=== PATIENT | female | born 1945 | race Hispanic/Latino ===

== ENCOUNTER 2017-02-18 11:35 | Inpatient (IN) | payer BC, MEDICARE ==
[2017-02-18] MEDS ORDERED: Albuterol-Ipratrop 3 mg / 0.5 (3 ml) UD INH STA (11:55)
--- NOTE | 2017-02-18 12:11 | C.PDOC ---
History Of Present Illness 71 y/o female pmhx COPD presents to the ED with complains of cough and congestion worsening over the past 2 days. Pt brought in by EMS, given multiple nebulizers with solumedrol, symptoms mildly improving. Pt denies fever, chills, chest pain, SOB or any other complaints. Time Seen by Provider: 02/18/17 11:45 Chief Complaint (Nursing): Shortness Of Breath History Per: Patient History/Exam Limitations: no limitations Onset/Duration Of Symptoms: Days Current Symptoms Are (Timing): Worse Associated Symptoms: denies: Fever, Chest Pain Recent travel outside of the [place]: No Past Medical History Reviewed: Historical Data, Nursing Documentation, Vital Signs Vital Signs: Last Vital Signs Temp 97.7 F 02/23/17 04:00 Pulse 76 02/23/17 08:00 Resp 25 H 02/23/17 08:00 BP 182/90 H 02/23/17 08:00 Pulse Ox 95 02/23/17 08:00 - Medical History PMH: Asthma, Bronchitis, COPD, HTN - [facility] Procedures ASSISTANCE WITH RESPIRATORY VENTILATION, >96 HRS, CPAP (11/15/15) INFLUENZA VACCINATION (12/11/14) VACCINATION NEC (12/11/14) Family History: States: Unknown Family Hx - Social History Hx Tobacco Use: Yes Hx Alcohol Use: No Hx Substance Use: No - Immunization History Hx Tetanus Toxoid Vaccination: No Hx Influenza Vaccination: No Hx Pneumococcal Vaccination: No Review Of Systems Except As Marked, All Systems Reviewed And Found Negative. Constitutional: Negative for: Fever ENT: Positive for: Nose Congestion Cardiovascular: Negative for: Chest Pain Respiratory: Positive for: Cough. Negative for: Shortness of Breath Physical Exam - Physical Exam Appears: Non-toxic, No Acute Distress Skin: Warm, Dry, No Rash Head: Atraumatic, Normacephalic Throat: Normal, No Erythema Neck: Normal ROM, Supple Chest: Symmetrical Cardiovascular: Rhythm Regular, No Murmur Respiratory: Decreased Breath Sounds (diminished), No Rales, No Rhonchi, Wheezing (bilateral) Gastrointestinal/Abdominal: Soft Extremity: No Pedal Edema Extremity: Bilateral: Atraumatic Neurological/Psych: Oriented x3 ED Course And Treatment - Laboratory Results Result Diagrams: 02/22/17 06:18 02/22/17 06:18 ECG: Interpreted By Me, Viewed By Me Rate From EC (BPM) O2 Sat by Pulse Oximetry: 98 (on room air) Pulse Ox Interpretation: Normal Medical Decision Making Medical Decision Making: suspected copd exacerbation ,r/o pna- labs imaging pendning. pt spike fever on arrival, antibiotics ordered Plan: EKG, CXR, labs, UA, IV fluids ekg MAT 116 1250: pt with persistent symptoms, wheezing, noted bnp. lasix ordered. accepted by dr munoz Disposition - Disposition Disposition: HOSPITALIZED Disposition Time: 12:52 Condition: FAIR - Clinical Impression Clinical Impression: CHF (congestive heart failure) - Scribe Statement The provider has reviewed the documentation as recorded by the Natalie Booth Provider Attestation: All medical record entries made by the Natalie were at my direction and personally dictated by me. I have reviewed the chart and agree that the record accurately reflects my personal performance of the history, physical exam, medical decision making, and the department course for this patient. I have also personally directed, reviewed, and agree with the discharge instructions and disposition. Decision To Admit - Pt Status Changed To: Hospital Disposition Of: Inpatient - Admit Certification Admit to Inpatient:: After my assessment, the patient will require hospitalization for at least two midnights. This is because of the severity of symptoms shown, intensity of services needed, and/or the medical risk in this patient being treated as an outpatient. - InPatient: Physician Admission Certification: I certify that this patient requires 2 or more midnights of care for the following reason:: pt with copd, comorbitites, needs iv steriods - . Bed Request Type: Telemetry Admitting Physician: Rachell Munoz Patient Diagnosis: CHF (congestive heart failure)
[2017-02-18 12:21] LABS: BASO # 0.1 K/uL (0.0-0.2); BASO % 1.1 % (0.0-2.0); EOS % 0.6 % (0.0-4.0); HEMATOCRIT 41.8 % (34.0-47.0); LYMPH # 0.6 K/uL (1.0-4.3); LYMPH % 8.7 % (20.0-40.0); MEAN CELL VOLUME 82.2 fL (81.0-99.0); MEAN CORPUSCULAR HEMOGLOBIN 26.6 pg (27.0-31.0); MEAN CORPUSCULAR HGB CONC 32.4 g/dL (33.0-37.0); MEAN PLATELET VOLUME 8.5 fL (7.2-11.7); MONO # 0.6 K/uL (0.0-0.8); MONO % 7.8 % (0.0-10.0); PLATELET COUNT 259 K/uL (130-400); WHITE BLOOD COUNT 7.2 K/uL (4.8-10.8)
[2017-02-18] MEDS ORDERED: Piperacill/Tazo 3.375gm in Dex 50 ML IVPB STA (12:23)
[2017-02-18 12:24] LABS: CHLORIDE 93 mmol/L (98-107)
[2017-02-18 12:25] LABS: POTASSIUM 3.3 mmol/L (3.6-5.2); SODIUM 135 mmol/L (132-148)
[2017-02-18 12:28] LABS: ALB/GLOB RATIO 1.3 (1.0-2.1); ALKALINE PHOSPHATASE 70 U/L (38-126); ALT/SGPT 20 U/L (9-52); AST/SGOT 27 U/L (14-36); BILIRUBIN,TOTAL 0.5 mg/dL (0.2-1.3); BLOOD UREA NITROGEN 13 mg/dL (7-17); CALCIUM 9.5 mg/dl (8.6-10.4); CARBON DIOXIDE 28 mmol/L (22-30); GFR AFRICAN-AMERICAN > 60; GLUCOSE,RANDOM 136 mg/dL (65-105); TOTAL PROTEIN 7.5 g/dL (6.3-8.3)
[2017-02-18 12:29] LABS: VENOUS BLOOD GAS BASE EXCESS 4.9 mmol/L (0.0-2.0); VENOUS BLOOD GAS PCO2 36 mmHg (40-60)
[2017-02-18] MEDS ORDERED: Albuterol-Ipratrop 3 mg / 0.5 (3 ml) UD ONE ×2 (12:34→15:03)
[2017-02-18 12:45] LABS: BASOPHIL 1 % (0-2); EOSINOPHIL 1 % (0-4); NEUTROPHIL 83 % (50-75); TOTAL CELLS COUNTED 100
[2017-02-18] MEDS ORDERED: Potassium Chloride 20 mEq ER Tab PO STA ×2 (12:53→18:17)
[2017-02-18] MEDS ORDERED: Piperacillin/Tazobact 3.375 gm 100 ML IVPB ONE (13:07)
[2017-02-18] MEDS ORDERED: Potassium Chloride 20 mEq/15 ml LIQ UD ONE (13:07)
--- NOTE | 2017-02-18 13:55 | RAD ---
PROCEDURE: CHEST RADIOGRAPH, 1 VIEW Technique: Single view portable semi erect @ 12:10. HISTORY: chest pain COMPARISON: 11/06/2015. FINDINGS: LUNGS: Clear. PLEURA: No pneumothorax or pleural fluid seen. CARDIOVASCULAR: Alli for cardiac OSSEOUS STRUCTURES: No significant abnormalities. VISUALIZED UPPER ABDOMEN: Normal. OTHER FINDINGS: None. IMPRESSION: No active disease. No acute/significant interval changes.
[2017-02-18] MEDS: Albuterol-Ipratrop 3 mg / 0.5 (3 ml) UD INH SCH ×2 (15:02→22:00)
[2017-02-18 15:18] LABS: RBC URINE 3 /hpf (0-3); URINE BILIRUBIN NEGATIVE (NEGATIVE); URINE BLOOD 1+ (NEGATIVE); URINE COLOR Straw (YELLOW); URINE GLUCOSE (UA) NORMAL (Normal); URINE KETONE NEGATIVE (NEGATIVE); URINE LEUKOCYTE ESTERASE NEG Leu/uL (Negative); URINE PROTEIN NEGATIVE (NEGATIVE); URINE UROBILINOGEN NORMAL mg/dL (0.2-1.0); WBC URINE 3 /hpf (0-5)
--- NOTE | 2017-02-18 15:20 | CP.PCM.HP ---
History of Present Illness - History of Present Illness History of Present Illness: 71 years old female patient with past medical history of bronchitis COPD hypertension asthma now presented with complaint of nasal congestion and cough since last 2 days. Patient was brought to ED by EMS who treated the patient with nebulizers with Solu-Medrol. Symptoms improving. No fever, vomiting, dizziness, chest pain. Present on Admission - Present on Admission Any Indicators Present on Admission: No Past Patient History - Infectious Disease Hx of Infectious Diseases: None - Past Medical History & Family History Past Medical History?: Yes - Past Social History Smoking Status: Heavy Smoker > 10 Cigarettes Daily - CARDIAC Hx Hypertension: Yes - PULMONARY Hx Asthma: Yes Hx Bronchitis: Yes Hx Chronic Obstructive Pulmonary Disease (COPD): Yes - NEUROLOGICAL Hx Neurological Disorder: No - HEENT Hx HEENT Problems: No Other/Comment: uses bifocal eyeglasses - RENAL Hx Chronic Kidney Disease: No - ENDOCRINE/METABOLIC Hx Endocrine Disorders: No - HEMATOLOGICAL/ONCOLOGICAL Hx Blood Disorders: Yes - INTEGUMENTARY Hx Dermatological Problems: No - MUSCULOSKELETAL/RHEUMATOLOGICAL Hx Musculoskeletal Disorders: No Hx Falls: No - GASTROINTESTINAL Hx Gastrointestinal Disorders: No - GENITOURINARY/GYNECOLOGICAL Hx Genitourinary Disorders: No - PSYCHIATRIC Hx Substance Use: No - SURGICAL HISTORY Hx Surgeries: Yes Other/Comment: multiple removal of lymphoma-left groin(1989) - ANESTHESIA Hx Anesthesia: Yes Hx Anesthesia Reactions: No Hx Malignant Hyperthermia: No Meds Home Medications: Home Medication List Medication Instructions Recorded Confirmed Type Losartan [Cozaar] 100 mg PO DAILY #30 tab 02/26/17 Rx Methylprednisolone [Medrol Dose 4 mg PO DAILY #21 mg 02/26/17 Rx Pack (21 tabs)] Rivaroxaban [Xarelto] 20 mg PO DAILY #14 tab 02/26/17 Rx Verapamil HCl [Calan Sr] 240 mg PO DAILY #30 ter 02/26/17 Rx hydroCHLOROthiazide [Hydrodiuril] 25 mg PO DAILY #30 tab 02/26/17 Rx Allergies/Adverse Reactions: Allergies Allergy/AdvReac Type Severity Reaction Status Date / Time No Known Allergies Allergy Verified 02/18/17 11:43 Results - Vital Signs Recent Vital Signs: Last Vital Signs Temp 100.4 F H 02/18/17 11:35 Pulse 110 H 02/18/17 11:35 Resp 24 02/18/17 11:38 BP 138/75 02/18/17 11:35 Pulse Ox 98 02/18/17 12:54 - Labs Result Diagrams: 02/22/17 06:18 02/22/17 06:18 Labs: Laboratory Results - last 24 hr 02/18/17 12:54 Influenza Typ A,B (EIA) Pos for influenza b H Assessment & Plan (1) Atrial fibrillation with RVR Status: Acute (2) CHF (congestive heart failure) Status: Acute (3) HTN (hypertension) Status: Acute (4) Hyponatremia Status: Acute (5) Influenza B Status: Acute (6) Prophylactic measure Status: Acute (7) Respiratory failure Status: Acute (8) COPD (chronic obstructive pulmonary disease) Status: Chronic (9) Chronic sinusitis with recurrent bronchitis Status: Chronic Priority: High (10) Hx of lymphoma Status: Chronic (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
[2017-02-18] MEDS: Moxifloxacin IV 400mg/250ml NS 250 ML IVPB SCH (18:45)
[2017-02-18] MEDS ORDERED: Albuterol-Ipratrop 3 mg / 0.5 (3 ml) UD INH SCH (20:00)
[2017-02-18] MEDS: MethylPREDNISolone 40 mg Vial IVP SCH (21:52)
[2017-02-18] MEDS: Fluticasone-Salmeterol 250-50mcg Diskus INH SCH (22:00)
[2017-02-19] MEDS: Albuterol-Ipratrop 3 mg / 0.5 (3 ml) UD INH SCH ×4 (01:33→20:27)
[2017-02-19] MEDS: MethylPREDNISolone 40 mg Vial IVP SCH ×3 (05:38→21:25)
[2017-02-19] MEDS: Fluticasone-Salmeterol 250-50mcg Diskus INH SCH ×2 (09:29→20:27)
[2017-02-19] MEDS: Tiotropium 18 mcg Cap For Inhalation IH SCH (09:30)
[2017-02-19] MEDS: Pantoprazole 40 mg EC Tab PO SCH (10:29)
[2017-02-19] MEDS: Enoxaparin 40 mg Syringe SC SCH (10:29)
[2017-02-19] MEDS: Theophylline 200mg ER 24 hrs Cap PO SCH (10:29)
--- NOTE | 2017-02-19 10:33 | CP.PCM.PN ---
Subjective - Date & Time of Evaluation Date of Evaluation: 02/19/17 Time of Evaluation: 11:20 - Subjective Subjective: clinically same Objective - Vital Signs/Intake and Output Vital Signs (last 24 hours): Temp Pulse Resp BP Pulse Ox 98 F 87 20 120/70 93 L 02/19/17 07:00 02/19/17 07:00 02/19/17 07:00 02/19/17 10:29 02/19/17 07:00 Intake and Output: 02/19/17 02/19/17 06:59 18:59 Intake Total 100 Output Total 250 Balance -150 - Medications Medications: Current Medications Albuterol/Ipratropium (Duoneb 3 Mg/0.5 Mg (3 Ml) Ud) 3 ml INH RQ6 [facility] Last Admin: 02/19/17 07:27 Dose: 3 ml Enoxaparin Sodium (Lovenox) 40 mg SC DAILY [facility] Last Admin: 02/19/17 10:29 Dose: 40 mg Furosemide (Lasix) 40 mg IVP DAILY [facility] Last Admin: 02/19/17 10:29 Dose: 40 mg Moxifloxacin HCl (Avelox Iv 400mg/250ml Ns) 250 mls @ 167 mls/hr IVPB Q24H [facility] Last Admin: 02/18/17 18:45 Dose: 167 mls/hr Losartan Potassium (Cozaar) 50 mg PO DAILY [facility] Last Admin: 02/19/17 10:29 Dose: 50 mg Methylprednisolone (Solu-Medrol) 60 mg IVP Q8H [facility] Last Admin: 02/19/17 05:38 Dose: 60 mg Montelukast Sodium (Singulair) 10 mg PO HS [facility] Last Admin: 02/18/17 21:51 Dose: 10 mg Oseltamivir Phosphate (Tamiflu Cap) 75 mg PO BID [facility] Stop: 02/24/17 09:03 Last Admin: 02/19/17 10:29 Dose: 75 mg Pantoprazole Sodium (Protonix Ec Tab) 40 mg PO DAILY [facility] Last Admin: 02/19/17 10:29 Dose: 40 mg Fluticasone/Salmeterol (Advair Diskus 250/50) 1 puff INH RQ12 [facility] Last Admin: 02/19/17 09:29 Dose: 1 puff Theophylline (Ahsan-24) 200 mg PO DAILY [facility] Last Admin: 02/19/17 10:29 Dose: 200 mg Tiotropium [place] (Spiriva) 18 mcg IH RQD [facility] Last Admin: 02/19/17 09:30 Dose: 18 mcg - Labs Labs: PT 11.7 SECONDS (9.7-12.2) 02/18/17 12:13 INR 1.0 02/18/17 12:13 APTT 38 SECONDS (21-34) H 02/18/17 12:13 - Constitutional Appears: Well - Head Exam Head Exam: ATRAUMATIC, NORMAL INSPECTION, NORMOCEPHALIC - Eye Exam Eye Exam: EOMI, Normal appearance, PERRL Pupil Exam: NORMAL ACCOMODATION, PERRL - ENT Exam ENT Exam: Mucous Membranes Moist, Normal Exam - Neck Exam Neck Exam: Full ROM, Normal Inspection. absent: Lymphadenopathy - Respiratory Exam Respiratory Exam: Decreased Breath Sounds - Cardiovascular Exam Cardiovascular Exam: REGULAR RHYTHM, +S1, +S2 - GI/Abdominal Exam GI & Abdominal Exam: Soft, Diminished Bowel Sounds - Rectal Exam Rectal Exam: Deferred Assessment and Plan (1) Atrial fibrillation with RVR Status: Acute (2) CHF (congestive heart failure) Status: Acute (3) HTN (hypertension) Status: Acute (4) Hyponatremia Status: Acute (5) Influenza B Status: Acute (6) Prophylactic measure Status: Acute (7) Respiratory failure Status: Acute (8) COPD (chronic obstructive pulmonary disease) Status: Chronic (9) Chronic sinusitis with recurrent bronchitis Status: Chronic (10) Hx of lymphoma Status: Chronic (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
[2017-02-19 11:45] LABS: CHLORIDE 95 mmol/L (98-107)
[2017-02-19 11:46] LABS: POTASSIUM 3.6 mmol/L (3.6-5.2); SODIUM 139 mmol/L (132-148)
[2017-02-19 11:48] LABS: ALB/GLOB RATIO 1.2 (1.0-2.1); AST/SGOT 33 U/L (14-36); BILIRUBIN,TOTAL 0.3 mg/dL (0.2-1.3); BLOOD UREA NITROGEN 24 mg/dL (7-17); CARBON DIOXIDE 29 mmol/L (22-30); GFR AFRICAN-AMERICAN > 60; TOTAL PROTEIN 7.5 g/dL (6.3-8.3)
[2017-02-19 11:49] LABS: ALKALINE PHOSPHATASE 56 U/L (38-126); ALT/SGPT 22 U/L (9-52); CALCIUM 9.1 mg/dl (8.6-10.4); GLUCOSE,RANDOM 172 mg/dL (65-105)
[2017-02-19] MEDS: Moxifloxacin IV 400mg/250ml NS 250 ML IVPB SCH (13:46)
--- NOTE | 2017-02-19 18:46 | CP.PCM.CON ---
History of Present Illness - History of Present Illness History of Present Illness: flu illness with exacerbation of copd, currently feels much better, with resp. diff. Review of Systems - Review of Systems All systems: reviewed and no additional remarkable complaints except - Respiratory Respiratory: Cough Past Patient History - Infectious Disease Hx of Infectious Diseases: None - Past Medical History & Family History Past Medical History?: Yes - Past Social History Smoking Status: Former Smoker - CARDIAC Hx Hypertension: Yes - PULMONARY Hx Chronic Obstructive Pulmonary Disease (COPD): Yes - NEUROLOGICAL Hx Neurological Disorder: No - HEENT Hx HEENT Problems: No Other/Comment: uses bifocal eyeglasses - RENAL Hx Chronic Kidney Disease: No - ENDOCRINE/METABOLIC Hx Endocrine Disorders: No - HEMATOLOGICAL/ONCOLOGICAL Hx Blood Disorders: No - INTEGUMENTARY Hx Dermatological Problems: No - MUSCULOSKELETAL/RHEUMATOLOGICAL Hx Musculoskeletal Disorders: No Hx Falls: No - GASTROINTESTINAL Hx Gastrointestinal Disorders: No - GENITOURINARY/GYNECOLOGICAL Hx Genitourinary Disorders: No - PSYCHIATRIC Hx Substance Use: No - SURGICAL HISTORY Hx Surgeries: Yes Other/Comment: multiple removal of lymphoma-left groin(1989) - ANESTHESIA Hx Anesthesia: Yes Hx Anesthesia Reactions: No Hx Malignant Hyperthermia: No Meds Allergies/Adverse Reactions: Allergies Allergy/AdvReac Type Severity Reaction Status Date / Time No Known Allergies Allergy Verified 02/18/17 11:43 - Medications Medications: Current Medications Albuterol/Ipratropium (Duoneb 3 Mg/0.5 Mg (3 Ml) Ud) 3 ml INH RQ6 [facility] Last Admin: 02/19/17 13:59 Dose: 3 ml Enoxaparin Sodium (Lovenox) 40 mg SC DAILY [facility] Last Admin: 02/19/17 10:29 Dose: 40 mg Furosemide (Lasix) 40 mg IVP DAILY [facility] Last Admin: 02/19/17 10:29 Dose: 40 mg Moxifloxacin HCl (Avelox Iv 400mg/250ml Ns) 250 mls @ 167 mls/hr IVPB Q24H [facility] Last Admin: 02/19/17 13:46 Dose: 167 mls/hr Losartan Potassium (Cozaar) 50 mg PO DAILY [facility] Last Admin: 02/19/17 10:29 Dose: 50 mg Methylprednisolone (Solu-Medrol) 60 mg IVP Q8H [facility] Last Admin: 02/19/17 13:46 Dose: 60 mg Montelukast Sodium (Singulair) 10 mg PO HS [facility] Last Admin: 02/18/17 21:51 Dose: 10 mg Oseltamivir Phosphate (Tamiflu Cap) 75 mg PO BID [facility] Stop: 02/24/17 09:03 Last Admin: 02/19/17 17:33 Dose: 75 mg Pantoprazole Sodium (Protonix Ec Tab) 40 mg PO DAILY [facility] Last Admin: 02/19/17 10:29 Dose: 40 mg Fluticasone/Salmeterol (Advair Diskus 250/50) 1 puff INH RQ12 [facility] Last Admin: 02/19/17 09:29 Dose: 1 puff Theophylline (Ahsan-24) 200 mg PO DAILY [facility] Last Admin: 02/19/17 10:29 Dose: 200 mg Tiotropium [place] (Spiriva) 18 mcg IH RQD [facility] Last Admin: 02/19/17 09:30 Dose: 18 mcg Physical Exam - Constitutional Appears: No Acute Distress - Head Exam Head Exam: ATRAUMATIC, NORMOCEPHALIC - Eye Exam Eye Exam: Normal appearance - ENT Exam ENT Exam: Mucous Membranes Moist - Neck Exam Neck exam: Positive for: Normal Inspection - Respiratory Exam Respiratory Exam: Decreased Breath Sounds, Prolonged Expiratory Phase - Cardiovascular Exam Cardiovascular Exam: +S1, +S2 - GI/Abdominal Exam GI & Abdominal Exam: Normal Bowel Sounds - Rectal Exam Rectal Exam: Deferred - Back Exam Additional comments: kyphosis - Neurological Exam Neurological exam: Alert, Oriented x3 - Psychiatric Exam Psychiatric exam: Normal Affect, Normal Mood - Skin Skin Exam: Intact Results - Vital Signs Recent Vital Signs: Last Vital Signs Temp 97.9 F 02/19/17 16:00 Pulse 80 02/19/17 17:58 Resp 20 02/19/17 16:00 BP 137/74 02/19/17 16:00 Pulse Ox 97 02/19/17 16:00 - Labs Result Diagrams: 02/18/17 12:13 02/19/17 11:31 Labs: Laboratory Results - last 24 hr 02/19/17 11:31 Sodium 139 Potassium 3.6 Chloride 95 L Carbon Dioxide 29 Anion Gap 19 BUN 24 H Creatinine 1.0 Est GFR ( Amer) > 60 Est GFR (Non-Af Amer) 54 Random Glucose 172 H Calcium 9.1 Total Bilirubin 0.3 AST 33 ALT 22 Alkaline Phosphatase 56 Total Protein 7.5 Albumin 4.1 Globulin 3.4 Albumin/Globulin Ratio 1.2 Assessment & Plan (1) COPD (chronic obstructive pulmonary disease) Status: Chronic (2) COPD with exacerbation Status: Resolved (3) Influenza B Status: Acute
[2017-02-20] MEDS: Albuterol-Ipratrop 3 mg / 0.5 (3 ml) UD INH SCH ×4 (01:32→22:23)
[2017-02-20] MEDS: MethylPREDNISolone 40 mg Vial IVP SCH ×3 (05:17→22:30)
[2017-02-20] MEDS: Tiotropium 18 mcg Cap For Inhalation IH SCH (07:20)
[2017-02-20] MEDS: Fluticasone-Salmeterol 250-50mcg Diskus INH SCH (07:21)
[2017-02-20] MEDS: Pantoprazole 40 mg EC Tab PO SCH (11:03)
[2017-02-20] MEDS: Theophylline 200mg ER 24 hrs Cap PO SCH (11:03)
[2017-02-20] MEDS: Enoxaparin 40 mg Syringe SC SCH (11:04)
[2017-02-20] MEDS: Moxifloxacin IV 400mg/250ml NS 250 ML IVPB SCH (13:43)
[2017-02-20 16:19] LABS: BASO % 0.2 % (0.0-2.0); HEMATOCRIT 43.5 % (34.0-47.0); LYMPH # 0.8 K/uL (1.0-4.3); LYMPH % 4.7 % (20.0-40.0); MEAN CELL VOLUME 82.8 fL (81.0-99.0); MEAN CORPUSCULAR HEMOGLOBIN 26.6 pg (27.0-31.0); MEAN CORPUSCULAR HGB CONC 32.1 g/dL (33.0-37.0); MEAN PLATELET VOLUME 8.7 fL (7.2-11.7); MONO % 5.9 % (0.0-10.0); PLATELET COUNT 348 K/uL (130-400); WHITE BLOOD COUNT 17.8 K/uL (4.8-10.8)
--- NOTE | 2017-02-20 16:22 | CP.PCM.PN ---
<Gladys Toure - Last Filed: 02/20/17 16:24> Subjective - Date & Time of Evaluation Date of Evaluation: 02/20/17 Time of Evaluation: 16:00 - Subjective Subjective: Rapid Response Note Rapid response called at 15:59 for heart rate in 170s and 180s and chest pain. Patient reports chest tightness and pain for 30 minutes. Patient does not have any history of CAD or Atrial fibrillation documented. Patient denies CAD, a fib , thyroid disease history. Patient denies recent surgeries. Patient was moving around, "up and about" before hospital admission. Tachycardia on auscultation. Patient had Duoneb at 13:35. Lungs clear to auscultation. EKG, LACEY, d dimer, cbc, cmp, magnesium and theophylline level ordered stat. Theophylline and Avelox held. Patient given cardizem 20mg IVP with minimal response. Patient given cardizem 10mg IVP stat. HR went down to 120s-140s. Patient put on cardizem drip 10mg/hr. Monitoring BP throughout. After total of 30mg IVP BP was at 149/79. Patient put on nonrebreather. BP 129/79 after a few minutes on cardizem drip. HR still in 110s to 150s. Cardizem drip cut down to 8mg/hr due to decreasing BP. Demolition Specialist, Dr. Castro, consulted. Dr. Castro increased drip to 15mg/hr. Patient being transferred to ICU. Objective - Vital Signs/Intake and Output Vital Signs (last 24 hours): Temp Pulse Resp BP Pulse Ox 97.4 F L 88 20 124/67 96 02/20/17 07:00 02/20/17 07:00 02/20/17 07:00 02/20/17 11:04 02/20/17 07:00 Intake and Output: 02/20/17 02/20/17 06:59 18:59 Output Total 400 Balance -400 - Medications Medications: Current Medications Acetaminophen (Tylenol 325mg Tab) 650 mg PO Q6 PRN PRN Reason: Fever >100.4 F Last Admin: 02/20/17 12:18 Dose: 650 mg Albuterol/Ipratropium (Duoneb 3 Mg/0.5 Mg (3 Ml) Ud) 3 ml INH RQ6 [facility] Last Admin: 02/20/17 13:35 Dose: 3 ml Diltiazem HCl (Cardizem) 10 mg IVP STAT [facility] Stop: 02/20/17 16:13 Enoxaparin Sodium (Lovenox) 40 mg SC DAILY [facility] Last Admin: 02/20/17 11:04 Dose: 40 mg Furosemide (Lasix) 40 mg IVP DAILY [facility] Last Admin: 02/20/17 11:04 Dose: 40 mg Moxifloxacin HCl (Avelox Iv 400mg/250ml Ns) 250 mls @ 167 mls/hr IVPB Q24H [facility] Last Admin: 02/20/17 13:43 Dose: 167 mls/hr Losartan Potassium (Cozaar) 50 mg PO DAILY [facility] Last Admin: 02/20/17 11:03 Dose: 50 mg Methylprednisolone (Solu-Medrol) 40 mg IVP Q8 [facility] Last Admin: 02/20/17 13:46 Dose: 40 mg Montelukast Sodium (Singulair) 10 mg PO HS [facility] Last Admin: 02/19/17 21:25 Dose: 10 mg Oseltamivir Phosphate (Tamiflu Cap) 75 mg PO BID [facility] Stop: 02/24/17 09:03 Last Admin: 02/20/17 11:03 Dose: 75 mg Pantoprazole Sodium (Protonix Ec Tab) 40 mg PO DAILY [facility] Last Admin: 02/20/17 11:03 Dose: 40 mg Fluticasone/Salmeterol (Advair Diskus 250/50) 1 puff INH RQ12 [facility] Last Admin: 02/20/17 07:21 Dose: 1 puff Theophylline (Ahsan-24) 200 mg PO DAILY [facility] Last Admin: 02/20/17 11:03 Dose: 200 mg Tiotropium [place] (Spiriva) 18 mcg IH RQD [facility] Last Admin: 02/20/17 07:20 Dose: 18 mcg - Labs Labs: 02/19/17 11:31 PT 11.7 SECONDS (9.7-12.2) 02/18/17 12:13 INR 1.0 02/18/17 12:13 APTT 38 SECONDS (21-34) H 02/18/17 12:13 <Jamilah Luu V - Last Filed: 02/26/17 20:16> Objective - Vital Signs/Intake and Output Vital Signs (last 24 hours): Temp Pulse Resp BP Pulse Ox 98.2 F 77 20 134/85 97 02/26/17 15:00 02/26/17 15:00 02/26/17 15:00 02/26/17 15:00 02/26/17 15:00 - Labs Labs: 02/22/17 06:18 02/22/17 06:18 PT 11.7 SECONDS (9.7-12.2) 02/18/17 12:13 INR 1.0 02/18/17 12:13 APTT 38 SECONDS (21-34) H 02/18/17 12:13 Attending/Attestation - Attestation Notes (Text): Late computer entry: responded to rapid response for new onset atrial fibrillation. Patient denies prior heart problems. Patient given Cardizem IVP X1 but not rate controlled prompted Cardizem drip. ICU consulted given patient is cardizen drip and will need further monitoring to be titrated. PMD, Dr Caity Marrero notified and aware patient needs to be transferred to ICU for further monitoring.
[2017-02-20 16:29] LABS: POTASSIUM 3.9 mmol/L (3.6-5.2)
[2017-02-20 16:32] LABS: ALB/GLOB RATIO 1.3 (1.0-2.1); BILIRUBIN,TOTAL 0.3 mg/dL (0.2-1.3); CALCIUM 8.9 mg/dl (8.6-10.4); TOTAL PROTEIN 7.3 g/dL (6.3-8.3)
--- NOTE | 2017-02-20 16:51 | CP.PCM.CON ---
<Sarah Mccall - Last Filed: 02/20/17 17:43> History of Present Illness - History of Present Illness History of Present Illness: CRITICAL CARE CONSULT NOTE 71 year old female with PMHx significant for HTN, COPD and lymphoma s/p chemo presents for critical care monitoring following a STERILE PROCESS COORDINATOR for sudden new onset tachycardia (HR 140's-150s) on the medical floor at approximately 15:59pm. Patient states that she started experiencing a heart burn type-sensation around 15:30pm shortly after eating lunch. She thought it was just related to the meals but then the sensation changed to chest tightness which lasted for approximately half an hour. Patient states that she has never experienced this sensation before. She admits to initial dyspnea as well. She denies palpitations , nausea, vomiting, headaches, vision changes, paresthesias or subjective fevers or chills. Per the STERILE PROCESS COORDINATOR Note: Patient given cardizem 20mg IVP with minimal response. Patient then given cardizem 10mg IVP stat. HR went down to 120s-140s. Patient put on cardizem drip 10mg/hr. After total of 30mg IVP, BP was 149/79. Patient placed on nonrebreather. BP 129/79 after a few minutes on cardizem drip. HR still in 110s to 150s. Cardizem drip cut down to 8mg/hr due to decreasing BP. [employer], Dr. Castro, consulted. Dr. Castro increased drip to 15mg/hr. Patient later transferred for critical care monitoring. PMHx- as noted above PSHx- Excision of Lymphoma (groin many years ago ) Fam Hx- Two sisters of lung cancer. Other sister currently has lung cancer ; Mother lived to 90 years of age Social Hx- Smoked 1 ppd for 50+ years. Patient quit approx 2.5 years ago; Denies illicit drug use or alcohol use; She lives with daughter and grandson Allergies- Seasonal PMD: Dr. Francisco Review of Systems - Constitutional Constitutional: As Per HPI. absent: Fever, Frequent Falls, Headache - EENT Eyes: absent: Blind Spots, Blurred Vision, Change in Vision Ears: absent: Decreased Hearing Nose/Mouth/Throat: absent: Epistaxis, Dry Mouth - Cardiovascular Cardiovascular: As Per HPI, Chest Pain, Rapid Heart Rate - Respiratory Respiratory: Cough, Wheezing. absent: Stridor - Gastrointestinal Gastrointestinal: Heartburn. absent: Abdominal Pain, Belching - Musculoskeletal Musculoskeletal: As Per HPI - Integumentary Integumentary: As Per HPI, Dry Skin - Neurological Neurological: As Per HPI - Psychiatric Psychiatric: absent: Anxiety Past Patient History - Infectious Disease Hx of Infectious Diseases: None - Past Medical History & Family History Past Medical History?: Yes - Past Social History Smoking Status: Former Smoker Alcohol: None Drugs: Denies Home Situation {Lives}: With Family - CARDIAC Hx Hypertension: Yes - PULMONARY Hx Chronic Obstructive Pulmonary Disease (COPD): Yes - NEUROLOGICAL Hx Neurological Disorder: No - HEENT Hx HEENT Problems: No Other/Comment: uses bifocal eyeglasses - RENAL Hx Chronic Kidney Disease: No - ENDOCRINE/METABOLIC Hx Endocrine Disorders: No - HEMATOLOGICAL/ONCOLOGICAL Hx Blood Disorders: No - INTEGUMENTARY Hx Dermatological Problems: No - MUSCULOSKELETAL/RHEUMATOLOGICAL Hx Musculoskeletal Disorders: No Hx Falls: No - GASTROINTESTINAL Hx Gastrointestinal Disorders: No - GENITOURINARY/GYNECOLOGICAL Hx Genitourinary Disorders: No - PSYCHIATRIC Hx Substance Use: No - SURGICAL HISTORY Hx Surgeries: Yes Other/Comment: multiple removal of lymphoma-left groin(1989) - ANESTHESIA Hx Anesthesia: Yes Hx Anesthesia Reactions: No Hx Malignant Hyperthermia: No Meds Allergies/Adverse Reactions: Allergies Allergy/AdvReac Type Severity Reaction Status Date / Time No Known Allergies Allergy Verified 02/18/17 11:43 - Medications Medications: Current Medications Acetaminophen (Tylenol 325mg Tab) 650 mg PO Q6 PRN PRN Reason: Fever >100.4 F Last Admin: 02/20/17 12:18 Dose: 650 mg Albuterol/Ipratropium (Duoneb 3 Mg/0.5 Mg (3 Ml) Ud) 3 ml INH RQ6 [facility] Last Admin: 02/20/17 13:35 Dose: 3 ml Enoxaparin Sodium (Lovenox) 40 mg SC DAILY [facility] Last Admin: 02/20/17 11:04 Dose: 40 mg Furosemide (Lasix) 40 mg IVP DAILY [facility] Last Admin: 02/20/17 11:04 Dose: 40 mg Moxifloxacin HCl (Avelox Iv 400mg/250ml Ns) 250 mls @ 167 mls/hr IVPB Q24H [facility] Last Admin: 02/20/17 13:43 Dose: 167 mls/hr Diltiazem HCl 125 mg/ Dextrose 125 mls @ 10 mls/hr IV .[id number] KIM; 10 MG/HR PRN Reason: Protocol Losartan Potassium (Cozaar) 50 mg PO DAILY [facility] Last Admin: 02/20/17 11:03 Dose: 50 mg Methylprednisolone (Solu-Medrol) 40 mg IVP Q8 [facility] Last Admin: 02/20/17 13:46 Dose: 40 mg Montelukast Sodium (Singulair) 10 mg PO HS [facility] Last Admin: 02/19/17 21:25 Dose: 10 mg Oseltamivir Phosphate (Tamiflu Cap) 75 mg PO BID [facility] Stop: 02/24/17 09:03 Last Admin: 02/20/17 11:03 Dose: 75 mg Pantoprazole Sodium (Protonix Ec Tab) 40 mg PO DAILY [facility] Last Admin: 02/20/17 11:03 Dose: 40 mg Fluticasone/Salmeterol (Advair Diskus 250/50) 1 puff INH RQ12 [facility] Last Admin: 02/20/17 07:21 Dose: 1 puff Theophylline (Ahsan-24) 200 mg PO DAILY [facility] Last Admin: 02/20/17 11:03 Dose: 200 mg Tiotropium [place] (Spiriva) 18 mcg IH RQD [facility] Last Admin: 02/20/17 07:20 Dose: 18 mcg Physical Exam - Constitutional Appears: No Acute Distress - Head Exam Head Exam: ATRAUMATIC, NORMAL INSPECTION, NORMOCEPHALIC - Eye Exam Eye Exam: EOMI, Normal appearance, PERRL Pupil Exam: NORMAL ACCOMODATION, PERRL - ENT Exam ENT Exam: Mucous Membranes Moist - Neck Exam Neck exam: Positive for: Full Rom - Respiratory Exam Respiratory Exam: Wheezes, NORMAL BREATHING PATTERN. absent: Respiratory Distress, Stridor - Cardiovascular Exam Cardiovascular Exam: Tachycardia, +S1, +S2 - GI/Abdominal Exam GI & Abdominal Exam: Normal Bowel Sounds, Soft. absent: Tenderness - Extremities Exam Extremities exam: Positive for: full ROM, normal capillary refill, pedal pulses present - Back Exam Back exam: FULL ROM - Neurological Exam Neurological exam: Alert, CN II-XII Intact, Normal Gait, Oriented x3 - Psychiatric Exam Psychiatric exam: Normal Affect, Normal Mood - Skin Skin Exam: Dry, Normal Color, Warm Additional comments: decreased skin turgor Results - Vital Signs Recent Vital Signs: Last Vital Signs Temp 97.4 F L 02/20/17 07:00 Pulse 88 02/20/17 07:00 Resp 20 02/20/17 07:00 BP 124/67 02/20/17 11:04 Pulse Ox 96 02/20/17 07:00 - Labs Result Diagrams: 02/20/17 16:14 02/20/17 16:14 Labs: Laboratory Results - last 24 hr 02/20/17 02/20/17 16:02 16:14 WBC 17.8 H D RBC 5.26 H Hgb 14.0 Hct 43.5 MCV 82.8 MCH 26.6 L MCHC 32.1 L RDW 15.0 H Plt Count 348 MPV 8.7 Neut % (Auto) 89.2 H Lymph % (Auto) 4.7 L Howard % (Auto) 5.9 Eos % (Auto) 0.0 Baso % (Auto) 0.2 Neut # 15.8 H Lymph # 0.8 L Howard # 1.0 H Eos # 0.0 Baso # 0.0 Sodium 137 Potassium 3.9 Chloride 92 L Carbon Dioxide 29 Anion Gap 20 BUN 35 H Creatinine 1.1 Est GFR ( Amer) 59 Est GFR (Non-Af Amer) 49 POC Glucose (mg/dL) 134 H Random Glucose 137 H Calcium 8.9 Magnesium 2.0 Total Bilirubin 0.3 AST 37 H ALT 23 Alkaline Phosphatase 56 Total Creatine Kinase 237 H CK-MB (Mass) 8.60 H Troponin I, Quant 0.0800 Total Protein 7.3 Albumin 4.2 Globulin 3.2 Albumin/Globulin Ratio 1.3 Assessment & Plan - Assessment and Plan (Free Text) Assessment: 71 year old female with PMHx signficant for HTN, COPD and lymphoma s/p chemo presents for critical care monitoring following an STERILE PROCESS COORDINATOR on the floor for new onset tachycardia ( HR 140-150's) initially unresponsive to cardizem drip. Once transferred, patient responsive to IV labetalol. Will continue to monitor. Plan: Neuro: aaox3 in no acute distress Cardio: Hx of HTN Cardizem PO- not effective Cardizem drip- not effective Labetalol 20 mg IV given once- effective in bringing HR down Lopressor 5 mg IV Q6 F/U D-Dimer, Troponin III. (First two LACEY negative) Heart Healthy diet Pulm: On NRB- Saturation 100% Influenza Positive:Droplet, Contact precautions, Tamiflu PO BID (Started 02/19) Hx of COPD- Cont management per Pulm: Yohannes Cat Spiriva GI: Heart Healthy diet Endo: Check HgbA1c Maintain euglycemia Nephro: Continue to monitor BUN/Cr Monitor Ins and outs ID: Influenza positive- See aforementioned (under pulm) WBC - elevated Droplet, Contact precautions, Tamiflu PO BID (Started 02/19) MSK: PT/OT OOB to chair Prophylaxis: Lovenox 40 SC daily PPI 40mg PO daily <Karuna Falcon - Last Filed: 02/20/17 18:29> Meds - Medications Medications: Current Medications Acetaminophen (Tylenol 325mg Tab) 650 mg PO Q6 PRN PRN Reason: Fever >100.4 F Last Admin: 02/20/17 12:18 Dose: 650 mg Albuterol/Ipratropium (Duoneb 3 Mg/0.5 Mg (3 Ml) Ud) 3 ml INH RQ6 [facility] Last Admin: 02/20/17 13:35 Dose: 3 ml Enoxaparin Sodium (Lovenox) 40 mg SC DAILY [facility] Last Admin: 02/20/17 11:04 Dose: 40 mg Furosemide (Lasix) 40 mg IVP DAILY [facility] Last Admin: 02/20/17 11:04 Dose: 40 mg Moxifloxacin HCl (Avelox Iv 400mg/250ml Ns) 250 mls @ 167 mls/hr IVPB Q24H [facility] Last Admin: 02/20/17 13:43 Dose: 167 mls/hr Diltiazem HCl 125 mg/ Dextrose 125 mls @ 10 mls/hr IV .[id number] [facility]; 10 MG/HR PRN Reason: Protocol Last Titration: 02/20/17 17:15 Dose: 0 mg/hr Losartan Potassium (Cozaar) 50 mg PO DAILY [facility] Last Admin: 02/20/17 11:03 Dose: 50 mg Methylprednisolone (Solu-Medrol) 40 mg IVP Q8 [facility] Last Admin: 02/20/17 13:46 Dose: 40 mg Metoprolol Tartrate (Lopressor) 5 mg IVP Q6H [facility] Montelukast Sodium (Singulair) 10 mg PO HS [facility] Last Admin: 02/19/17 21:25 Dose: 10 mg Oseltamivir Phosphate (Tamiflu Cap) 75 mg PO BID [facility] Stop: 02/24/17 09:03 Last Admin: 02/20/17 17:56 Dose: 75 mg Pantoprazole Sodium (Protonix Ec Tab) 40 mg PO DAILY [facility] Last Admin: 02/20/17 11:03 Dose: 40 mg Fluticasone/Salmeterol (Advair Diskus 250/50) 1 puff INH RQ12 [facility] Last Admin: 02/20/17 07:21 Dose: 1 puff Theophylline (Ahsan-24) 200 mg PO DAILY [facility] Last Admin: 02/20/17 11:03 Dose: 200 mg Tiotropium [place] (Spiriva) 18 mcg IH RQD [facility] Last Admin: 02/20/17 07:20 Dose: 18 mcg Results - Vital Signs Recent Vital Signs: Last Vital Signs Temp 97.5 F L 02/20/17 17:00 Pulse 81 02/20/17 17:25 Resp 18 02/20/17 17:25 BP 81/51 L 02/20/17 17:25 Pulse Ox 98 02/20/17 17:25 - Labs Result Diagrams: 02/20/17 16:14 02/20/17 16:14 Labs: Laboratory Results - last 24 hr 02/20/17 02/20/17 02/20/17 16:02 16:14 18:01 WBC 17.8 H D RBC 5.26 H Hgb 14.0 Hct 43.5 MCV 82.8 MCH 26.6 L MCHC 32.1 L RDW 15.0 H Plt Count 348 MPV 8.7 Neut % (Auto) 89.2 H Lymph % (Auto) 4.7 L Howard % (Auto) 5.9 Eos % (Auto) 0.0 Baso % (Auto) 0.2 Neut # 15.8 H Lymph # 0.8 L Howard # 1.0 H Eos # 0.0 Baso # 0.0 Neutrophils % (Manual) 86 H Band Neutrophils % 2 Lymphocytes % (Manual) 5 L Monocytes % (Manual) 7 Platelet Estimate Normal D-Dimer, Quantitative < 200 Sodium 137 Potassium 3.9 Chloride 92 L Carbon Dioxide 29 Anion Gap 20 BUN 35 H Creatinine 1.1 Est GFR ( Amer) 59 Est GFR (Non-Af Amer) 49 POC Glucose (mg/dL) 134 H Random Glucose 137 H Calcium 8.9 Magnesium 2.0 Total Bilirubin 0.3 AST 37 H ALT 23 Alkaline Phosphatase 56 Total Creatine Kinase 237 H CK-MB (Mass) 8.60 H Troponin I, Quant 0.0800 Total Protein 7.3 Albumin 4.2 Globulin 3.2 Albumin/Globulin Ratio 1.3 Theophylline 11.9 Attending/Attestation - Attestation I have personally seen and examined this patient.: Yes I have fully participated in the care of the patient.: Yes I have reviewed all pertinent clinical information: Yes Notes (Text): 02/20/17 18:28 patient admitted with copd exacerbation a few days back. Today with cp and a. fib with rvr, no response to cardizem, responds well to labetalol. d/c lasix, bun/cr increasing. wbc count increased, but on steroids, moxifloxacin on hold, no fever, will follow wbc count in am.
[2017-02-20] MEDS ORDERED: Labetalol 25mg/5ml Syringe IVP STA (17:04)
[2017-02-20] MEDS ORDERED: Metoprolol Succinate 12.5 mg XL PO SCH (17:30)
[2017-02-20 18:14] LABS: NEUTROPHIL 86 % (50-75); TOTAL CELLS COUNTED 100
--- NOTE | 2017-02-20 18:39 | CP.PCM.PN ---
Subjective - Date & Time of Evaluation Date of Evaluation: 02/20/17 Time of Evaluation: 01:40 - Subjective Subjective: clinically same Objective - Vital Signs/Intake and Output Vital Signs (last 24 hours): Temp Pulse Resp BP Pulse Ox 97.5 F L 96 H 17 89/59 L 99 02/20/17 17:00 02/20/17 18:00 02/20/17 18:00 02/20/17 17:51 02/20/17 18:00 Intake and Output: 02/20/17 02/20/17 06:59 18:59 Intake Total 15 Output Total 400 0 Balance -400 15 - Medications Medications: Current Medications Acetaminophen (Tylenol 325mg Tab) 650 mg PO Q6 PRN PRN Reason: Fever >100.4 F Last Admin: 02/20/17 12:18 Dose: 650 mg Albuterol/Ipratropium (Duoneb 3 Mg/0.5 Mg (3 Ml) Ud) 3 ml INH RQ6 [facility] [place] Last Admin: 02/20/17 13:35 Dose: 3 ml Enoxaparin Sodium (Lovenox) 40 mg SC DAILY [facility] [place] Last Admin: 02/20/17 11:04 Dose: 40 mg Moxifloxacin HCl (Avelox Iv 400mg/250ml Ns) 250 mls @ 167 mls/hr IVPB Q24H [facility] [place] Last Admin: 02/20/17 13:43 Dose: 167 mls/hr Losartan Potassium (Cozaar) 50 mg PO DAILY [facility] [place] Last Admin: 02/20/17 11:03 Dose: 50 mg Methylprednisolone (Solu-Medrol) 40 mg IVP Q8 [facility] [place] Last Admin: 02/20/17 13:46 Dose: 40 mg Metoprolol Tartrate (Lopressor) 5 mg IVP Q6H [facility] [place] Montelukast Sodium (Singulair) 10 mg PO HS [facility] [place] Last Admin: 02/19/17 21:25 Dose: 10 mg Oseltamivir Phosphate (Tamiflu Cap) 75 mg PO BID [facility] [place] Stop: 02/24/17 09:03 Last Admin: 02/20/17 17:56 Dose: 75 mg Pantoprazole Sodium (Protonix Ec Tab) 40 mg PO DAILY [facility] [place] Last Admin: 02/20/17 11:03 Dose: 40 mg Fluticasone/Salmeterol (Advair Diskus 250/50) 1 puff INH RQ12 [facility] [place] Last Admin: 02/20/17 07:21 Dose: 1 puff Theophylline (Ahsan-24) 200 mg PO DAILY [facility] [place] Last Admin: 02/20/17 11:03 Dose: 200 mg Tiotropium [place] (Spiriva) 18 mcg IH RQD [facility] [place] Last Admin: 02/20/17 07:20 Dose: 18 mcg - Labs Labs: 02/20/17 16:14 02/20/17 16:14 PT 11.7 SECONDS (9.7-12.2) 02/18/17 12:13 INR 1.0 02/18/17 12:13 APTT 38 SECONDS (21-34) H 02/18/17 12:13 - Constitutional Appears: Well - Head Exam Head Exam: ATRAUMATIC, NORMAL INSPECTION, NORMOCEPHALIC - Eye Exam Eye Exam: EOMI, Normal appearance, PERRL Pupil Exam: NORMAL ACCOMODATION, PERRL - ENT Exam ENT Exam: Mucous Membranes Moist, Normal Exam - Neck Exam Neck Exam: Full ROM, Normal Inspection. absent: Lymphadenopathy - Respiratory Exam Respiratory Exam: Decreased Breath Sounds - Cardiovascular Exam Cardiovascular Exam: REGULAR RHYTHM, +S1, +S2 - GI/Abdominal Exam GI & Abdominal Exam: Soft, Diminished Bowel Sounds - Rectal Exam Rectal Exam: Deferred Assessment and Plan (1) Atrial fibrillation with RVR Status: Acute (2) CHF (congestive heart failure) Status: Acute (3) HTN (hypertension) Status: Acute (4) Hyponatremia Status: Acute (5) Influenza B Status: Acute (6) Prophylactic measure Status: Acute (7) Respiratory failure Status: Acute (8) COPD (chronic obstructive pulmonary disease) Status: Chronic (9) Chronic sinusitis with recurrent bronchitis Status: Chronic (10) Hx of lymphoma Status: Chronic (11) 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
[2017-02-20] MEDS: Metoprolol 1 mg/ml Inj IVP SCH (22:26)
[2017-02-21] MEDS: Albuterol-Ipratrop 3 mg / 0.5 (3 ml) UD INH SCH ×4 (01:06→19:33)
[2017-02-21] MEDS: MethylPREDNISolone 40 mg Vial IVP SCH ×3 (06:21→22:47)
--- NOTE | 2017-02-21 06:41 | CP.CCUPN ---
<CalCalebstephani - Last Filed: 02/21/17 13:58> CCU Subjective - Physician Review Subjective (Free Text): 02/21/17 07:11 Pt seen and examined in no acute distress. Patient states that she experienced some neck discomfort overnight associated with ROM which may be attributed to sleep positioning. Pt also complains of a cough with little production of sputum. Otherwise, patient states that her flu associated symptoms have improved. She denies chest pain, palpitations, headaches, visual changes, dyspnea, paresthesias, nausea, vomiting, or diarrhea. CCU Objective - Vital Signs / Intake & Output Intake and Output (Last 8hrs): Intake & Output 02/20/17 02/20/17 02/21/17 14:59 22:59 06:59 Intake Total 165 0 Output Total 450 Balance -285 0 Weight 143 lb Intake: Intake, IV Amount 15 0 Left Hand 15 0 Left Antecubital 0 0 Oral 150 Output: Urine 450 Urine, Voided 450 Other: # Bowel Movements 0 - Physical Exam Head: Positive for: Atraumatic, Normocephalic Pupils: Positive for: PERRL Extroacular Muscles: Positive for: EOMI Conjunctiva: Positive for: Normal Mouth: Positive for: Moist Mucous Membranes Respiratory/Chest: Positive for: Wheezes Cardiovascular: Positive for: Normal S1, S2 Abdomen: Positive for: Normal Bowel Sounds. Negative for: Tenderness, Peritoneal Signs Upper Extremity: Positive for: Normal ROM Lower Extremity: Positive for: Normal ROM Neurological: Positive for: CN II-XII Intact, Speech Normal Skin: Positive for: Warm, Dry Psychiatric: Positive for: Alert, Oriented x 3, Normal Insight, Normal Concentration - Medications Active Medications: Active Medications Generic Name Dose Route Start Last Admin Trade Name Freq PRN Reason Stop Dose Admin Acetaminophen 650 mg 02/20/17 11:18 02/21/17 00:34 Tylenol 325mg Tab PO 650 mg Q6 PRN Administration Fever >100.4 F Albuterol/Ipratropium 3 ml 02/18/17 14:56 02/21/17 01:06 Duoneb 3 Mg/0.5 Mg (3 Ml) Ud INH 3 ml RQ6 KIM Administration Enoxaparin Sodium 40 mg 02/19/17 10:00 02/20/17 11:04 Lovenox SC 40 mg DAILY KIM Administration Moxifloxacin HCl 250 mls @ 167 mls/hr 02/18/17 14:30 02/20/17 13:43 Avelox Iv 400mg/250ml Ns IVPB 167 mls/hr Q24H KIM Administration Losartan Potassium 50 mg 02/19/17 10:00 02/20/17 11:03 Cozaar PO 50 mg DAILY KIM Administration Methylprednisolone 40 mg 02/19/17 22:00 02/21/17 06:21 Solu-Medrol IVP 40 mg Q8 KIM Administration Metoprolol Tartrate 5 mg 02/20/17 23:00 02/20/17 22:26 Lopressor IVP Not Given Q6H KIM Montelukast Sodium 10 mg 02/18/17 22:00 02/20/17 22:29 Singulair PO 10 mg HS KIM Administration Oseltamivir Phosphate 75 mg 02/19/17 10:00 02/20/17 17:56 Tamiflu Cap PO 02/24/17 09:03 75 mg BID KIM Administration Pantoprazole Sodium 40 mg 02/19/17 10:00 02/20/17 11:03 Protonix Ec Tab PO 40 mg DAILY KIM Administration Fluticasone/Salmeterol 1 puff 02/18/17 20:00 02/20/17 07:21 Advair Diskus 250/50 INH 1 puff RQ12 KIM Administration Theophylline 200 mg 02/19/17 10:00 02/20/17 11:03 Ahsan-24 PO 200 mg DAILY KIM Administration Tiotropium [place] 18 mcg 02/19/17 08:15 02/20/17 07:20 Spiriva IH 18 mcg RQD KIM Administration - Patient Studies Lab Studies: Lab Studies 02/20/17 02/20/17 02/20/17 Range/Units 18:01 16:14 16:02 WBC 17.8 H D (4.8-10.8) K/uL RBC 5.26 H (3.80-5.20) Mil/uL Hgb 14.0 (11.0-16.0) g/dL Hct 43.5 (34.0-47.0) % MCV 82.8 (81.0-99.0) fL MCH 26.6 L (27.0-31.0) pg MCHC 32.1 L (33.0-37.0) g/dL RDW 15.0 H (11.5-14.5) % Plt Count 348 (130-400) K/uL MPV 8.7 (7.2-11.7) fL Neut % (Auto) 89.2 H (50.0-75.0) % Lymph % (Auto) 4.7 L (20.0-40.0) % [place] % (Auto) 5.9 (0.0-10.0) % Eos % (Auto) 0.0 (0.0-4.0) % Baso % (Auto) 0.2 (0.0-2.0) % Neut # 15.8 H (1.8-7.0) K/uL Lymph # 0.8 L (1.0-4.3) K/uL [place] # 1.0 H (0.0-0.8) K/uL Eos # 0.0 (0.0-0.7) K/uL Baso # 0.0 (0.0-0.2) K/uL Neutrophils % (Manual) 86 H (50-75) % Band Neutrophils % 2 (0-2) % Lymphocytes % (Manual) 5 L (20-40) % Monocytes % (Manual) 7 (0-10) % Platelet Estimate Normal (NORMAL) D-Dimer, Quantitative < 200 (0-243) ng/mlDDU Sodium 137 (132-148) mmol/L Potassium 3.9 (3.6-5.2) mmol/L Chloride 92 L (98-107) mmol/L Carbon Dioxide 29 (22-30) mmol/L Anion Gap 20 (10-20) BUN 35 H (7-17) mg/dL Creatinine 1.1 (0.7-1.2) MG/DL Est GFR ( Amer) 59 Est GFR (Non-Af Amer) 49 POC Glucose (mg/dL) 134 H (65-110) mg/dL Random Glucose 137 H (65-105) mg/dL Calcium 8.9 (8.6-10.4) mg/dl Magnesium 2.0 (1.6-2.3) mg/dL Total Bilirubin 0.3 (0.2-1.3) mg/dL AST 37 H (14-36) U/L ALT 23 (9-52) U/L Alkaline Phosphatase 56 (38-126) U/L Total Creatine Kinase 237 H (30-135) U/L CK-MB (Mass) 8.60 H (0.0-3.38) ng/mL Troponin I, Quant 0.0800 (0.00-0.120) ng/mL Total Protein 7.3 (6.3-8.3) g/dL Albumin 4.2 (3.5-5.0) g/dL Globulin 3.2 (2.2-3.9) gm/dL Albumin/Globulin Ratio 1.3 (1.0-2.1) Theophylline 11.9 (10-20) ug/ml Laboratory Results - last 24 hr 02/20/17 02/20/17 02/20/17 16:02 16:14 18:01 WBC 17.8 H D RBC 5.26 H Hgb 14.0 Hct 43.5 MCV 82.8 MCH 26.6 L MCHC 32.1 L RDW 15.0 H Plt Count 348 MPV 8.7 Neut % (Auto) 89.2 H Lymph % (Auto) 4.7 L [place] % (Auto) 5.9 Eos % (Auto) 0.0 Baso % (Auto) 0.2 Neut # 15.8 H Lymph # 0.8 L [place] # 1.0 H Eos # 0.0 Baso # 0.0 Neutrophils % (Manual) 86 H Band Neutrophils % 2 Lymphocytes % (Manual) 5 L Monocytes % (Manual) 7 Platelet Estimate Normal D-Dimer, Quantitative < 200 Sodium 137 Potassium 3.9 Chloride 92 L Carbon Dioxide 29 Anion Gap 20 BUN 35 H Creatinine 1.1 Est GFR ( Amer) 59 Est GFR (Non-Af Amer) 49 POC Glucose (mg/dL) 134 H Random Glucose 137 H Calcium 8.9 Magnesium 2.0 Total Bilirubin 0.3 AST 37 H ALT 23 Alkaline Phosphatase 56 Total Creatine Kinase 237 H CK-MB (Mass) 8.60 H Troponin I, Quant 0.0800 Total Protein 7.3 Albumin 4.2 Globulin 3.2 Albumin/Globulin Ratio 1.3 Theophylline 11.9 EKG/Cardiology Studies: Cardiology / EKG Studies 02/20/17 16:04 ELECTROCARDIOGRAM Stat Comment: Mode Of Transportation: Reason For Exam: chest pain and rapid heart rate Isolation: Droplet Review of Systems - Review of Systems Review of Systems: see subjective Critical Care Progress Note - Nutrition Nutrition: Nutrition Category Date Time Status Heart Healthy Diet [DIET] Diets 02/20/17 Dinner Active Assessment/Plan - Assessment and Plan (Free Text) Assessment: 71 year old female with PMHx signficant for HTN, COPD and lymphoma s/p chemo presents for critical care monitoring following an [employer] on the floor for new onset tachycardia (HR 140-150's) initially unresponsive to cardizem drip. Once transferred, patient responsive to IV labetalol. Will continue to monitor. Plan: Neuro: aaox3 in no acute distress Cardio: Hx of HTN Cozaar 50 mg PO daily, Lopressor 25 mg PO Q12 ASA D-Dimer negative, Troponin III elevated. Follow up 12:30pm repeat to trend. CK not correlating with increase Heart Healthy diet Cont to monitor EKG 02/18: Sinus tach with premature supraventricular complexes; ST-T wave abnormalities with considerations for inferolateral ischemia EKG 02/20: Atrial fibrillation w/ RVR ; ST and T wave abnormalities with considerations for inferolateral ischemia LACEY 1-2 (negative but higher end range of normal) -Elevated troponin III ( 0.1210) - ordered EKG.- sinus rhythm with some PACs noted Pulm: On NRB- Saturation 100% Influenza Positive:Droplet, Contact precautions, Tamiflu PO BID (Started 02/19) Hx of COPD- Cont management per Pulm: Billie Sheffield Singulair GI: Heart Healthy diet Endo: HgbA1c 6.1 Maintain euglycemia Nephro: Continue to monitor BUN/Cr Monitor Ins and outs ID: Influenza positive- See aforementioned (under pulm) WBC - elevated Droplet, Contact precautions, Tamiflu PO BID (Started 02/19) MSK: PT/OT OOB to chair Prophylaxis: Lovenox 40 SC daily PPI 40mg PO daily Pending labs and continued hemodynamic stability- Patient may be transferred to a telemetry unit <Karuna Falcon - Last Filed: 02/21/17 19:57> CCU Objective - Vital Signs / Intake & Output Vital Signs (Last 4 hours): Vital Signs Temp Pulse Resp BP Pulse Ox 02/21/17 19:11 72 20 164/73 H 98 02/21/17 19:00 75 17 100 02/21/17 18:12 75 20 127/111 H 96 02/21/17 18:01 73 20 97 02/21/17 17:11 72 12 178/84 H 98 02/21/17 17:00 74 19 100 02/21/17 16:11 70 19 154/61 H 100 02/21/17 16:00 98.1 F 69 21 100 Intake and Output (Last 8hrs): Intake & Output 02/21/17 02/21/17 02/21/17 06:59 14:59 22:59 Intake Total 0 440 300 Output Total 600 400 550 Balance -600 40 -250 Intake: Intake, IV Amount 0 0 0 Left Hand 0 0 Left Antecubital 0 0 0 Oral 440 300 Output: Urine 600 400 550 Urine, Voided 600 400 550 Emesis 0 Other: # Voids Urine, Voided 2 - Medications Active Medications: Active Medications Generic Name Dose Route Start Last Admin Trade Name Freq PRN Reason Stop Dose Admin Acetaminophen 650 mg 02/20/17 11:18 02/21/17 00:34 Tylenol 325mg Tab PO 650 mg Q6 PRN Administration Fever >100.4 F Albuterol/Ipratropium 3 ml 02/18/17 14:56 02/21/17 19:33 Duoneb 3 Mg/0.5 Mg (3 Ml) Ud INH 3 ml RQ6 KIM Administration Aspirin 81 mg 02/21/17 12:00 02/21/17 12:10 Ecotrin PO 81 mg DAILY KIM Administration Enoxaparin Sodium 40 mg 02/19/17 10:00 02/21/17 09:54 Lovenox SC 40 mg DAILY KIM Administration Moxifloxacin HCl 250 mls @ 167 mls/hr 02/18/17 14:30 02/20/17 13:43 Avelox Iv 400mg/250ml Ns IVPB 167 mls/hr Q24H KIM Administration Losartan Potassium 50 mg 02/21/17 11:45 02/21/17 12:41 Cozaar PO 50 mg DAILY KIM Administration Methylprednisolone 40 mg 02/19/17 22:00 02/21/17 15:00 Solu-Medrol IVP 40 mg Q8 KIM Administration Metoprolol Tartrate 25 mg 02/21/17 11:45 02/21/17 15:00 Lopressor PO 25 mg Q12H KIM Administration Montelukast Sodium 10 mg 02/18/17 22:00 02/20/17 22:29 Singulair PO 10 mg HS KIM Administration Oseltamivir Phosphate 75 mg 02/19/17 10:00 02/21/17 18:11 Tamiflu Cap PO 02/24/17 09:03 75 mg BID KIM Administration Pantoprazole Sodium 40 mg 02/19/17 10:00 02/21/17 09:54 Protonix Ec Tab PO 40 mg DAILY KIM Administration Fluticasone/Salmeterol 1 puff 02/18/17 20:00 02/21/17 19:36 Advair Diskus 250/50 INH 1 puff RQ12 KIM Administration Theophylline 200 mg 02/19/17 10:00 02/20/17 11:03 Ahsan-24 PO 200 mg DAILY KIM Administration Tiotropium [place] 18 mcg 02/19/17 08:15 02/21/17 07:59 Spiriva IH 18 mcg RQD KIM Administration - Patient Studies Lab Studies: Microbiology Studies 02/20/17 17:06 MRSA Culture (Admit) - Final Naris MRSA NOT DETECTED Lab Studies 02/21/17 02/21/17 02/21/17 Range/Units 14:15 06:37 06:29 WBC 13.6 H (4.8-10.8) K/uL RBC 5.35 H (3.80-5.20) Mil/uL Hgb 14.2 (11.0-16.0) g/dL Hct 44.5 (34.0-47.0) % MCV 83.1 (81.0-99.0) fL MCH 26.6 L (27.0-31.0) pg MCHC 32.0 L (33.0-37.0) g/dL RDW 14.8 H (11.5-14.5) % Plt Count 284 (130-400) K/uL MPV 8.8 (7.2-11.7) fL Neut % (Auto) 88.7 H (50.0-75.0) % Lymph % (Auto) 6.5 L (20.0-40.0) % [place] % (Auto) 4.6 (0.0-10.0) % Eos % (Auto) 0.0 (0.0-4.0) % Baso % (Auto) 0.2 (0.0-2.0) % Neut # 12.1 H (1.8-7.0) K/uL Lymph # 0.9 L (1.0-4.3) K/uL [place] # 0.6 (0.0-0.8) K/uL Eos # 0.0 (0.0-0.7) K/uL Baso # 0.0 (0.0-0.2) K/uL Neutrophils % (Manual) 94 H (50-75) % Band Neutrophils % 1 (0-2) % Lymphocytes % (Manual) 3 L (20-40) % Monocytes % (Manual) 2 (0-10) % Platelet Estimate Normal (NORMAL) RBC Morphology Normal Sodium 140 (132-148) mmol/L Potassium 4.2 (3.6-5.2) mmol/L Chloride 93 L (98-107) mmol/L Carbon Dioxide 31 H (22-30) mmol/L Anion Gap 20 (10-20) BUN 37 H (7-17) mg/dL Creatinine 1.0 (0.7-1.2) MG/DL Est GFR ( Amer) > 60 Est GFR (Non-Af Amer) 54 Random Glucose 136 H (65-105) mg/dL Hemoglobin A1c 6.1 (4.2-6.5) % Calcium 8.9 (8.6-10.4) mg/dl Phosphorus 4.4 (2.5-4.5) mg/dL Magnesium 2.3 (1.6-2.3) mg/dL Total Bilirubin 0.4 (0.2-1.3) mg/dL AST 38 H (14-36) U/L ALT 27 (9-52) U/L Alkaline Phosphatase 48 (38-126) U/L Total Creatine Kinase 120 147 H (30-135) U/L CK-MB (Mass) 7.34 H 8.66 H (0.0-3.38) ng/mL Troponin I, Quant 0.0950 0.1210 H* (0.00-0.120) ng/mL Total Protein 7.0 (6.3-8.3) g/dL Albumin 3.9 (3.5-5.0) g/dL Globulin 3.0 (2.2-3.9) gm/dL Albumin/Globulin Ratio 1.3 (1.0-2.1) Laboratory Results - last 24 hr 02/21/17 02/21/1702/21/17 06:29 06:37 14:15 WBC 13.6 H RBC 5.35 H Hgb 14.2 Hct 44.5 MCV 83.1 MCH 26.6 L MCHC 32.0 L RDW 14.8 H Plt Count 284 MPV 8.8 Neut % (Auto) 88.7 H Lymph % (Auto) 6.5 L [place] % (Auto) 4.6 Eos % (Auto) 0.0 Baso % (Auto) 0.2 Neut # 12.1 H Lymph # 0.9 L [place] # 0.6 Eos # 0.0 Baso # 0.0 Neutrophils % (Manual) 94 H Band Neutrophils % 1 Lymphocytes % (Manual) 3 L Monocytes % (Manual) 2 Platelet Estimate Normal RBC Morphology Normal Sodium 140 Potassium 4.2 Chloride 93 L Carbon Dioxide 31 H Anion Gap 20 BUN 37 H Creatinine 1.0 Est GFR ( Amer) > 60 Est GFR (Non-Af Amer) 54 Random Glucose 136 H Hemoglobin A1c 6.1 Calcium 8.9 Phosphorus 4.4 Magnesium 2.3 Total Bilirubin 0.4 AST 38 H ALT 27 Alkaline Phosphatase 48 Total Creatine Kinase 147 H 120 CK-MB (Mass) 8.66 H 7.34 H Troponin I, Quant 0.1210 H* 0.0950 Total Protein 7.0 Albumin 3.9 Globulin 3.0 Albumin/Globulin Ratio 1.3 EKG/Cardiology Studies: Cardiology / EKG Studies 02/21/17 08:10 EKG [ELECTROCARDIOGRAM] Stat Comment: Mode Of Transportation: Reason For Exam: rule out MO Isolation: Droplet 02/21/17 12:30 EKG [ELECTROCARDIOGRAM] Routine Comment: Mode Of Transportation: Reason For Exam: rule out MO Isolation: Droplet Critical Care Progress Note - Nutrition Nutrition: Nutrition Category Date Time Status Heart Healthy Diet [DIET] Diets 02/20/17 Dinner Active Attending/Attestation - Attestation I have personally seen and examined this patient.: Yes I have fully participated in the care of the patient.: Yes I have reviewed all pertinent clinical information: Yes Notes (Text): 02/21/17 19:54 Patient converted back to sinus rhythm at midnight, bp now elevated. Start metroprolol po. troponins elevated, 3rd set wnl, ekg no st-t wave changes. troponins most likely positive to positive enzymes.
[2017-02-21 06:43] LABS: BASO % 0.2 % (0.0-2.0); HEMATOCRIT 44.5 % (34.0-47.0); LYMPH # 0.9 K/uL (1.0-4.3); LYMPH % 6.5 % (20.0-40.0); MEAN CELL VOLUME 83.1 fL (81.0-99.0); MEAN CORPUSCULAR HEMOGLOBIN 26.6 pg (27.0-31.0); MEAN PLATELET VOLUME 8.8 fL (7.2-11.7); MONO # 0.6 K/uL (0.0-0.8); MONO % 4.6 % (0.0-10.0); PLATELET COUNT 284 K/uL (130-400); RED CELL DISTRIBUTION WIDTH 14.8 % (11.5-14.5); WHITE BLOOD COUNT 13.6 K/uL (4.8-10.8)
[2017-02-21 06:50] LABS: CHLORIDE 93 mmol/L (98-107)
[2017-02-21 06:51] LABS: POTASSIUM 4.2 mmol/L (3.6-5.2); SODIUM 140 mmol/L (132-148)
[2017-02-21 06:53] LABS: ALB/GLOB RATIO 1.3 (1.0-2.1); ALKALINE PHOSPHATASE 48 U/L (38-126); AST/SGOT 38 U/L (14-36); BILIRUBIN,TOTAL 0.4 mg/dL (0.2-1.3); BLOOD UREA NITROGEN 37 mg/dL (7-17); CARBON DIOXIDE 31 mmol/L (22-30); GFR AFRICAN-AMERICAN > 60
[2017-02-21 06:54] LABS: ALT/SGPT 27 U/L (9-52); CALCIUM 8.9 mg/dl (8.6-10.4); GLUCOSE,RANDOM 136 mg/dL (65-105); MAGNESIUM 2.3 mg/dL (1.6-2.3); PHOSPHOROUS 4.4 mg/dL (2.5-4.5)
[2017-02-21] MEDS: Metoprolol 1 mg/ml Inj IVP SCH (07:03)
[2017-02-21] MEDS: Tiotropium 18 mcg Cap For Inhalation IH SCH (07:59)
[2017-02-21] MEDS: Fluticasone-Salmeterol 250-50mcg Diskus INH SCH ×2 (07:59→19:36)
[2017-02-21 08:25] LABS: NEUTROPHIL 94 % (50-75); TOTAL CELLS COUNTED 100
[2017-02-21] MEDS: Pantoprazole 40 mg EC Tab PO SCH (09:54)
[2017-02-21] MEDS: Enoxaparin 40 mg Syringe SC SCH (09:54)
--- NOTE | 2017-02-21 12:32 | CP.PCM.PN ---
Subjective - Date & Time of Evaluation Date of Evaluation: 02/21/17 Time of Evaluation: 02:40 - Subjective Subjective: clinically same Objective - Vital Signs/Intake and Output Vital Signs (last 24 hours): Temp Pulse Resp BP Pulse Ox 98 F 66 18 183/90 H 100 02/21/17 12:00 02/21/17 12:11 02/21/17 12:11 02/21/17 12:11 02/21/17 12:11 Intake and Output: 02/21/17 02/21/17 06:59 18:59 Intake Total 150 280 Output Total 1050 400 Balance -900 -120 - Medications Medications: Current Medications Acetaminophen (Tylenol 325mg Tab) 650 mg PO Q6 PRN PRN Reason: Fever >100.4 F Last Admin: 02/21/17 00:34 Dose: 650 mg Albuterol/Ipratropium (Duoneb 3 Mg/0.5 Mg (3 Ml) Ud) 3 ml INH RQ6 [facility] Last Admin: 02/21/17 07:56 Dose: 3 ml Aspirin (Ecotrin) 81 mg PO DAILY [facility] Last Admin: 02/21/17 12:10 Dose: 81 mg Enoxaparin Sodium (Lovenox) 40 mg SC DAILY [facility] Last Admin: 02/21/17 09:54 Dose: 40 mg Moxifloxacin HCl (Avelox Iv 400mg/250ml Ns) 250 mls @ 167 mls/hr IVPB Q24H [facility] Last Admin: 02/20/17 13:43 Dose: 167 mls/hr Losartan Potassium (Cozaar) 50 mg PO DAILY [facility] Methylprednisolone (Solu-Medrol) 40 mg IVP Q8 [facility] Last Admin: 02/21/17 06:21 Dose: 40 mg Metoprolol Tartrate (Lopressor) 25 mg PO Q12H [facility] Montelukast Sodium (Singulair) 10 mg PO HS [facility] Last Admin: 02/20/17 22:29 Dose: 10 mg Oseltamivir Phosphate (Tamiflu Cap) 75 mg PO BID [facility] Stop: 02/24/17 09:03 Last Admin: 02/21/17 09:54 Dose: 75 mg Pantoprazole Sodium (Protonix Ec Tab) 40 mg PO DAILY [facility] Last Admin: 02/21/17 09:54 Dose: 40 mg Fluticasone/Salmeterol (Advair Diskus 250/50) 1 puff INH RQ12 [facility] Last Admin: 02/21/17 07:59 Dose: 1 puff Theophylline (Ahsan-24) 200 mg PO DAILY [facility] Last Admin: 02/20/17 11:03 Dose: 200 mg Tiotropium [place] (Spiriva) 18 mcg IH RQD [facility] Last Admin: 02/21/17 07:59 Dose: 18 mcg - Labs Labs: 02/21/17 06:37 02/21/17 06:29 PT 11.7 SECONDS (9.7-12.2) 02/18/17 12:13 INR 1.0 02/18/17 12:13 APTT 38 SECONDS (21-34) H 02/18/17 12:13 - Constitutional Appears: Well - Head Exam Head Exam: ATRAUMATIC, NORMAL INSPECTION, NORMOCEPHALIC - Eye Exam Eye Exam: EOMI, Normal appearance, PERRL Pupil Exam: NORMAL ACCOMODATION, PERRL - ENT Exam ENT Exam: Mucous Membranes Moist, Normal Exam - Neck Exam Neck Exam: Full ROM, Normal Inspection. absent: Lymphadenopathy - Respiratory Exam Respiratory Exam: Decreased Breath Sounds - Cardiovascular Exam Cardiovascular Exam: REGULAR RHYTHM, +S1, +S2 - GI/Abdominal Exam GI & Abdominal Exam: Soft, Diminished Bowel Sounds - Rectal Exam Rectal Exam: Deferred Assessment and Plan (1) Atrial fibrillation with RVR Status: Acute (2) CHF (congestive heart failure) Status: Acute (3) HTN (hypertension) Status: Acute (4) Hyponatremia Status: Acute (5) Influenza B Status: Acute (6) Prophylactic measure Status: Acute (7) Respiratory failure Status: Acute (8) COPD (chronic obstructive pulmonary disease) Status: Chronic (9) Chronic sinusitis with recurrent bronchitis Status: Chronic (10) Hx of lymphoma Status: Chronic (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
--- NOTE | 2017-02-21 18:04 | CP.PCM.PN ---
Subjective - Date & Time of Evaluation Date of Evaluation: 02/21/17 Time of Evaluation: 18:02 - Subjective Subjective: s/p transfer to icu for AF with RVR no chest pain mild troponin elevation check echo cardio consult Objective - Vital Signs/Intake and Output Vital Signs (last 24 hours): Temp Pulse Resp BP Pulse Ox 98 F 66 18 149/63 100 02/21/17 12:00 02/21/17 12:11 02/21/17 12:11 02/21/17 15:00 02/21/17 12:11 Intake and Output: 02/21/17 02/21/17 06:59 18:59 Intake Total 150 440 Output Total 1050 400 Balance -900 40 - Medications Medications: Current Medications Acetaminophen (Tylenol 325mg Tab) 650 mg PO Q6 PRN PRN Reason: Fever >100.4 F Last Admin: 02/21/17 00:34 Dose: 650 mg Albuterol/Ipratropium (Duoneb 3 Mg/0.5 Mg (3 Ml) Ud) 3 ml INH RQ6 [facility] Last Admin: 02/21/17 13:34 Dose: 3 ml Aspirin (Ecotrin) 81 mg PO DAILY [facility] Last Admin: 02/21/17 12:10 Dose: 81 mg Enoxaparin Sodium (Lovenox) 40 mg SC DAILY [facility] Last Admin: 02/21/17 09:54 Dose: 40 mg Moxifloxacin HCl (Avelox Iv 400mg/250ml Ns) 250 mls @ 167 mls/hr IVPB Q24H [facility] Last Admin: 02/20/17 13:43 Dose: 167 mls/hr Losartan Potassium (Cozaar) 50 mg PO DAILY [facility] Last Admin: 02/21/17 12:41 Dose: 50 mg Methylprednisolone (Solu-Medrol) 40 mg IVP Q8 [facility] Last Admin: 02/21/17 15:00 Dose: 40 mg Metoprolol Tartrate (Lopressor) 25 mg PO Q12H [facility] Last Admin: 02/21/17 15:00 Dose: 25 mg Montelukast Sodium (Singulair) 10 mg PO HS [facility] Last Admin: 02/20/17 22:29 Dose: 10 mg Oseltamivir Phosphate (Tamiflu Cap) 75 mg PO BID [facility] Stop: 02/24/17 09:03 Last Admin: 02/21/17 09:54 Dose: 75 mg Pantoprazole Sodium (Protonix Ec Tab) 40 mg PO DAILY [facility] Last Admin: 02/21/17 09:54 Dose: 40 mg Fluticasone/Salmeterol (Advair Diskus 250/50) 1 puff INH RQ12 [facility] Last Admin: 02/21/17 07:59 Dose: 1 puff Theophylline (Ahsan-24) 200 mg PO DAILY [facility] Last Admin: 02/20/17 11:03 Dose: 200 mg Tiotropium [place] (Spiriva) 18 mcg IH RQD [facility] Last Admin: 02/21/17 07:59 Dose: 18 mcg - Labs Labs: 02/21/17 06:37 02/21/17 06:29 PT 11.7 SECONDS (9.7-12.2) 02/18/17 12:13 INR 1.0 02/18/17 12:13 APTT 38 SECONDS (21-34) H 02/18/17 12:13 - Constitutional Appears: No Acute Distress, Chronically Ill - Head Exam Head Exam: ATRAUMATIC, NORMOCEPHALIC - Eye Exam Eye Exam: Normal appearance - ENT Exam ENT Exam: Mucous Membranes Moist - Respiratory Exam Respiratory Exam: Decreased Breath Sounds - Cardiovascular Exam Cardiovascular Exam: Irregular Rhythm - GI/Abdominal Exam GI & Abdominal Exam: Normal Bowel Sounds - Rectal Exam Rectal Exam: Deferred - Neurological Exam Neurological Exam: Alert, Awake, Oriented x3 - Psychiatric Exam Psychiatric exam: Normal Affect, Normal Mood - Skin Skin Exam: Intact Assessment and Plan (1) COPD (chronic obstructive pulmonary disease) Status: Chronic (2) COPD with exacerbation Status: Resolved (3) Influenza B Status: Acute (4) Atrial fibrillation with RVR Status: Acute
--- NOTE | 2017-02-21 19:56 | CARD ---
APPROVED REPORT EKG Measurement Heart [id number] MD [id number] <Conclusion> Sinus tachycardia with premature supraventricular complexes ST & T wave abnormality, consider inferolateral ischemia Abnormal ECG
[2017-02-22] MEDS: Albuterol-Ipratrop 3 mg / 0.5 (3 ml) UD INH SCH ×4 (01:02→19:59)
[2017-02-22 06:30] LABS: BASO % 0.1 % (0.0-2.0); HEMATOCRIT 46.5 % (34.0-47.0); LYMPH # 0.7 K/uL (1.0-4.3); LYMPH % 7.3 % (20.0-40.0); MEAN CORPUSCULAR HEMOGLOBIN 26.9 pg (27.0-31.0); MEAN CORPUSCULAR HGB CONC 32.4 g/dL (33.0-37.0); MEAN PLATELET VOLUME 8.4 fL (7.2-11.7); MONO # 0.5 K/uL (0.0-0.8); MONO % 5.3 % (0.0-10.0); PLATELET COUNT 301 K/uL (130-400); RED CELL DISTRIBUTION WIDTH 14.7 % (11.5-14.5); WHITE BLOOD COUNT 9.8 K/uL (4.8-10.8)
[2017-02-22] MEDS: MethylPREDNISolone 40 mg Vial IVP SCH ×3 (06:30→21:37)
[2017-02-22 06:47] LABS: CHLORIDE 96 mmol/L (98-107); SODIUM 138 mmol/L (132-148)
[2017-02-22 06:48] LABS: POTASSIUM 4.6 mmol/L (3.6-5.2)
[2017-02-22 06:49] LABS: GFR AFRICAN-AMERICAN > 60
[2017-02-22 06:50] LABS: ALB/GLOB RATIO 1.1 (1.0-2.1); ALKALINE PHOSPHATASE 49 U/L (38-126); AST/SGOT 56 U/L (14-36); BILIRUBIN,TOTAL 0.5 mg/dL (0.2-1.3); BLOOD UREA NITROGEN 34 mg/dL (7-17); CARBON DIOXIDE 31 mmol/L (22-30); GLUCOSE,RANDOM 134 mg/dL (65-105); PHOSPHOROUS 4.2 mg/dL (2.5-4.5); TOTAL PROTEIN 6.9 g/dL (6.3-8.3)
[2017-02-22 06:51] LABS: ALT/SGPT 72 U/L (9-52); CALCIUM 8.8 mg/dl (8.6-10.4); MAGNESIUM 2.6 mg/dL (1.6-2.3)
[2017-02-22] MEDS: Tiotropium 18 mcg Cap For Inhalation IH SCH (07:43)
[2017-02-22] MEDS: Fluticasone-Salmeterol 250-50mcg Diskus INH SCH ×2 (07:44→20:02)
[2017-02-22 08:25] LABS: NEUTROPHIL 88 % (50-75); REACTIVE LYMPHOCYTES 1 % (0-0); TOTAL CELLS COUNTED 100
[2017-02-22 08:27] LABS: LARGE PLATELETS PRESENT
[2017-02-22] MEDS: Enoxaparin 40 mg Syringe SC SCH (09:37)
[2017-02-22] MEDS: Potassium Chloride 10 mEq ER Tab PO SCH (09:37)
[2017-02-22] MEDS: Pantoprazole 40 mg EC Tab PO SCH (09:38)
--- NOTE | 2017-02-22 10:16 | CP.PCM.PN ---
Subjective - Date & Time of Evaluation Date of Evaluation: 02/22/17 Time of Evaluation: 02:40 - Subjective Subjective: clinically same Objective - Vital Signs/Intake and Output Vital Signs (last 24 hours): Temp Pulse Resp BP Pulse Ox 97.5 F L 71 19 166/70 H 98 02/22/17 04:00 02/22/17 04:00 02/22/17 04:00 02/22/17 04:00 02/22/17 09:32 Intake and Output: 02/22/17 02/22/17 06:59 18:59 Intake Total 240 0 Output Total 550 Balance -310 0 - Medications Medications: Current Medications Acetaminophen (Tylenol 325mg Tab) 650 mg PO Q6 PRN PRN Reason: Fever >100.4 F Last Admin: 02/21/17 00:34 Dose: 650 mg Albuterol/Ipratropium (Duoneb 3 Mg/0.5 Mg (3 Ml) Ud) 3 ml INH RQ6 [facility] Last Admin: 02/22/17 07:44 Dose: 3 ml Aspirin (Ecotrin) 81 mg PO DAILY [facility] Last Admin: 02/22/17 09:38 Dose: 81 mg Enoxaparin Sodium (Lovenox) 40 mg SC DAILY [facility] Last Admin: 02/22/17 09:37 Dose: 40 mg Hydrochlorothiazide (Hydrodiuril) 25 mg PO DAILY [facility] Last Admin: 02/22/17 09:38 Dose: 25 mg Moxifloxacin HCl (Avelox Iv 400mg/250ml Ns) 250 mls @ 167 mls/hr IVPB Q24H [facility] Last Admin: 02/20/17 13:43 Dose: 167 mls/hr Losartan Potassium (Cozaar) 50 mg PO DAILY [facility] Last Admin: 02/22/17 07:16 Dose: 50 mg Methylprednisolone (Solu-Medrol) 40 mg IVP Q8 [facility] Last Admin: 02/22/17 06:30 Dose: 40 mg Metoprolol Tartrate (Lopressor) 25 mg PO Q12H [facility] Last Admin: 02/21/17 22:47 Dose: 25 mg Montelukast Sodium (Singulair) 10 mg PO HS [facility] Last Admin: 02/21/17 22:46 Dose: 10 mg Oseltamivir Phosphate (Tamiflu Cap) 75 mg PO BID [facility] Stop: 02/24/17 09:03 Last Admin: 02/22/17 09:38 Dose: 75 mg Pantoprazole Sodium (Protonix Ec Tab) 40 mg PO DAILY [facility] Last Admin: 02/22/17 09:38 Dose: 40 mg Potassium Chloride (Klor-Con 10) 10 meq PO BRK [facility] Last Admin: 02/22/17 09:37 Dose: 10 meq Fluticasone/Salmeterol (Advair Diskus 250/50) 1 puff INH RQ12 [facility] Last Admin: 02/22/17 07:44 Dose: 1 puff Theophylline (Ahsan-24) 200 mg PO DAILY [facility] Last Admin: 02/20/17 11:03 Dose: 200 mg Tiotropium [place] (Spiriva) 18 mcg IH RQD [facility] Last Admin: 02/22/17 07:43 Dose: 18 mcg - Labs Labs: 02/22/17 06:18 02/22/17 06:18 PT 11.7 SECONDS (9.7-12.2) 02/18/17 12:13 INR 1.0 02/18/17 12:13 APTT 38 SECONDS (21-34) H 02/18/17 12:13 - Constitutional Appears: Well - Head Exam Head Exam: ATRAUMATIC, NORMAL INSPECTION, NORMOCEPHALIC - Eye Exam Eye Exam: EOMI, Normal appearance, PERRL Pupil Exam: NORMAL ACCOMODATION, PERRL - ENT Exam ENT Exam: Mucous Membranes Moist, Normal Exam - Neck Exam Neck Exam: Full ROM, Normal Inspection. absent: Lymphadenopathy - Respiratory Exam Respiratory Exam: Decreased Breath Sounds - Cardiovascular Exam Cardiovascular Exam: REGULAR RHYTHM, +S1, +S2 - GI/Abdominal Exam GI & Abdominal Exam: Soft, Diminished Bowel Sounds - Rectal Exam Rectal Exam: Deferred Assessment and Plan (1) Atrial fibrillation with RVR Status: Acute (2) CHF (congestive heart failure) Status: Acute (3) HTN (hypertension) Status: Acute (4) Hyponatremia Status: Acute (5) Influenza B Status: Acute (6) Prophylactic measure Status: Acute (7) Respiratory failure Status: Acute (8) COPD (chronic obstructive pulmonary disease) Status: Chronic (9) Chronic sinusitis with recurrent bronchitis Status: Chronic (10) Hx of lymphoma Status: Chronic (11) 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
[2017-02-23] MEDS: Albuterol-Ipratrop 3 mg / 0.5 (3 ml) UD INH SCH ×4 (01:15→20:06)
[2017-02-23] MEDS: MethylPREDNISolone 40 mg Vial IVP SCH ×3 (05:59→21:27)
--- NOTE | 2017-02-23 06:27 | CARD ---
APPROVED REPORT EKG Measurement Heart [id number] <Conclusion> Sinus rhythm with premature supraventricular complexes Nonspecific ST and T wave abnormality Abnormal ECG
[2017-02-23] MEDS: Tiotropium 18 mcg Cap For Inhalation IH SCH (09:10)
[2017-02-23] MEDS: Fluticasone-Salmeterol 250-50mcg Diskus INH SCH ×3 (09:12→19:13)
[2017-02-23] MEDS: Pantoprazole 40 mg EC Tab PO SCH (09:28)
[2017-02-23] MEDS: Potassium Chloride 10 mEq ER Tab PO SCH (09:28)
[2017-02-23] MEDS: Enoxaparin 40 mg Syringe SC SCH (09:28)
--- NOTE | 2017-02-23 14:52 | CP.PCM.PN ---
Subjective - Date & Time of Evaluation Date of Evaluation: 02/23/17 Time of Evaluation: 01:20 - Subjective Subjective: clinically same Objective - Vital Signs/Intake and Output Vital Signs (last 24 hours): Temp Pulse Resp BP Pulse Ox 98.9 F 90 15 142/55 L 97 02/23/17 12:00 02/23/17 12:00 02/23/17 12:00 02/23/17 12:00 02/23/17 12:00 Intake and Output: 02/23/17 02/23/17 06:59 18:59 Intake Total 100 Balance 100 - Medications Medications: Current Medications Acetaminophen (Tylenol 325mg Tab) 650 mg PO Q6 PRN PRN Reason: Fever >100.4 F Last Admin: 02/21/17 00:34 Dose: 650 mg Albuterol/Ipratropium (Duoneb 3 Mg/0.5 Mg (3 Ml) Ud) 3 ml INH RQ6 [facility] Last Admin: 02/23/17 13:29 Dose: 3 ml Aspirin (Ecotrin) 81 mg PO DAILY [facility] Last Admin: 02/23/17 09:28 Dose: 81 mg Enoxaparin Sodium (Lovenox) 40 mg SC DAILY [facility] Last Admin: 02/23/17 09:28 Dose: 40 mg Hydrochlorothiazide (Hydrodiuril) 25 mg PO DAILY [facility] Last Admin: 02/23/17 09:28 Dose: 25 mg Moxifloxacin HCl (Avelox Iv 400mg/250ml Ns) 250 mls @ 167 mls/hr IVPB Q24H [facility] Last Admin: 02/20/17 13:43 Dose: 167 mls/hr Losartan Potassium (Cozaar) 50 mg PO DAILY [facility] Last Admin: 02/23/17 09:28 Dose: 50 mg Methylprednisolone (Solu-Medrol) 40 mg IVP Q8 [facility] Last Admin: 02/23/17 14:22 Dose: 40 mg Metoprolol Tartrate (Lopressor) 25 mg PO Q12H [facility] Last Admin: 02/23/17 11:42 Dose: 25 mg Montelukast Sodium (Singulair) 10 mg PO HS [facility] Last Admin: 02/22/17 21:37 Dose: 10 mg Oseltamivir Phosphate (Tamiflu Cap) 75 mg PO BID [facility] Stop: 02/24/17 09:03 Last Admin: 02/23/17 09:28 Dose: 75 mg Pantoprazole Sodium (Protonix Ec Tab) 40 mg PO DAILY [facility] Last Admin: 02/23/17 09:28 Dose: 40 mg Potassium Chloride (Klor-Con 10) 10 meq PO BRK [facility] Last Admin: 02/23/17 09:28 Dose: 10 meq Fluticasone/Salmeterol (Advair Diskus 250/50) 1 puff INH RQ12 [facility] Last Admin: 02/23/17 09:28 Dose: 1 puff Theophylline (Ahsan-24) 200 mg PO DAILY [facility] Last Admin: 02/20/17 11:03 Dose: 200 mg Tiotropium [place] (Spiriva) 18 mcg IH RQD [facility] Last Admin: 02/23/17 09:10 Dose: 18 mcg - Labs Labs: 02/22/17 06:18 02/22/17 06:18 PT 11.7 SECONDS (9.7-12.2) 02/18/17 12:13 INR 1.0 02/18/17 12:13 APTT 38 SECONDS (21-34) H 02/18/17 12:13 Assessment and Plan (1) Atrial fibrillation with RVR Status: Acute (2) CHF (congestive heart failure) Status: Acute (3) HTN (hypertension) Status: Acute (4) Hyponatremia Status: Acute (5) Influenza B Status: Acute (6) Prophylactic measure Status: Acute (7) Respiratory failure Status: Acute (8) COPD (chronic obstructive pulmonary disease) Status: Chronic (9) Chronic sinusitis with recurrent bronchitis Status: Chronic (10) Hx of lymphoma Status: Chronic (11) 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 diet
--- NOTE | 2017-02-23 18:55 | CARD ---
APPROVED REPORT EXAM: Two-dimensional and M-mode echocardiogram with Doppler and color Doppler. Other Information Quality : GoodRhythm : INDICATION Abnormal EKG/Arrhythmia Atrial Fibrillation Congestive Heart Failure COPD RISK FACTORS Hypertension Hyperlipidemia M-Mode DIMENSIONS RVDd0.62 (2.1-3.2cm)Left Atrium (MM)2.95 (2.5-4.0cm) IVSd1.18 (0.7-1.1cm)Aortic Root2.67 (2.2-3.7cm) LVDd4.82 (4.0-5.6cm)Aortic Cusp Exc.1.46 (1.5-2.0cm) PWd1.21 (0.7-1.1cm)FS (%) 33 % LVDs3.23 (2.0-3.8cm)LVEF (%)62 (>50%) Aortic Valve AoV Peak Fkrrrwog912.9cm/Yaima Peak GR.4mmHg Mitral Valve MV E Kmyljfis78.2cm/sMV A Nzkadber85.3cm/sE/A ratio1.1 TDI E/Lateral E'0.0E/Medial E'0.0 Tricuspid Valve TR Peak Prmlmwiw172ha/sTR Peak Gr.89jvXhPOLP25tdBg LEFT VENTRICLE The left ventricle is normal size. There is mild concentric left ventricular hypertrophy. Left ventricle systolic function is normal. The Ejection Fraction is 60-65%. There is normal LV segmental wall motion. The left ventricular diastolic function is normal. RIGHT VENTRICLE The right ventricle is normal size. There is normal right ventricular wall thickness. The right ventricular systolic function is normal. ATRIA The left atrium size is normal. The right atrium size is normal. The interatrial septum is intact with no evidence for an atrial septal defect. AORTIC VALVE The aortic valve is normal in structure. No aortic regurgitation is present. There is no aortic valvular stenosis. There is no aortic valvular vegetation. MITRAL VALVE The mitral valve is normal in structure. There is no evidence of mitral valve prolapse. There is no mitral valve stenosis. Mitral regurgitation is mild. TRICUSPID VALVE The tricuspid valve is normal in structure. There is mild tricuspid regurgitation. Right ventricular systolic pressure is estimated at less than 30 mmHg. There is no pulmonary hypertension. PULMONIC VALVE The pulmonic valve is not well visualized. There is mild pulmonic valvular regurgitation. GREAT VESSELS The aortic root is normal in size. PERICARDIAL EFFUSION There is no significant pericardial effusion. <Conclusion> Left ventricle systolic function is normal. The Ejection Fraction is 60-65%. Hypertensive heart disease. No aortic regurgitation is present. Mitral regurgitation is mild. There is mild tricuspid regurgitation. There is no pulmonary hypertension. There is mild pulmonic valvular regurgitation.
[2017-02-23] MEDS ORDERED: Albuterol-Ipratrop 3 mg / 0.5 (3 ml) UD INH ONE (22:02)
[2017-02-24] MEDS: Albuterol-Ipratrop 3 mg / 0.5 (3 ml) UD INH SCH ×4 (02:00→19:52)
[2017-02-24] MEDS: MethylPREDNISolone 40 mg Vial IVP SCH ×3 (06:18→21:00)
[2017-02-24] MEDS: Fluticasone-Salmeterol 250-50mcg Diskus INH SCH ×2 (08:08→19:51)
[2017-02-24] MEDS: Tiotropium 18 mcg Cap For Inhalation IH SCH (08:08)
[2017-02-24] MEDS: Potassium Chloride 10 mEq ER Tab PO SCH (08:32)
[2017-02-24] MEDS: Pantoprazole 40 mg EC Tab PO SCH (09:38)
[2017-02-24] MEDS: Enoxaparin 40 mg Syringe SC SCH (09:39)
--- NOTE | 2017-02-24 16:14 | CP.PCM.PN ---
Subjective - Date & Time of Evaluation Date of Evaluation: 02/24/17 Time of Evaluation: 11:00 - Subjective Subjective: Clinically same Objective - Vital Signs/Intake and Output Vital Signs (last 24 hours): Temp Pulse Resp BP Pulse Ox 97.4 F L 76 20 122/66 96 02/24/17 15:58 02/24/17 15:58 02/24/17 15:58 02/24/17 15:58 02/24/17 15:58 Intake and Output: 02/24/17 02/24/17 06:59 18:59 Output Total 250 Balance -250 - Medications Medications: Current Medications Acetaminophen (Tylenol 325mg Tab) 650 mg PO Q6 PRN PRN Reason: Fever >100.4 F Last Admin: 02/21/17 00:34 Dose: 650 mg Albuterol/Ipratropium (Duoneb 3 Mg/0.5 Mg (3 Ml) Ud) 3 ml INH RQ6 [facility] Last Admin: 02/24/17 13:19 Dose: 3 ml Aspirin (Ecotrin) 81 mg PO DAILY [facility] Last Admin: 02/24/17 09:38 Dose: 81 mg Enoxaparin Sodium (Lovenox) 40 mg SC DAILY [facility] Last Admin: 02/24/17 09:39 Dose: 40 mg Hydrochlorothiazide (Hydrodiuril) 25 mg PO DAILY [facility] Last Admin: 02/24/17 09:40 Dose: 25 mg Moxifloxacin HCl (Avelox Iv 400mg/250ml Ns) 250 mls @ 167 mls/hr IVPB Q24H [facility] Last Admin: 02/20/17 13:43 Dose: 167 mls/hr Losartan Potassium (Cozaar) 50 mg PO DAILY [facility] Last Admin: 02/24/17 09:39 Dose: 50 mg Methylprednisolone (Solu-Medrol) 40 mg IVP Q8 [facility] Last Admin: 02/24/17 14:23 Dose: 40 mg Metoprolol Tartrate (Lopressor) 25 mg PO Q12H [facility] Last Admin: 02/24/17 10:50 Dose: 25 mg Montelukast Sodium (Singulair) 10 mg PO HS [facility] Last Admin: 02/23/17 21:28 Dose: 10 mg Pantoprazole Sodium (Protonix Ec Tab) 40 mg PO DAILY [facility] Last Admin: 02/24/17 09:38 Dose: 40 mg Potassium Chloride (Klor-Con 10) 10 meq PO BRK [facility] Last Admin: 02/24/17 08:32 Dose: 10 meq Fluticasone/Salmeterol (Advair Diskus 250/50) 1 puff INH RQ12 [facility] Last Admin: 02/24/17 08:08 Dose: 1 puff Theophylline (Ahsan-24) 200 mg PO DAILY [facility] Last Admin: 02/20/17 11:03 Dose: 200 mg Tiotropium [place] (Spiriva) 18 mcg IH RQD [facility] Last Admin: 02/24/17 08:08 Dose: 18 mcg - Labs Labs: 02/22/17 06:18 02/22/17 06:18 PT 11.7 SECONDS (9.7-12.2) 02/18/17 12:13 INR 1.0 02/18/17 12:13 APTT 38 SECONDS (21-34) H 02/18/17 12:13 - Constitutional Appears: Well - Head Exam Head Exam: ATRAUMATIC, NORMAL INSPECTION, NORMOCEPHALIC - Eye Exam Eye Exam: EOMI, Normal appearance, PERRL Pupil Exam: NORMAL ACCOMODATION, PERRL - ENT Exam ENT Exam: Mucous Membranes Moist, Normal Exam - Neck Exam Neck Exam: Full ROM, Normal Inspection. absent: Lymphadenopathy - Respiratory Exam Respiratory Exam: Clear to Ausculation Bilateral, NORMAL BREATHING PATTERN - Cardiovascular Exam Cardiovascular Exam: REGULAR RHYTHM, +S1, +S2. absent: Murmur - GI/Abdominal Exam GI & Abdominal Exam: Soft, Normal Bowel Sounds. 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
--- NOTE | 2017-02-24 17:41 | VASCLAB ---
PROCEDURE: Ultrasonography renal arterial evaluation HISTORY: Renal artery stenosis COMPARISON: None available. TECHNIQUE: Real-time ultrasonography evaluation of the renal arteries were performed. Comparison is made to the aorta. Report prepared by LOPEZ Clark FINDINGS: AORTA: Patent. Peak systolic velocity 81 centimeters/second RIGHT RENAL ARTERY: Renal artery to aorta ratio: n/a * Proximal segment: Not imaged * Mid segment: Not imaged * Distal segment: Not imaged Other findings: Right Kidney measures approximately 10.11 centimeters. LEFT RENAL ARTERY: Renal artery to aorta ratio: 1.0 * Proximal segment: Not imaged * Mid segment: Not imaged * Distal segment: Partially image with peak systolic velocity 80.4 cm/sec Other findings: Left Kidney measures approximately 10.45 centimeters. IMPRESSION: 1. Limited evaluation. 2. Unable to visualize the right renal artery. 3. Limited view of the left renal artery. Normal velocity at the left distal renal artery. 4. If clinically indicated, CTA or MRA of the renal arteries may be considered.
[2017-02-25] MEDS: Albuterol-Ipratrop 3 mg / 0.5 (3 ml) UD INH SCH ×4 (01:53→19:06)
[2017-02-25] MEDS: MethylPREDNISolone 40 mg Vial IVP SCH ×3 (06:04→22:01)
[2017-02-25] MEDS: Tiotropium 18 mcg Cap For Inhalation IH SCH (07:50)
[2017-02-25] MEDS: Fluticasone-Salmeterol 250-50mcg Diskus INH SCH ×2 (07:51→19:06)
[2017-02-25] MEDS: Potassium Chloride 10 mEq ER Tab PO SCH (09:30)
[2017-02-25] MEDS: Pantoprazole 40 mg EC Tab PO SCH (10:09)
[2017-02-25] MEDS: Enoxaparin 40 mg Syringe SC SCH (10:12)
--- NOTE | 2017-02-25 18:17 | CP.PCM.PN ---
Subjective - Date & Time of Evaluation Date of Evaluation: 02/25/17 Time of Evaluation: 10:40 - Subjective Subjective: clinically same Objective - Vital Signs/Intake and Output Vital Signs (last 24 hours): Temp Pulse Resp BP Pulse Ox 98 F 74 20 155/90 H 96 02/25/17 15:00 02/25/17 16:00 02/25/17 15:00 02/25/17 15:00 02/25/17 15:00 Intake and Output: 02/25/17 02/25/17 06:59 18:59 Intake Total 680 Balance 680 - Medications Medications: Current Medications Acetaminophen (Tylenol 325mg Tab) 650 mg PO Q6 PRN PRN Reason: Fever >100.4 F Last Admin: 02/21/17 00:34 Dose: 650 mg Albuterol/Ipratropium (Duoneb 3 Mg/0.5 Mg (3 Ml) Ud) 3 ml INH RQ6 [facility] Last Admin: 02/25/17 14:27 Dose: Not Given Aspirin (Ecotrin) 81 mg PO DAILY [facility] Last Admin: 02/25/17 10:10 Dose: 81 mg Enoxaparin Sodium (Lovenox) 40 mg SC DAILY [facility] Last Admin: 02/25/17 10:12 Dose: 40 mg Hydrochlorothiazide (Hydrodiuril) 25 mg PO DAILY [facility] Last Admin: 02/25/17 10:10 Dose: 25 mg Moxifloxacin HCl (Avelox Iv 400mg/250ml Ns) 250 mls @ 167 mls/hr IVPB Q24H [facility] Last Admin: 02/20/17 13:43 Dose: 167 mls/hr Losartan Potassium (Cozaar) 50 mg PO DAILY [facility] Last Admin: 02/25/17 10:09 Dose: 50 mg Methylprednisolone (Solu-Medrol) 40 mg IVP Q8 [facility] Last Admin: 02/25/17 13:10 Dose: 40 mg Metoprolol Tartrate (Lopressor) 25 mg PO Q12H [facility] Last Admin: 02/25/17 11:37 Dose: 25 mg Montelukast Sodium (Singulair) 10 mg PO HS [facility] Last Admin: 02/24/17 21:00 Dose: 10 mg Pantoprazole Sodium (Protonix Ec Tab) 40 mg PO DAILY [facility] Last Admin: 02/25/17 10:09 Dose: 40 mg Potassium Chloride (Klor-Con 10) 10 meq PO BRK [facility] Last Admin: 02/25/17 09:30 Dose: 10 meq Fluticasone/Salmeterol (Advair Diskus 250/50) 1 puff INH RQ12 [facility] Last Admin: 02/25/17 07:51 Dose: 1 puff Theophylline (Ahsan-24) 200 mg PO DAILY [facility] Last Admin: 02/20/17 11:03 Dose: 200 mg Tiotropium [place] (Spiriva) 18 mcg IH RQD [facility] Last Admin: 02/25/17 07:50 Dose: 18 mcg - Labs Labs: 02/22/17 06:18 02/22/17 06:18 PT 11.7 SECONDS (9.7-12.2) 02/18/17 12:13 INR 1.0 02/18/17 12:13 APTT 38 SECONDS (21-34) H 02/18/17 12:13 Assessment and Plan (1) Atrial fibrillation with RVR Status: Acute (2) CHF (congestive heart failure) Status: Acute (3) HTN (hypertension) Status: Acute (4) Hyponatremia Status: Acute (5) Influenza B Status: Acute (6) Prophylactic measure Status: Acute (7) Respiratory failure Status: Acute (8) COPD (chronic obstructive pulmonary disease) Status: Chronic (9) Chronic sinusitis with recurrent bronchitis Status: Chronic (10) Hx of lymphoma Status: Chronic (11) 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
[2017-02-26] MEDS: Albuterol-Ipratrop 3 mg / 0.5 (3 ml) UD INH SCH ×3 (01:17→13:17)
[2017-02-26] MEDS: MethylPREDNISolone 40 mg Vial IVP SCH (05:41)
[2017-02-26] MEDS: Potassium Chloride 10 mEq ER Tab PO SCH (08:00)
[2017-02-26] MEDS: Tiotropium 18 mcg Cap For Inhalation IH SCH (08:06)
[2017-02-26] MEDS: Fluticasone-Salmeterol 250-50mcg Diskus INH SCH (08:06)
--- NOTE | 2017-02-26 09:07 | CP.PCM.CON ---
History of Present Illness - History of Present Illness History of Present Illness: The pt is a 71 year old woman with copd, ex smoker for two years admitted with respiration infection. p has no known CAD, normal echo. pt had a brief period of atrial fibrillation. Now back in nsr. No chest pain, Pt was unaware of palpitations during atrial fib. TNI during event was slightly high, .1. Review of Systems - Review of Systems All systems: reviewed and no additional remarkable complaints except (as above.) Past Patient History - Infectious Disease Hx of Infectious Diseases: None - Past Medical History & Family History Past Medical History?: Yes - Past Social History Smoking Status: Former Smoker Alcohol: None Drugs: Denies Home Situation {Lives}: With Family - CARDIAC Hx Hypertension: Yes - PULMONARY Hx Asthma: Yes Hx Bronchitis: Yes Hx Chronic Obstructive Pulmonary Disease (COPD): Yes - NEUROLOGICAL Hx Neurological Disorder: No - HEENT Hx HEENT Problems: No Other/Comment: uses bifocal eyeglasses - RENAL Hx Chronic Kidney Disease: No - ENDOCRINE/METABOLIC Hx Endocrine Disorders: No - HEMATOLOGICAL/ONCOLOGICAL Hx Blood Disorders: No - INTEGUMENTARY Hx Dermatological Problems: No - MUSCULOSKELETAL/RHEUMATOLOGICAL Hx Musculoskeletal Disorders: No Hx Falls: No - GASTROINTESTINAL Hx Gastrointestinal Disorders: No - GENITOURINARY/GYNECOLOGICAL Hx Genitourinary Disorders: No - PSYCHIATRIC Hx Substance Use: No - SURGICAL HISTORY Hx Surgeries: Yes Other/Comment: multiple removal of lymphoma-left groin(1989) - ANESTHESIA Hx Anesthesia: Yes Hx Anesthesia Reactions: No Hx Malignant Hyperthermia: No Meds Allergies/Adverse Reactions: Allergies Allergy/AdvReac Type Severity Reaction Status Date / Time No Known Allergies Allergy Verified 02/18/17 11:43 - Medications Medications: Current Medications Acetaminophen (Tylenol 325mg Tab) 650 mg PO Q6 PRN PRN Reason: Fever >100.4 F Last Admin: 02/21/17 00:34 Dose: 650 mg Albuterol/Ipratropium (Duoneb 3 Mg/0.5 Mg (3 Ml) Ud) 3 ml INH RQ6 [facility] Last Admin: 02/26/17 08:05 Dose: 3 ml Aspirin (Ecotrin) 81 mg PO DAILY [facility] Last Admin: 02/25/17 10:10 Dose: 81 mg Enoxaparin Sodium (Lovenox) 40 mg SC DAILY [facility] Last Admin: 02/25/17 10:12 Dose: 40 mg Hydrochlorothiazide (Hydrodiuril) 25 mg PO DAILY [facility] Last Admin: 02/25/17 10:10 Dose: 25 mg Moxifloxacin HCl (Avelox Iv 400mg/250ml Ns) 250 mls @ 167 mls/hr IVPB Q24H [facility] Last Admin: 02/20/17 13:43 Dose: 167 mls/hr Losartan Potassium (Cozaar) 50 mg PO DAILY [facility] Last Admin: 02/25/17 10:09 Dose: 50 mg Methylprednisolone (Solu-Medrol) 40 mg IVP Q8 [facility] Last Admin: 02/26/17 05:41 Dose: 40 mg Metoprolol Tartrate (Lopressor) 25 mg PO Q12H [facility] Last Admin: 02/26/17 00:19 Dose: 25 mg Montelukast Sodium (Singulair) 10 mg PO HS [facility] Last Admin: 02/25/17 22:02 Dose: 10 mg Pantoprazole Sodium (Protonix Ec Tab) 40 mg PO DAILY [facility] Last Admin: 02/25/17 10:09 Dose: 40 mg Potassium Chloride (Klor-Con 10) 10 meq PO BRK [facility] Last Admin: 02/25/17 09:30 Dose: 10 meq Fluticasone/Salmeterol (Advair Diskus 250/50) 1 puff INH RQ12 [facility] Last Admin: 02/26/17 08:06 Dose: 1 puff Theophylline (Ahsan-24) 200 mg PO DAILY [facility] Last Admin: 02/20/17 11:03 Dose: 200 mg Tiotropium [place] (Spiriva) 18 mcg IH RQD [facility] Last Admin: 02/26/17 08:06 Dose: 18 mcg Physical Exam - Constitutional Appears: Older Than Stated Age - Eye Exam Eye Exam: EOMI - ENT Exam ENT Exam: Mucous Membranes Dry - Respiratory Exam Respiratory Exam: Rhonchi, Wheezes - Cardiovascular Exam Cardiovascular Exam: REGULAR RHYTHM - GI/Abdominal Exam GI & Abdominal Exam: Normal Bowel Sounds - Exam External exam: NORMAL EXTERNAL EXAM - Extremities Exam Extremities exam: Positive for: normal inspection - Back Exam Back exam: NORMAL INSPECTION - Neurological Exam Neurological exam: Alert, Oriented x3, Reflexes Normal - Psychiatric Exam Psychiatric exam: Normal Affect - Skin Skin Exam: Normal Color Results - Vital Signs Recent Vital Signs: Last Vital Signs Temp 97.3 F L 02/26/17 07:17 Pulse 66 02/26/17 07:17 Resp 18 02/26/17 07:17 BP 152/96 H 02/26/17 07:17 Pulse Ox 98 02/26/17 07:17 - Labs Result Diagrams: 02/22/17 06:18 02/22/17 06:18 - EKG Data EKG Interpreted by: Myself EKG shows normal: Sinus rhythm Assessment & Plan - Assessment and Plan (Free Text) Assessment: 1. Episodic atrial fib: normal LV EF, now back in nsr. Begin xarelto 30 mg a day. Pt understand reason for medication. 2. HTNl stop beta alayna (wheezing) begin verapamil. Increased losartan. 3. TNi trivial elevation in this setting is not diagnostic of [place]. When pt is feeling better, as an outpatient, a stress test is advised.
[2017-02-26] MEDS: Pantoprazole 40 mg EC Tab PO SCH (09:45)
--- NOTE | 2017-02-26 11:18 | CP.PCM.PN ---
Subjective - Date & Time of Evaluation Date of Evaluation: 02/26/17 Time of Evaluation: 10:00 - Subjective Subjective: Medicine progress Note- Dr Caity Marrero's service Patient seen and examined. Patient sitting in chair at bedside with family member present. She states that she feels very well today and has no acute complaints. Patient says that her breathing has improved. She was seen by chute boss this morning and had her medications adjusted for better blood pressure control. She is also being started on a blood thinner which she understands the risks and benefits of. 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 The patient uses home O2 NC at 3L and is breathing comfortably on it at this time. She states that she has a non-productive cough but that it is chronic from her COPD. Patient denies chest pain, palpitations, dizziness, headache, weakness, and abdominal pain. Objective - Vital Signs/Intake and Output Vital Signs (last 24 hours): Temp Pulse Resp BP Pulse Ox 97.3 F L 66 18 152/96 H 98 02/26/17 07:17 02/26/17 07:17 02/26/17 07:17 02/26/17 07:17 02/26/17 07:17 - Medications Medications: Current Medications Acetaminophen (Tylenol 325mg Tab) 650 mg PO Q6 PRN PRN Reason: Fever >100.4 F Last Admin: 02/21/17 00:34 Dose: 650 mg Albuterol/Ipratropium (Duoneb 3 Mg/0.5 Mg (3 Ml) Ud) 3 ml INH RQ6 KIM Last Admin: 02/26/17 08:05 Dose: 3 ml Hydrochlorothiazide (Hydrodiuril) 25 mg PO DAILY KIM Last Admin: 02/26/17 09:46 Dose: 25 mg Moxifloxacin HCl (Avelox Iv 400mg/250ml Ns) 250 mls @ 167 mls/hr IVPB Q24H KIM Last Admin: 02/20/17 13:43 Dose: 167 mls/hr Losartan Potassium (Cozaar) 100 mg PO DAILY KIM Last Admin: 02/26/17 10:52 Dose: 100 mg Methylprednisolone (Solu-Medrol) 40 mg IVP Q8 KIM Last Admin: 02/26/17 05:41 Dose: 40 mg Montelukast Sodium (Singulair) 10 mg PO HS [facility] Last Admin: 02/25/17 22:02 Dose: 10 mg Pantoprazole Sodium (Protonix Ec Tab) 40 mg PO DAILY [facility] Last Admin: 02/26/17 09:45 Dose: 40 mg Potassium Chloride (Klor-Con 10) 10 meq PO BRK [facility] Last Admin: 02/26/17 08:00 Dose: 10 meq Rivaroxaban (Xarelto) 20 mg PO DAILY [facility] Fluticasone/Salmeterol (Advair Diskus 250/50) 1 puff INH RQ12 [facility] Last Admin: 02/26/17 08:06 Dose: 1 puff Theophylline (Ahsan-24) 200 mg PO DAILY [facility] Last Admin: 02/20/17 11:03 Dose: 200 mg Tiotropium [place] (Spiriva) 18 mcg IH RQD [facility] Last Admin: 02/26/17 08:06 Dose: 18 mcg Verapamil HCl (Calan Sr Tab) 240 mg PO DAILY [facility] - Labs Labs: 02/22/17 06:18 02/22/17 06:18 PT 11.7 SECONDS (9.7-12.2) 02/18/17 12:13 INR 1.0 02/18/17 12:13 APTT 38 SECONDS (21-34) H 02/18/17 12:13 - Constitutional Appears: Non-toxic, No Acute Distress - Head Exam Head Exam: ATRAUMATIC, NORMOCEPHALIC - Eye Exam Eye Exam: EOMI, Normal appearance - ENT Exam ENT Exam: Mucous Membranes Moist - Respiratory Exam Respiratory Exam: Wheezes (mild expiratory wheezes in bilateral lung bases), NORMAL BREATHING PATTERN. absent: Accessory Muscle Use, Rhonchi, Respiratory Distress, Stridor - Cardiovascular Exam Cardiovascular Exam: REGULAR RHYTHM, +S1, +S2. absent: Bradycardia, Tachycardia , Irregular Rhythm - GI/Abdominal Exam GI & Abdominal Exam: Soft, Normal Bowel Sounds. 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 Start Xarelto 20mg PO daily x 21 days, then Xarelto 15mg PO BID. ECHO- LV EF nml Patient should schedule outpatient stress test (3) HTN Stopped Beta-alayna due to COPD Increase Cozaar 100mg PO daily Start Verapamil 240mg PO daily HCTZ 25mg PO daily (4) Prophylactic measures Protonix 40mg daily Xarelto SCDs
[2017-02-26] MEDS ORDERED: diltiaZEM 240 mg/24 Hours CD Cap PO SCH (13:15)
[2017-02-26 15:58] VITALS: BP 134/85; PULSE 77; RESP 20; TEMP 98.2; O2SAT 97
--- NOTE | 2017-02-26 16:19 | PCM.HF ---
Heart Failure Core Measure - Heart Failure Ejection Fraction: 40 % or Greater (LVEF 62%) DONN Inhibitor Prescribed: No Contraindication/Reason for not providing: ON ARB Beta-Andre Prescribed: None Contraindication/Reason for not providing: COPD Angiotensin II Receptor Andre Prescribed: Yes AnticoagulationTherapy for Atrial Fibrillation/Atrialflutter: Yes Aldosterone Antagonist Prescribed: No Contraindication/Reason for not providing: RENAL DYSFUNCTION Hydralazine Nitrate Prescribed: No Contraindication/Reason for not providing: CA CHANNEL ANDRE Implantable Cardioverter Defibrillator Therapy: No Contraindication/Reason for not providing: LVEF >40% Cardiac Resynchronization Therapy Prescribed: No Contraindication/Reason for not providing: LVEF >40% - Follow up Will be discharged to: Home Follow Up Date (must be within 7 days from discharge): 03/01/17 Follow Up Time: 09:00
--- NOTE | 2017-02-26 18:58 | CARD ---
APPROVED REPORT EKG Measurement Heart [id number] <Conclusion> Atrial fibrillation with rapid ventricular response ST & T wave abnormality, consider inferolateral ischemia or digitalis effect Abnormal ECG
== END 2017-02-26 17:27 | disposition home or self-care (01) | DRG 194 ==
LOC: C.ER 11:35 → C.9E 12:53 → C.5T 14:13 → C.9I 02-20 17:00 → C.6T 02-23 21:51
PROVIDERS: ADMIT Internal Medicine Nephrology; ATTEND Internal Medicine Nephrology
DX: J10.1 Influenza due to other identified influenza virus with other respiratory manifestations (principal); J44.1 Chronic obstructive pulmonary disease with (acute) exacerbation; I48.91 Unspecified atrial fibrillation; R00.0 Tachycardia, unspecified; I10 Essential (primary) hypertension; J45.909 Unspecified asthma, uncomplicated; M40.209 Unspecified kyphosis, site unspecified; Z85.72 Personal history of non-Hodgkin lymphomas; Z92.21 Personal history of antineoplastic chemotherapy; Z87.891 Personal history of nicotine dependence; Z80.1 Family history of malignant neoplasm of trachea, bronchus and lung

== ENCOUNTER 2018-03-01 13:39 | Inpatient (IN) | payer MEDICARE ==
[2018-03-01] MEDS ORDERED: Albuterol-Ipratrop 3 mg / 0.5 (3 ml) UD ONE (14:38)
[2018-03-01 14:39] LABS: BASO # 0.1 K/uL (0.0-0.2); BASO % 1.2 % (0.0-2.0); EOS # 0.3 K/uL (0.0-0.7); EOS % 3.1 % (0.0-4.0); HEMOGLOBIN 12.6 g/dL (11.0-16.0); LYMPH # 2.2 K/uL (1.0-4.3); MEAN CELL VOLUME 83.7 fL (81.0-99.0); MEAN CORPUSCULAR HEMOGLOBIN 28.1 pg (27.0-31.0); MEAN CORPUSCULAR HGB CONC 33.6 g/dL (33.0-37.0); MONO % 11.2 % (0.0-10.0); NEUT # 5.3 K/uL (1.8-7.0); NEUT % 59.5 % (50.0-75.0); NRBC % 0.1 % (0.0-2.0); RBC 4.49 Mil/uL (3.80-5.20); RED CELL DISTRIBUTION WIDTH 13.9 % (11.5-14.5); WHITE BLOOD COUNT 8.9 K/uL (4.8-10.8)
[2018-03-01] MEDS: Albuterol-Ipratrop 3 mg / 0.5 (3 ml) UD IH SCH ×3 (14:40→15:04)
[2018-03-01 14:52] LABS: ALB/GLOB RATIO 1.2 (1.0-2.1); ALBUMIN 4.1 g/dL (3.5-5.0); ALT/SGPT 42 U/L (9-52); AST/SGOT 34 U/L (14-36); BLOOD UREA NITROGEN 23 mg/dL (7-17); CALCIUM 9.6 mg/dl (8.6-10.4); GFR AFRICAN-AMERICAN > 60; GFR NON-AFRICAN AMERICAN 54
[2018-03-01 15:03] LABS: B-TYPE NATRIURETIC PEPTIDE 1530 pg/mL (0-900)
--- NOTE | 2018-03-01 15:37 | RAD ---
Chest x-ray single frontal view History: Shortness of breath. Comparison: 02/18/2017 Findings: Biapical pleural thickening with upper lobe granulomatous changes. Mild venous congestion. Patchy bibasilar airspace opacities. Right hilar prominence. Calcification at the aortic knob. Heart size within normal limits. Degenerative changes in the spine and shoulders. Impression: Biapical pleural thickening with upper lobe granulomatous changes. Mild venous congestion. Patchy bibasilar airspace opacities. Right hilar prominence. Calcification at the aortic knob. Heart size within normal limits.
--- NOTE | 2018-03-01 15:57 | C.PDOC ---
History Of Present Illness Pt has severe COPD (on home O2). She started feeling SOB 4 days ago and was started on Singulair and Prednisone by PMD without improvement. Time Seen by Provider: 03/01/18 14:01 Chief Complaint (Nursing): Shortness Of Breath History Per: Patient, Family Onset/Duration Of Symptoms: Days (4) Current Symptoms Are (Timing): Worse Initiating Event: Upper Respiratory Illness (vs. allergies) Current Respiratory Medications: See Home Med List, Prednisone Severity: Moderate Associated Symptoms: Productive Cough Reports Recently: Treated By A Physician Additional History Per: Prior Records Past Medical History Reviewed: Historical Data, Nursing Documentation, Vital Signs Vital Signs: Last Vital Signs Temp 97.8 F 03/01/18 13:46 Pulse 68 03/01/18 15:52 Resp 16 03/01/18 15:52 BP 143/78 03/01/18 15:52 Pulse Ox 97 03/01/18 15:52 - Medical History PMH: Asthma, Atrial Fibrillation, Bronchitis, COPD (on home O2), HTN - [facility] Procedures ASSISTANCE WITH RESPIRATORY VENTILATION, >96 HRS, CPAP (11/15/15) INFLUENZA VACCINATION (12/11/14) VACCINATION NEC (12/11/14) Family History: States: Unknown Family Hx - Social History Hx Tobacco Use: No (Quit) Hx Alcohol Use: No Hx Substance Use: No - Immunization History Hx Tetanus Toxoid Vaccination: No Hx Influenza Vaccination: Yes Hx Pneumococcal Vaccination: Yes (2014) Review Of Systems Except As Marked, All Systems Reviewed And Found Negative. Constitutional: Negative for: Fever ENT: Positive for: Nose Congestion. Negative for: Throat Pain Cardiovascular: Negative for: Chest Pain Respiratory: Positive for: Cough, Shortness of Breath, Sputum. Negative for: Hemoptysis Gastrointestinal: Negative for: Vomiting, Abdominal Pain Musculoskeletal: Negative for: Neck Pain, Back Pain, Leg Pain Skin: Negative for: Rash Neurological: Negative for: Weakness, Numbness Physical Exam - Physical Exam Appears: In Acute Distress (mild), Chronically Ill Skin: Normal Color, Warm, Dry, No Rash Head: Atraumatic, Normacephalic Eye(s): bilateral: PERRL, EOMI Neck: Normal ROM, Supple Cardiovascular: Rhythm Regular Respiratory: Wheezing Gastrointestinal/Abdominal: Soft, No Tenderness Back: No CVA Tenderness Extremity: Normal ROM, No Pedal Edema, No Calf Tenderness Neurological/Psych: Oriented x3, Normal Motor, Normal Sensation ED Course And Treatment - Laboratory Results Result Diagrams: 03/01/18 14:35 03/01/18 14:35 ECG: Interpreted By Me, Viewed By Me ECG Rhythm: Sinus Rhythm, Nonspecific Changes Rate From EC O2 Sat by Pulse Oximetry: 95 (On O2 NC) Pulse Ox Interpretation: Other Interpretation Of Abnormal: Borderline - Radiology CXR: Viewed By Me, Read By Radiologist CXR Interpretation: Yes: Heart Size (wnl), Other (Biapical pleural thickening with upper lobe granulomatous changes. ) - Physician Consult Information Physician Contacted: Basil Sahu Outcome Of Conversation: Unable to reach after multiple attempts. Progress - Interventions Interventions:: Observation, Oxygen - Medications Administered Inhaled nebulized: Anticholinergic, Beta-2 agonist Intravenous: Corticosteroid - Data Reviewed Data Reviewed: Lab, Diagnostic imaging, EKG, Old records - Patient Status Patient status: Partially improved - Critical Care Citical Care: Excluding Proc Time Critical Care Time: 45 minutes - Continuity of Care Discussed patient case with:: Patient, Family-HIPPA compliant, ED Nurse, Covering for PMD - Patient Plan Patient Plan: Admission Disposition Discussed With DrKt: Ronn Marrero Comment: He accepted pt on hospitalist service. Doctor Will See Patient In The: Hospital Counseled Patient/Family Regarding: Studies Performed, Diagnosis - Disposition Disposition: HOSPITALIZED Disposition Time: 16:02 Condition: FAIR - Clinical Impression Clinical Impression: COPD exacerbation
[2018-03-01] MEDS ORDERED: cefTRIAXone IV 1 gm in Dextros 50 ML IVPB ONE (16:08)
[2018-03-01] MEDS ORDERED: Ipratropium 0.02% Inhal Soln (0.5 mg/2.5 ml) UD IH PRN (16:20)
[2018-03-01] MEDS: Pantoprazole 40 mg EC Tab PO SCH (17:00)
--- NOTE | 2018-03-01 17:00 | CP.PCM.HP ---
History of Present Illness - History of Present Illness History of Present Illness: CC: "I had trouble breathing" Patient is a 72 year old female with PMHx significant for COPD who presents to the ED with complaint of difficulty breathing since Saturday. Patient states that on Saturday she had some nasal congestion but denied cough, fever, or chills. Patient states she normally has a home visiting nurse visit her every two months and her normal visit day was also this past Saturday. Home nurse prescribed patient Prednisone 20mg and Augmentin and told patient to go to the ER if there was no improvement in symptoms by Saturday02/28/18. Patient states she normally uses nebulizer treatments four times a day and that his past and Saturday she used five treatments per day. Patient states that she was having difficulty speaking in full sentences. She reports sleeping on two pillows at night and sleeps sitting up. She reports anxiety with laying flat. Patient denies chest pain, cough, palpitations, lightheadedness or dizziness, nausea, vomiting, diarrhea or constipation, leg swelling. She denies recent travel or sick contacts. PMD: Dr. Francisco Meds: prednisone 20mg and augmentin started 02/25/18; advair 250/50, albuterol neb 4x daily, singulair 10mg HS, cozaar 100mg daily, HCTZ 25mg daily, verapamil 240mg, spiriva 18mcg, xarelto 20mg PMHx: COPD on 3L O2 continuously for past 2 years, HTN, lymphoma s/p chemo and surgical resection 1989, atrial fibrillation, seasonal/ environmental allergies PSHx: lymphoma left groin, lipoma removal from scalp, breast cyst FamHx: two sisters from lung cancer, one sister alive with lung cancer , father age 57- had HTN and stroke, mother had diabetes SocialHx: former 1ppd smoker for 50 years, quit 3 years ago/ denies alcohol and drugs, lives with daughter, ambulates at home without assistive devices Allergies: seasonal code status: patient states she does not want to be intubated, patient unsure about chest compressions Present on Admission - Present on Admission Any Indicators Present on Admission: No Review of Systems - Constitutional Constitutional: absent: Chills, Fever, Headache - EENT Eyes: absent: Blurred Vision, Change in Vision Ears: absent: Dizziness Nose/Mouth/Throat: Nasal Congestion. absent: Nasal Discharge, Post Nasal Drip - Cardiovascular Cardiovascular: Dyspnea. absent: Chest Pain, Chest Pain at Rest, Diaphoresis, Leg Edema, Palpitations - Respiratory Respiratory: Chest Congestion. absent: Cough, Excessive Mucous Production - Gastrointestinal Gastrointestinal: absent: Constipation, Diarrhea, Nausea, Vomiting - Genitourinary Genitourinary: absent: Difficulty Urinating, Dysuria - Musculoskeletal Musculoskeletal: absent: Back Pain, Muscle Weakness - Integumentary Integumentary: absent: Dry Skin, Rash - Neurological Neurological: absent: Focal Weakness, Vertigo, Weakness - Endocrine Endocrine: absent: Fatigue, Palpitations Past Patient History - Infectious Disease Hx of Infectious Diseases: None - Past Medical History & Family History Past Medical History?: Yes - Past Social History Smoking Status: Former Smoker - CARDIAC Hx Atrial Fibrillation: Yes Hx Hypertension: Yes - PULMONARY Hx Asthma: Yes Hx Bronchitis: Yes Hx Chronic Obstructive Pulmonary Disease (COPD): Yes (on home O2) - NEUROLOGICAL Hx Neurological Disorder: No - HEENT Hx HEENT Problems: Yes Hx Cataracts: Yes - RENAL Hx Chronic Kidney Disease: No - ENDOCRINE/METABOLIC Hx Endocrine Disorders: No - HEMATOLOGICAL/ONCOLOGICAL Hx Blood Disorders: Yes - INTEGUMENTARY Hx Dermatological Problems: No - MUSCULOSKELETAL/RHEUMATOLOGICAL Hx Musculoskeletal Disorders: No Hx Falls: No - GASTROINTESTINAL Hx Gastrointestinal Disorders: No - GENITOURINARY/GYNECOLOGICAL Hx Genitourinary Disorders: No - PSYCHIATRIC Hx Substance Use: No - SURGICAL HISTORY Hx Surgeries: Yes Other/Comment: multiple removal of lymphoma-left groin(1989) - ANESTHESIA Hx Anesthesia: Yes Hx Anesthesia Reactions: No Hx Malignant Hyperthermia: No Meds Allergies/Adverse Reactions: Allergies Allergy/AdvReac Type Severity Reaction Status Date / Time No Known Allergies Allergy Verified 03/01/18 13:46 Physical Exam - Constitutional Appears: Non-toxic, No Acute Distress - Head Exam Head Exam: ATRAUMATIC, NORMOCEPHALIC - Eye Exam Eye Exam: EOMI - ENT Exam ENT Exam: Mucous Membranes Moist - Respiratory Exam Respiratory Exam: Wheezes (trace bibasilar). absent: Respiratory Distress Additional comments: speaking in full sentences - Cardiovascular Exam Cardiovascular Exam: +S1, +S2. absent: Tachycardia, Irregular Rhythm - GI/Abdominal Exam GI & Abdominal Exam: Normal Bowel Sounds, Soft. absent: Tenderness - Extremities Exam Extremities exam: Positive for: normal inspection. Negative for: calf tenderness, pedal edema - Neurological Exam Neurological exam: Alert, Oriented x3 - Psychiatric Exam Psychiatric exam: Normal Affect, Normal Mood - Skin Skin Exam: Dry, Warm Results - Vital Signs Recent Vital Signs: Last Vital Signs Temp 97.8 F 03/01/18 13:46 Pulse 68 03/01/18 15:52 Resp 16 03/01/18 15:52 BP 143/78 03/01/18 15:52 Pulse Ox 95 03/01/18 16:03 - Labs Result Diagrams: 03/01/18 14:35 03/01/18 14:35 Labs: Laboratory Results - last 24 hr 03/01/18 03/01/18 03/01/18 14:35 14:35 14:35 WBC 8.9 RBC 4.49 Hgb 12.6 D Hct 37.6 MCV 83.7 MCH 28.1 MCHC 33.6 RDW 13.9 Plt Count 291 MPV 8.0 Neut % (Auto) 59.5 Lymph % (Auto) 25.0 [place] % (Auto) 11.2 H Eos % (Auto) 3.1 Baso % (Auto) 1.2 Neut # (Auto) 5.3 Lymph # (Auto) 2.2 [place] # (Auto) 1.0 H Eos # (Auto) 0.3 Baso # (Auto) 0.1 Sodium 140 Potassium 3.6 Chloride 91 L Carbon Dioxide 37 H Anion Gap 16 BUN 23 H Creatinine 1.0 Est GFR ( Amer) > 60 Est GFR (Non-Af Amer) 54 Random Glucose 87 Calcium 9.6 Magnesium 1.8 Total Bilirubin 0.7 AST 34 ALT 42 Alkaline Phosphatase 56 Troponin I 0.0270 NT-Pro-B Natriuret Pep 1530 H Total Protein 7.4 Albumin 4.1 Globulin 3.4 Albumin/Globulin Ratio 1.2 Influenza Typ A,B (EIA) Negative for flu a/b Assessment & Plan - Assessment and Plan (Free Text) Assessment: 1. COPD Exacerbation with Questionable bilateral basilar pneumonia patient received solumedrol 125 in the ER, will continue 60mg IV q8h continue home medication advair 250/50 q12h continue home medication spiriva 18mcg inhaled daily continue home medication singulair 10mg PO HS start ipratropium inhaled q6h scheduled for 24 hours, then q6prn after 03/01/18 chest xray: biapical pleural thickening with upper lobe granulomatous changes, mild venous congestion, patchy bibasilar airspace opacities, right hilar prominence. calcification at the aortic knob (see full report) 03/01/18: start azithromycin 500mg IV q24h and rocephin 1g IV daily for empiric pneumonia coverage will check urine legionella, urine strep pneumoniae, mycoplasma Dr. Neves, pulmonology consulted- help appreciated 2. HTN continue home medication cozaar 100mg PO daily continue home medication HCTZ 25mg PO daily continue home medication verapamil 240mg PO HS heart healthy 2g sodium diet continue to monitor 3. Hx of Atrial Fibrillation Patient follows as outpatient with Dr. Kowalski, next appointment scheduled 03/17 continue home medication Xarelto 20mg PO HS 4. Elevated ProBNP possibly secondary to COPD exacerbation will check repeat echo last echo 01/2017: LVEF normal, EF 60-65%, hypertensive heart disease, no aortic regurgitation, mild mitral regurgitation, mild tricuspid regurgitation, no pulmonary HTN, mild pulm. valve regurgitation (see full report) 5. Prophylactic measure patient on Xarelto protonix 40mg PO daily
[2018-03-01 17:49] VITALS: RESP 20
[2018-03-01] MEDS: Azithromycin 500mg/250ML NS 500 MG/250 ML BAG IVPB SCH (18:15)
[2018-03-01] MEDS: Saccharomyces Boulardi 250 mg Cap PO SCH (19:30)
[2018-03-01] MEDS: cefTRIAXone IV 1 gm in Dextros 50 ML IVPB SCH (20:32)
[2018-03-01] MEDS: Ipratropium 0.02% Inhal Soln (0.5 mg/2.5 ml) UD IH SCH (20:52)
[2018-03-01] MEDS: Fluticasone-Salmeterol 250-50mcg Diskus INH SCH (20:52)
[2018-03-01] MEDS: Verapamil 240 mg ER Tab PO SCH (22:14)
[2018-03-02] MEDS: Ipratropium 0.02% Inhal Soln (0.5 mg/2.5 ml) UD IH SCH ×4 (01:18→19:26)
[2018-03-02] MEDS: Fluticasone-Salmeterol 250-50mcg Diskus INH SCH ×2 (07:20→19:58)
[2018-03-02 09:00] LABS: BASO % 0.1 % (0.0-2.0); HEMOGLOBIN 12.1 g/dL (11.0-16.0); MEAN CELL VOLUME 83.6 fL (81.0-99.0); MEAN CORPUSCULAR HEMOGLOBIN 28.1 pg (27.0-31.0); MEAN CORPUSCULAR HGB CONC 33.6 g/dL (33.0-37.0); MEAN PLATELET VOLUME 8.5 fL (7.2-11.7); MONO # 0.1 K/uL (0.0-0.8); NEUT # 8.9 K/uL (1.8-7.0); NEUT % 88.9 % (50.0-75.0); RBC 4.31 Mil/uL (3.80-5.20); RED CELL DISTRIBUTION WIDTH 13.9 % (11.5-14.5); WHITE BLOOD COUNT 10.1 K/uL (4.8-10.8)
[2018-03-02 09:22] LABS: CALCIUM 9.5 mg/dl (8.6-10.4)
--- NOTE | 2018-03-02 09:40 | CP.PCM.CON ---
Past Patient History - Infectious Disease Hx of Infectious Diseases: None - Past Medical History & Family History Past Medical History?: Yes - Past Social History Smoking Status: Former Smoker - CARDIAC Hx Atrial Fibrillation: Yes Hx Hypertension: Yes - PULMONARY Hx Asthma: Yes Hx Bronchitis: Yes Hx Chronic Obstructive Pulmonary Disease (COPD): Yes (on home O2) - NEUROLOGICAL Hx Neurological Disorder: No - HEENT Hx HEENT Problems: Yes Hx Cataracts: Yes - RENAL Hx Chronic Kidney Disease: No - ENDOCRINE/METABOLIC Hx Endocrine Disorders: No - HEMATOLOGICAL/ONCOLOGICAL Hx Blood Disorders: Yes - INTEGUMENTARY Hx Dermatological Problems: No - MUSCULOSKELETAL/RHEUMATOLOGICAL Hx Musculoskeletal Disorders: No Hx Falls: No - GASTROINTESTINAL Hx Gastrointestinal Disorders: No - GENITOURINARY/GYNECOLOGICAL Hx Genitourinary Disorders: No - PSYCHIATRIC Hx Substance Use: No - SURGICAL HISTORY Hx Surgeries: Yes Other/Comment: multiple removal of lymphoma-left groin(1989) - ANESTHESIA Hx Anesthesia: Yes Hx Anesthesia Reactions: No Hx Malignant Hyperthermia: No Meds Allergies/Adverse Reactions: Allergies Allergy/AdvReac Type Severity Reaction Status Date / Time No Known Allergies Allergy Verified 03/01/18 13:46 - Medications Medications: Current Medications Hydrochlorothiazide (Hydrodiuril) 25 mg PO Q24H KIM Azithromycin (Zithromax 500mg In Ns Addvantage) 500 mg in 250 mls @ 167 mls/hr IVPB Q24H KIM PRN Reason: Protocol Last Admin: 03/01/18 18:15 Dose: 167 mls/hr Ceftriaxone Sodium (Rocephin Iv 1 Gm Duplex) 50 mls @ 100 mls/hr IVPB Q24H KIM PRN Reason: Protocol Last Admin: 03/01/18 20:32 Dose: 100 mls/hr Ipratropium [place] (Atrovent) 0.5 mg IH RQ6 PRN PRN Reason: Shortness of Breath Ipratropium [place] (Atrovent) 0.5 mg IH RQ6 KIM Stop: 03/02/18 20:01 Last Admin: 03/02/18 07:20 Dose: 0.5 mg Losartan Potassium (Cozaar) 100 mg PO DAILY KIM Methylprednisolone (Solu-Medrol) 60 mg IVP Q8H [facility] Last Admin: 03/02/18 01:03 Dose: 60 mg Montelukast Sodium (Singulair) 10 mg PO HS KIM Last Admin: 03/01/18 21:47 Dose: 10 mg Pantoprazole Sodium (Protonix Ec Tab) 40 mg PO DAILY [facility] Last Admin: 03/01/18 17:00 Dose: 40 mg Rivaroxaban (Xarelto) 20 mg PO HS [facility] Last Admin: 03/01/18 21:47 Dose: 20 mg Saccharomyces Boulardii (Florastor) 250 mg PO BID [facility] Last Admin: 03/01/18 19:30 Dose: 250 mg Fluticasone/Salmeterol (Advair Diskus 250/50) 1 puff INH RQ12 [facility] Last Admin: 03/02/18 07:20 Dose: Not Given Tiotropium [place] (Spiriva) 18 mcg INH RQ24 [facility] Verapamil HCl (Calan Sr Tab) 240 mg PO HS [facility] Last Admin: 03/01/18 22:14 Dose: 240 mg Results - Vital Signs Recent Vital Signs: Last Vital Signs Temp 98.1 F 03/02/18 08:00 Pulse 68 03/02/18 08:00 Resp 20 03/02/18 08:00 BP 132/65 03/02/18 08:00 Pulse Ox 96 03/02/18 08:00 - Labs Result Diagrams: 03/02/18 08:48 03/02/18 08:48 Labs: Laboratory Results - last 24 hr 03/01/18 03/01/18 03/01/18 14:35 14:35 14:35 WBC 8.9 RBC 4.49 Hgb 12.6 D Hct 37.6 MCV 83.7 MCH 28.1 MCHC 33.6 RDW 13.9 Plt Count 291 MPV 8.0 Neut % (Auto) 59.5 Lymph % (Auto) 25.0 [place] % (Auto) 11.2 H Eos % (Auto) 3.1 Baso % (Auto) 1.2 Neut # (Auto) 5.3 Lymph # (Auto) 2.2 [place] # (Auto) 1.0 H Eos # (Auto) 0.3 Baso # (Auto) 0.1 Sodium 140 Potassium 3.6 Chloride 91 L Carbon Dioxide 37 H Anion Gap 16 BUN 23 H Creatinine 1.0 Est GFR ( Amer) > 60 Est GFR (Non-Af Amer) 54 Random Glucose 87 Calcium 9.6 Magnesium 1.8 Total Bilirubin 0.7 AST 34 ALT 42 Alkaline Phosphatase 56 Troponin I 0.0270 NT-Pro-B Natriuret Pep 1530 H Total Protein 7.4 Albumin 4.1 Globulin 3.4 Albumin/Globulin Ratio 1.2 Influenza Typ A,B (EIA) Negative for flu a/b Ur L.pneumophila Ag 03/01/18 03/02/18 03/02/18 18:00 08:48 08:48 WBC 10.1 RBC 4.31 Hgb 12.1 Hct 36.1 MCV 83.6 MCH 28.1 MCHC 33.6 RDW 13.9 Plt Count 301 MPV 8.5 Neut % (Auto) 88.9 H Lymph % (Auto) 10.0 L [place] % (Auto) 1.0 Eos % (Auto) 0.0 Baso % (Auto) 0.1 Neut # (Auto) 8.9 H Lymph # (Auto) 1.0 [place] # (Auto) 0.1 Eos # (Auto) 0.0 Baso # (Auto) 0.0 Sodium 139 Potassium 4.5 Chloride 92 L Carbon Dioxide 34 H Anion Gap 18 BUN 29 H Creatinine 1.1 Est GFR ( Amer) 59 Est GFR (Non-Af Amer) 49 Random Glucose 214 H Calcium 9.5 Magnesium Total Bilirubin AST ALT Alkaline Phosphatase Troponin I NT-Pro-B Natriuret Pep Total Protein Albumin Globulin Albumin/Globulin Ratio Influenza Typ A,B (EIA) Ur L.pneumophila Ag Negative
--- NOTE | 2018-03-02 09:55 | CP.PCM.PN ---
<Gladys Francis DO - Last Filed: 03/02/18 14:08> Subjective - Date & Time of Evaluation Date of Evaluation: 03/02/18 Time of Evaluation: 09:55 - Subjective Subjective: Medicine progress note for Dr. Ronn Marrero's service Patient seen and examined. Patient states her breathing is improved and feels better. Patient reports good appetite and denies cough, chest pain, nausea, vomiting, fevers, chills. Patient's daughter at bedside and states her mother sounds better and less breathless when speaking. Objective - Vital Signs/Intake and Output Vital Signs (last 24 hours): Temp Pulse Resp BP Pulse Ox 98.1 F 68 20 132/65 96 03/02/18 08:00 03/02/18 08:00 03/02/18 08:00 03/02/18 08:00 03/02/18 08:00 Intake and Output: 03/02/18 03/02/18 06:59 18:59 Intake Total 240 Balance 240 - Medications Medications: Current Medications Hydrochlorothiazide (Hydrodiuril) 25 mg PO Q24H [facility] Azithromycin (Zithromax 500mg In Ns Addvantage) 500 mg in 250 mls @ 167 mls/hr IVPB Q24H KIM PRN Reason: Protocol Last Admin: 03/01/18 18:15 Dose: 167 mls/hr Ceftriaxone Sodium (Rocephin Iv 1 Gm Duplex) 50 mls @ 100 mls/hr IVPB Q24H KIM PRN Reason: Protocol Last Admin: 03/01/18 20:32 Dose: 100 mls/hr Ipratropium [place] (Atrovent) 0.5 mg IH RQ6 PRN PRN Reason: Shortness of Breath Ipratropium [place] (Atrovent) 0.5 mg IH RQ6 KIM Stop: 03/02/18 20:01 Last Admin: 03/02/18 07:20 Dose: 0.5 mg Losartan Potassium (Cozaar) 100 mg PO DAILY [facility] Methylprednisolone (Solu-Medrol) 60 mg IVP Q8H [facility] Last Admin: 03/02/18 01:03 Dose: 60 mg Montelukast Sodium (Singulair) 10 mg PO HS [facility] Last Admin: 03/01/18 21:47 Dose: 10 mg Pantoprazole Sodium (Protonix Ec Tab) 40 mg PO DAILY [facility] Last Admin: 03/01/18 17:00 Dose: 40 mg Rivaroxaban (Xarelto) 20 mg PO HS [facility] Last Admin: 03/01/18 21:47 Dose: 20 mg Saccharomyces Boulardii (Florastor) 250 mg PO BID [facility] Last Admin: 03/01/18 19:30 Dose: 250 mg Fluticasone/Salmeterol (Advair Diskus 250/50) 1 puff INH RQ12 [facility] Last Admin: 03/02/18 07:20 Dose: Not Given Tiotropium [place] (Spiriva) 18 mcg INH RQ24 [facility] Verapamil HCl (Calan Sr Tab) 240 mg PO HS [facility] Last Admin: 03/01/18 22:14 Dose: 240 mg - Labs Labs: 03/02/18 08:48 03/02/18 08:48 - Constitutional Appears: No Acute Distress - Head Exam Head Exam: ATRAUMATIC, NORMOCEPHALIC - Eye Exam Eye Exam: EOMI - ENT Exam ENT Exam: Mucous Membranes Moist - Respiratory Exam Respiratory Exam: Wheezes (diffuse b/l end expiratory). absent: Chest Wall Tenderness, Respiratory Distress - Cardiovascular Exam Cardiovascular Exam: +S1, +S2 - GI/Abdominal Exam GI & Abdominal Exam: Soft, Normal Bowel Sounds. absent: Tenderness - Extremities Exam Extremities Exam: Normal Inspection. absent: Pedal Edema - Neurological Exam Neurological Exam: Alert, Awake - Psychiatric Exam Psychiatric exam: Normal Affect - Skin Skin Exam: Warm Assessment and Plan - Assessment and Plan (Free Text) Plan: 1. COPD Exacerbation with Questionable bilateral basilar pneumonia patient received solumedrol 125 in the ER, will continue 60mg IV q8h for today steroids to be tapered on 03/03 continue home medication advair 250/50 q12h continue home medication spiriva 18mcg inhaled daily continue home medication singulair 10mg PO HS start ipratropium inhaled q6h scheduled for 24 hours, then q6prn after 03/01/18 chest xray: biapical pleural thickening with upper lobe granulomatous changes, mild venous congestion, patchy bibasilar airspace opacities, right hilar prominence. calcification at the aortic knob (see full report) 03/01/18: start azithromycin 500mg IV q24h and rocephin 1g IV daily for empiric pneumonia coverage urine legionella negative urine strep pneumoniae, mycoplasma pending will check procalcitonin Dr. Neves, pulmonology consulted- help appreciated 2. HTN continue home medication cozaar 100mg PO daily continue home medication HCTZ 25mg PO daily continue home medication verapamil 240mg PO HS heart healthy 2g sodium diet continue to monitor 3. Hx of Atrial Fibrillation Patient follows as outpatient with Dr. Kowalski, next appointment scheduled 03/17 continue home medication Xarelto 20mg PO HS 4. Elevated ProBNP possibly secondary to COPD exacerbation will check repeat echo last echo 01/2017: LVEF normal, EF 60-65%, hypertensive heart disease, no aortic regurgitation, mild mitral regurgitation, mild tricuspid regurgitation, no pulmonary HTN, mild pulm. valve regurgitation (see full report) 5. Prophylactic measure patient on Xarelto protonix 40mg PO daily Case discussed with Dr. Shawna Marrero <Ronn Marrero - Last Filed: 03/02/18 21:01> Objective - Vital Signs/Intake and Output Vital Signs (last 24 hours): Temp Pulse Resp BP Pulse Ox 98.2 F 67 20 156/88 H 94 L 03/02/18 16:00 03/02/18 16:00 03/02/18 16:00 03/02/18 16:00 03/02/18 16:00 Intake and Output: 03/02/18 03/03/18 18:59 06:59 Intake Total 240 Balance 240 - Medications Medications: Current Medications Hydrochlorothiazide (Hydrodiuril) 25 mg PO Q24H [facility] Last Admin: 03/02/18 12:00 Dose: 25 mg Azithromycin (Zithromax 500mg In Ns Addvantage) 500 mg in 250 mls @ 167 mls/hr IVPB Q24H [facility]IM PRN Reason: Protocol Last Admin: 03/02/18 18:27 Dose: 167 mls/hr Ceftriaxone Sodium (Rocephin Iv 1 Gm Duplex) 50 mls @ 100 mls/hr IVPB Q24H [facility]IM PRN Reason: Protocol Last Admin: 03/02/18 20:20 Dose: 100 mls/hr Ipratropium [place] (Atrovent) 0.5 mg IH RQ6 [facility] Last Admin: 03/02/18 19:26 Dose: 0.5 mg Losartan Potassium (Cozaar) 100 mg PO DAILY [facility] Last Admin: 03/02/18 11:09 Dose: 100 mg Methylprednisolone (Solu-Medrol) 60 mg IVP Q8H [facility] Last Admin: 03/02/18 18:00 Dose: 60 mg Montelukast Sodium (Singulair) [address] [facility] Last Admin: 03/01/18 21:47 Dose: 10 mg Pantoprazole Sodium (Protonix Ec Tab) 40 mg PO DAILY [facility] Last Admin: 03/02/18 11:09 Dose: 40 mg Rivaroxaban (Xarelto) [address] [facility] Last Admin: 03/01/18 21:47 Dose: 20 mg Saccharomyces Boulardii (Florastor) 250 mg PO BID [facility] Last Admin: 03/02/18 18:27 Dose: 250 mg Fluticasone/Salmeterol (Advair Diskus 250/50) 1 puff INH RQ12 [facility] Last Admin: 03/02/18 19:58 Dose: 1 puff Tiotropium [place] (Spiriva) 18 mcg INH RQ24 [facility] Last Admin: 03/02/18 13:52 Dose: Not Given Verapamil HCl (Calan Sr Tab) [address] [facility] Last Admin: 03/01/18 22:14 Dose: 240 mg - Labs Labs: 03/02/18 08:48 03/02/18 08:48 Attending/Attestation - Attestation I have personally seen and examined this patient.: Yes I have fully participated in the care of the patient.: Yes I have reviewed all pertinent clinical information, including history, physical exam and plan: Yes Notes (Text): 03/02/18 20:55 Patient was seen and examined at 3 PM Exam, assessment and plan were gone over with the patient Also ROS: Breathing is much better Cough is still present with occasional white sputum production Also on Exam: Respiratory: Diffuse scattered end expiratory wheezing Continue the Ipratropium Nebulizer treatments continuous at Q6H and the Solumedrol at 60 mg Q8H for now considering the wheezing that was heard. Patient was placed on IV Rocephin and Azithromycin due to findings on admission Chest X Ray which indicated bibasilar airspace opacities. However, there is NO fever and NO elevated WBC. Serum Procalcitonin was sent today and if negative, Medicine Team please discontinue the antibiotics. Patient's Resolution Rep is Dr. Basil Sahu, who informed me that he will be away till 03/05/18. Therefore Resolution Rep Dr. Neves was consulted instead for the COPD Exacerbation. Patient uses home O2 continuously at 3 L. Ronn Marrero D.O.
--- NOTE | 2018-03-02 10:47 | CP.PCM.CON ---
History of Present Illness - History of Present Illness History of Present Illness: reason for consultation: shortness of breath and cough/congestion 72-year-old female with history of COPD, history of lymphoma, atrial fibrillation presented to emergency room complaining of difficulty breathing and cough associated with nasal congestion. Patient was prescribed prednisone and antibiotics without any relief. Patient denies fevers chills, denies chest pain. Meds: prednisone 20mg and augmentin started 02/25/18; advair 250/50, albuterol neb 4x daily, singulair 10mg HS, cozaar 100mg daily, HCTZ 25mg daily, verapamil 240mg, spiriva 18mcg, xarelto 20mg PMHx: COPD on 3L O2 continuously for past 2 years, HTN, lymphoma s/p chemo and surgical resection 1989, atrial fibrillation, seasonal/ environmental allergies PSHx: lymphoma left groin, lipoma removal from scalp, breast cyst FamHx: two sisters from lung cancer, one sister alive with lung cancer , father age 57- had HTN and stroke, mother had diabetes SocialHx: former 1ppd smoker for 50 years, quit 3 years ago/ denies alcohol and drugs, lives with daughter, ambulates at home without assistive devices Allergies: seasonal code status: patient states she does not want to be intubated, patient unsure about chest compressions Review of Systems - Review of Systems All systems: reviewed and no additional remarkable complaints except (shortness of breath and coug) Past Patient History - Infectious Disease Hx of Infectious Diseases: None - Past Medical History & Family History Past Medical History?: Yes - Past Social History Smoking Status: Former Smoker - CARDIAC Hx Atrial Fibrillation: Yes Hx Hypertension: Yes - PULMONARY Hx Asthma: Yes Hx Bronchitis: Yes Hx Chronic Obstructive Pulmonary Disease (COPD): Yes (on home O2) - NEUROLOGICAL Hx Neurological Disorder: No - HEENT Hx HEENT Problems: Yes Hx Cataracts: Yes - RENAL Hx Chronic Kidney Disease: No - ENDOCRINE/METABOLIC Hx Endocrine Disorders: No - HEMATOLOGICAL/ONCOLOGICAL Hx Blood Disorders: Yes - INTEGUMENTARY Hx Dermatological Problems: No - MUSCULOSKELETAL/RHEUMATOLOGICAL Hx Musculoskeletal Disorders: No Hx Falls: No - GASTROINTESTINAL Hx Gastrointestinal Disorders: No - GENITOURINARY/GYNECOLOGICAL Hx Genitourinary Disorders: No - PSYCHIATRIC Hx Substance Use: No - SURGICAL HISTORY Hx Surgeries: Yes Other/Comment: multiple removal of lymphoma-left groin(1989) - ANESTHESIA Hx Anesthesia: Yes Hx Anesthesia Reactions: No Hx Malignant Hyperthermia: No Meds Allergies/Adverse Reactions: Allergies Allergy/AdvReac Type Severity Reaction Status Date / Time No Known Allergies Allergy Verified 03/01/18 13:46 - Medications Medications: Current Medications Hydrochlorothiazide (Hydrodiuril) 25 mg PO Q24H [facility] Azithromycin (Zithromax 500mg In Ns Addvantage) 500 mg in 250 mls @ 167 mls/hr IVPB Q24H [facility]IM PRN Reason: Protocol Last Admin: 03/01/18 18:15 Dose: 167 mls/hr Ceftriaxone Sodium (Rocephin Iv 1 Gm Duplex) 50 mls @ 100 mls/hr IVPB Q24H KIM PRN Reason: Protocol Last Admin: 03/01/18 20:32 Dose: 100 mls/hr Ipratropium [place] (Atrovent) 0.5 mg IH RQ6 PRN PRN Reason: Shortness of Breath Ipratropium [place] (Atrovent) 0.5 mg IH RQ6 [facility] Stop: 03/02/18 20:01 Last Admin: 03/02/18 07:20 Dose: 0.5 mg Losartan Potassium (Cozaar) 100 mg PO DAILY [facility] Methylprednisolone (Solu-Medrol) 60 mg IVP Q8H [facility] Last Admin: 03/02/18 01:03 Dose: 60 mg Montelukast Sodium (Singulair) 10 mg PO HS [facility] Last Admin: 03/01/18 21:47 Dose: 10 mg Pantoprazole Sodium (Protonix Ec Tab) 40 mg PO DAILY [facility] Last Admin: 03/01/18 17:00 Dose: 40 mg Rivaroxaban (Xarelto) 20 mg PO HS [facility] Last Admin: 03/01/18 21:47 Dose: 20 mg Saccharomyces Boulardii (Florastor) 250 mg PO BID [facility] Last Admin: 03/01/18 19:30 Dose: 250 mg Fluticasone/Salmeterol (Advair Diskus 250/50) 1 puff INH RQ12 [facility] Last Admin: 03/02/18 07:20 Dose: Not Given Tiotropium [place] (Spiriva) 18 mcg INH RQ24 [facility] Verapamil HCl (Calan Sr Tab) 240 mg PO HS [facility] Last Admin: 03/01/18 22:14 Dose: 240 mg Physical Exam - Head Exam Head Exam: ATRAUMATIC, NORMOCEPHALIC - ENT Exam ENT Exam: Mucous Membranes Moist - Neck Exam Neck exam: Positive for: Normal Inspection - Respiratory Exam Respiratory Exam: Decreased Breath Sounds - Cardiovascular Exam Cardiovascular Exam: Irregular Rhythm - GI/Abdominal Exam GI & Abdominal Exam: Normal Bowel Sounds - Extremities Exam Extremities exam: Positive for: normal inspection - Neurological Exam Neurological exam: Alert, Oriented x3 Results - Vital Signs Recent Vital Signs: Last Vital Signs Temp 98.1 F 03/02/18 08:00 Pulse 68 03/02/18 08:00 Resp 20 03/02/18 08:00 BP 132/65 03/02/18 08:00 Pulse Ox 96 03/02/18 08:00 - Labs Result Diagrams: 03/02/18 08:48 03/02/18 08:48 Labs: Laboratory Results - last 24 hr 03/01/18 03/01/18 03/01/18 14:35 14:35 14:35 WBC 8.9 RBC 4.49 Hgb 12.6 D Hct 37.6 MCV 83.7 MCH 28.1 MCHC 33.6 RDW 13.9 Plt Count 291 MPV 8.0 Neut % (Auto) 59.5 Lymph % (Auto) 25.0 [place] % (Auto) 11.2 H Eos % (Auto) 3.1 Baso % (Auto) 1.2 Neut # (Auto) 5.3 Lymph # (Auto) 2.2 [place] # (Auto) 1.0 H Eos # (Auto) 0.3 Baso # (Auto) 0.1 Sodium 140 Potassium 3.6 Chloride 91 L Carbon Dioxide 37 H Anion Gap 16 BUN 23 H Creatinine 1.0 Est GFR ( Amer) > 60 Est GFR (Non-Af Amer) 54 Random Glucose 87 Calcium 9.6 Magnesium 1.8 Total Bilirubin 0.7 AST 34 ALT 42 Alkaline Phosphatase 56 Troponin I 0.0270 NT-Pro-B Natriuret Pep 1530 H Total Protein 7.4 Albumin 4.1 Globulin 3.4 Albumin/Globulin Ratio 1.2 Influenza Typ A,B (EIA) Negative for flu a/b Ur L.pneumophila Ag 03/01/18 03/02/18 03/02/18 18:00 08:48 08:48 WBC 10.1 RBC 4.31 Hgb 12.1 Hct 36.1 MCV 83.6 MCH 28.1 MCHC 33.6 RDW 13.9 Plt Count 301 MPV 8.5 Neut % (Auto) 88.9 H Lymph % (Auto) 10.0 L [place] % (Auto) 1.0 Eos % (Auto) 0.0 Baso % (Auto) 0.1 Neut # (Auto) 8.9 H Lymph # (Auto) 1.0 [place] # (Auto) 0.1 Eos # (Auto) 0.0 Baso # (Auto) 0.0 Sodium 139 Potassium 4.5 Chloride 92 L Carbon Dioxide 34 H Anion Gap 18 BUN 29 H Creatinine 1.1 Est GFR ( Amer) 59 Est GFR (Non-Af Amer) 49 Random Glucose 214 H Calcium 9.5 Magnesium Total Bilirubin AST ALT Alkaline Phosphatase Troponin I NT-Pro-B Natriuret Pep Total Protein Albumin Globulin Albumin/Globulin Ratio Influenza Typ A,B (EIA) Ur L.pneumophila Ag Negative Assessment & Plan (1) COPD exacerbation Status: Acute Comment: COPD exacerbation secondary to upper respiratory tract infec. Continue IV steroids. Nebulizer treatment. Continue antibiotics for now. Check pro calcitonin level
[2018-03-02] MEDS: Saccharomyces Boulardi 250 mg Cap PO SCH ×2 (11:09→18:27)
[2018-03-02] MEDS: Pantoprazole 40 mg EC Tab PO SCH (11:09)
[2018-03-02] MEDS: Tiotropium 18 mcg Cap For Inhalation INH SCH (13:52)
[2018-03-02] MEDS ORDERED: Ipratropium 0.02% Inhal Soln (0.5 mg/2.5 ml) UD IH PRN (18:00)
[2018-03-02] MEDS: Azithromycin 500mg/250ML NS 500 MG/250 ML BAG IVPB SCH (18:27)
[2018-03-02] MEDS: cefTRIAXone IV 1 gm in Dextros 50 ML IVPB SCH (20:20)
[2018-03-02] MEDS: Verapamil 240 mg ER Tab PO SCH (22:10)
[2018-03-03] MEDS: Ipratropium 0.02% Inhal Soln (0.5 mg/2.5 ml) UD IH SCH ×2 (01:33→07:20)
[2018-03-03] MEDS: Fluticasone-Salmeterol 250-50mcg Diskus INH SCH ×2 (07:20→19:41)
[2018-03-03 07:25] LABS: BASO % 0.2 % (0.0-2.0); HEMOGLOBIN 11.8 g/dL (11.0-16.0); LYMPH # 0.9 K/uL (1.0-4.3); LYMPH % 5.9 % (20.0-40.0); MEAN CELL VOLUME 82.3 fL (81.0-99.0); MEAN CORPUSCULAR HEMOGLOBIN 28.3 pg (27.0-31.0); MEAN CORPUSCULAR HGB CONC 34.4 g/dL (33.0-37.0); MEAN PLATELET VOLUME 8.3 fL (7.2-11.7); MONO # 0.4 K/uL (0.0-0.8); MONO % 2.8 % (0.0-10.0); NEUT # 14.3 K/uL (1.8-7.0); NEUT % 91.1 % (50.0-75.0); NRBC % 0.1 % (0.0-2.0); PLATELET COUNT 315 K/uL (130-400); RBC 4.18 Mil/uL (3.80-5.20); RED CELL DISTRIBUTION WIDTH 14.5 % (11.5-14.5)
[2018-03-03 07:32] LABS: WHITE BLOOD COUNT 15.7 K/uL (4.8-10.8)
[2018-03-03] MEDS: Tiotropium 18 mcg Cap For Inhalation INH SCH (07:52)
[2018-03-03 07:55] LABS: CALCIUM 9.1 mg/dl (8.6-10.4)
[2018-03-03 08:39] LABS: BANDS 2 % (0-2); LYMPHOCYTE 7 % (20-40); MONOCYTE 5 % (0-10); NEUTROPHIL 86 % (50-75); PLATELET ESTIMATE NORMAL (NORMAL); TOTAL CELLS COUNTED 100
[2018-03-03 08:40] LABS: ANISOCYTOSIS SLIGHT; TOXIC GRANULATION PRESENT
[2018-03-03 08:41] LABS: HYPOCHROMIC SLIGHT; LARGE PLATELETS PRESENT; POLYCHROMIC SLIGHT
[2018-03-03] MEDS: Pantoprazole 40 mg EC Tab PO SCH (10:34)
[2018-03-03] MEDS: Saccharomyces Boulardi 250 mg Cap PO SCH ×2 (10:34→17:45)
[2018-03-03] MEDS: Albuterol-Ipratrop 3 mg / 0.5 (3 ml) UD INH SCH ×2 (13:00→19:41)
[2018-03-03] MEDS: Azithromycin 500mg/250ML NS 500 MG/250 ML BAG IVPB SCH (16:49)
--- NOTE | 2018-03-03 17:10 | CP.PCM.PN ---
Subjective - Date & Time of Evaluation Date of Evaluation: 03/03/18 Time of Evaluation: 08:09 - Subjective Subjective: PGY1 Medicine Note for Dr. Montemayor Patient seen and examined at bedside this morning. No acute events overnight. Patient states that her breathing is much better. "I am still have some difficulty breathing but am no longer short of breath." Patient states that she is doing well and would like to go home sooner rather than later. She is speaking in full sentences while on nasal cannula. Denies fevers, chills, nausea , vomiting, diarrhea, constipation, chest pain, shortness of breath, abdominal pain, dysuria, or headaches Objective - Vital Signs/Intake and Output Vital Signs (last 24 hours): Temp Pulse Resp BP Pulse Ox 98.4 F 78 20 157/82 H 95 03/03/18 16:00 03/03/18 16:00 03/03/18 16:00 03/03/18 16:00 03/03/18 16:00 Intake and Output: 03/03/18 03/03/18 06:59 18:59 Intake Total 600 500 Balance 600 500 - Medications Medications: Current Medications Albuterol/Ipratropium (Duoneb 3 Mg/0.5 Mg (3 Ml) Ud) 3 ml INH RQ6 [facility] Last Admin: 03/03/18 13:00 Dose: 3 ml Hydrochlorothiazide (Hydrodiuril) 25 mg PO Q24H [facility] Last Admin: 03/03/18 12:46 Dose: 25 mg Azithromycin (Zithromax 500mg In Ns Addvantage) 500 mg in 250 mls @ 167 mls/hr IVPB Q24H [facility]IM PRN Reason: Protocol Last Admin: 03/03/18 16:49 Dose: 167 mls/hr Ceftriaxone Sodium (Rocephin Iv 1 Gm Duplex) 50 mls @ 100 mls/hr IVPB Q24H [facility]IM PRN Reason: Protocol Last Admin: 03/02/18 20:20 Dose: 100 mls/hr Losartan Potassium (Cozaar) 100 mg PO DAILY [facility] Last Admin: 03/03/18 10:34 Dose: 100 mg Methylprednisolone (Solu-Medrol) 60 mg IVP Q8H [facility] Last Admin: 03/03/18 16:49 Dose: 60 mg Montelukast Sodium (Singulair) 10 mg PO HS [facility] Last Admin: 03/02/18 22:11 Dose: 10 mg Pantoprazole Sodium (Protonix Ec Tab) 40 mg PO DAILY [facility] Last Admin: 03/03/18 10:34 Dose: 40 mg Rivaroxaban (Xarelto) 20 mg PO [facility] Last Admin: 03/02/18 22:10 Dose: 20 mg Saccharomyces Boulardii (Florastor) 250 mg PO BID [facility] Last Admin: 03/03/18 10:34 Dose: 250 mg Fluticasone/Salmeterol (Advair Diskus 250/50) 1 puff INH RQ12 [facility] Last Admin: 03/03/18 07:20 Dose: 1 puff Verapamil HCl (Calan Sr Tab) 240 mg PO [facility] Last Admin: 03/02/18 22:10 Dose: 240 mg - Labs Labs: 03/03/18 07:14 03/03/18 07:14 - Constitutional Appears: Non-toxic, No Acute Distress - Head Exam Head Exam: ATRAUMATIC, NORMOCEPHALIC - Eye Exam Eye Exam: EOMI - ENT Exam ENT Exam: Mucous Membranes Moist - Respiratory Exam Respiratory Exam: Decreased Breath Sounds (throughout L>R), Prolonged Expiratory Phase. absent: Accessory Muscle Use, Rales, Respiratory Distress - Cardiovascular Exam Cardiovascular Exam: REGULAR RHYTHM, +S1, +S2 - GI/Abdominal Exam GI & Abdominal Exam: Soft, Normal Bowel Sounds. absent: Distended, Firm, Guarding, Rigid - Extremities Exam Extremities Exam: Pedal Edema. absent: Calf Tenderness - Neurological Exam Neurological Exam: Alert, Awake, CN II-XII Intact, Oriented x3 - Psychiatric Exam Psychiatric exam: Normal Affect, Normal Mood - Skin Skin Exam: Dry, Warm Assessment and Plan - Assessment and Plan (Free Text) Plan: COPD Exacerbation with bilateral basilar pneumonia patient received solumedrol 125 in the ER, will continue 60mg IV q8h for today steroids to be tapered on 03/03 - lowered to 40mg IV q8h continue home medication advair 250/50 q12h continue home medication singulair 10mg PO HS Start on Duonebs q6h home medication spiriva 18mcg inhaled daily - discontinued ipratropium inhaled q6h scheduled for 24 hours, then q6h prn after - discontinued 03/01/18 chest xray: biapical pleural thickening with upper lobe granulomatous changes, mild venous congestion, patchy bibasilar airspace opacities, right hilar prominence. calcification at the aortic knob (see full report) 03/01/18: start azithromycin 500mg IV q24h and rocephin 1g IV daily for empiric pneumonia coverage urine legionella negative urine strep pneumoniae, mycoplasma pending procalcitonin <0.05 Dr. Neves, pulmonology consulted- help appreciated HTN continue home medication cozaar 100mg PO daily continue home medication HCTZ 25mg PO daily continue home medication verapamil 240mg PO HS heart healthy 2g sodium diet continue to monitor Hx of Atrial Fibrillation Patient follows as outpatient with Dr. Kowalski, next appointment scheduled 03/17 continue home medication Xarelto 20mg PO HS Elevated ProBNP possibly secondary to COPD exacerbation will check repeat echo last echo 01/2017: LVEF normal, EF 60-65%, hypertensive heart disease, no aortic regurgitation, mild mitral regurgitation, mild tricuspid regurgitation, no pulmonary HTN, mild pulm. valve regurgitation (see full report) Prophylactic measure patient on Xarelto protonix 40mg PO daily Case discussed with Dr. Albina Sutton PGY1
--- NOTE | 2018-03-03 18:26 | CP.PCM.PN ---
Subjective - Date & Time of Evaluation Date of Evaluation: 03/03/18 Time of Evaluation: 11:15 - Subjective Subjective: Patient seen and examined at bedside. Afebrile Shortness of breath has improved, and the patient denies coughing. She reports feeling much better. Assessment and Plan: 1. COPD Exacerbation - Saturating at 97% on 2L NC - 03/02 Pro-calc <0.05 - flu negative, legionella negative - secondary to URI - Continue solumedrol - continue rocephin and zithromax - atrovent - singulair - advair - spiriva - repeat CXR Objective - Vital Signs/Intake and Output Vital Signs (last 24 hours): Temp Pulse Resp BP Pulse Ox 98.4 F 78 20 157/82 H 95 03/03/18 16:00 03/03/18 16:00 03/03/18 16:00 03/03/18 16:00 03/03/18 16:00 Intake and Output: 03/03/18 03/03/18 06:59 18:59 Intake Total 600 500 Balance 600 500 - Medications Medications: Current Medications Albuterol/Ipratropium (Duoneb 3 Mg/0.5 Mg (3 Ml) Ud) 3 ml INH RQ6 [facility] Last Admin: 03/03/18 13:00 Dose: 3 ml Hydrochlorothiazide (Hydrodiuril) 25 mg PO Q24H [facility] Last Admin: 03/03/18 12:46 Dose: 25 mg Azithromycin (Zithromax 500mg In Ns Addvantage) 500 mg in 250 mls @ 167 mls/hr IVPB Q24H [facility]IM PRN Reason: Protocol Last Admin: 03/03/18 16:49 Dose: 167 mls/hr Ceftriaxone Sodium (Rocephin Iv 1 Gm Duplex) 50 mls @ 100 mls/hr IVPB Q24H [facility]IM PRN Reason: Protocol Last Admin: 03/02/18 20:20 Dose: 100 mls/hr Losartan Potassium (Cozaar) 100 mg PO DAILY [facility] Last Admin: 03/03/18 10:34 Dose: 100 mg Methylprednisolone (Solu-Medrol) 60 mg IVP Q8H [facility] Last Admin: 03/03/18 16:49 Dose: 60 mg Montelukast Sodium (Singulair) 10 mg PO HS [facility] Last Admin: 03/02/18 22:11 Dose: 10 mg Pantoprazole Sodium (Protonix Ec Tab) 40 mg PO DAILY [facility] Last Admin: 03/03/18 10:34 Dose: 40 mg Rivaroxaban (Xarelto) 20 mg PO HS [facility] Last Admin: 03/02/18 22:10 Dose: 20 mg Saccharomyces Boulardii (Florastor) 250 mg PO BID [facility] Last Admin: 03/03/18 17:45 Dose: 250 mg Fluticasone/Salmeterol (Advair Diskus 250/50) 1 puff INH RQ12 [facility] Last Admin: 03/03/18 07:20 Dose: 1 puff Verapamil HCl (Calan Sr Tab) 240 mg PO HS [facility] Last Admin: 03/02/18 22:10 Dose: 240 mg - Labs Labs: 03/03/18 07:14 03/03/18 07:14 Assessment and Plan (1) COPD exacerbation Status: Acute
[2018-03-03] MEDS: cefTRIAXone IV 1 gm in Dextros 50 ML IVPB SCH (20:30)
[2018-03-03] MEDS: MethylPREDNISolone 40 mg Vial IVP SCH (21:00)
[2018-03-03] MEDS: Verapamil 240 mg ER Tab PO SCH (21:29)
--- NOTE | 2018-03-04 02:05 | CARD ---
APPROVED REPORT EXAM: Two-dimensional and M-mode echocardiogram with Doppler and color Doppler. INDICATION Congestive Heart Failure COPD RISK FACTORS Hypertension 2D DIMENSIONS IVSd0.9 (0.7-1.1cm)LVDd4.2 (3.9-5.9cm) PWd1.1 (0.7-1.1cm)LVDs2.9 (2.5-4.0cm) FS (%) 31.6 %LVEF (%)59.9 (>50%) M-Mode DIMENSIONS Left Atrium (MM)3.91 (2.5-4.0cm)Aortic Root2.59 (2.2-3.7cm) Aortic Cusp Exc.2.06 (1.5-2.0cm) Mitral Valve MV E Lercntgc02.5cm/sMV A Fezpdfmd79.3cm/sE/A ratio0.7 TDI E/Lateral E'0.0E/Medial E'0.0 Tricuspid Valve TR Peak Eyxhpjav908wn/sTR Peak Gr.48mmHg LEFT VENTRICLE The left ventricle is normal size. There is normal left ventricular wall thickness. Left ventricle systolic function is normal. The Ejection Fraction is 60-65%. There is normal LV segmental wall motion. The left ventricular diastolic function is abnormal. Transmitral Doppler flow pattern is Grade I-abnormal relaxation pattern. No left ventricle thrombus noted on this study. RIGHT VENTRICLE The right ventricle is normal size. The right ventricular systolic function is normal. ATRIA The left atrium size is normal. The right atrium size is normal. AORTIC VALVE The aortic valve is mildly sclerotic. The aortic valve is trileaflet. No aortic regurgitation is present. There is no aortic valvular stenosis. There is no aortic valvular vegetation. MITRAL VALVE Mitral annular calcification is mild. There is no evidence of mitral valve prolapse. There is no mitral valve stenosis. Mitral regurgitation is trace to mild. TRICUSPID VALVE The tricuspid valve is normal in structure. There is mild to moderate tricuspid regurgitation. Right ventricular systolic pressure is estimated at 40-50 mmHg. There is mild-moderate pulmonary hypertension. There is no tricuspid valve prolapse or vegetation. There is no tricuspid valve stenosis. PULMONIC VALVE The pulmonic valve is not well visualized. There is no pulmonic valvular regurgitation. GREAT VESSELS The aortic root is normal in size. The IVC collapses <50% with inspiration. PERICARDIAL EFFUSION There is no pericardial effusion. There is no pleural effusion. <Conclusion> The left ventricle is normal size. Left ventricle systolic function is normal. The Ejection Fraction is 60-65%. The left ventricular diastolic function is abnormal. Transmitral Doppler flow pattern is Grade I-abnormal relaxation pattern. The right ventricular size and systolic function is normal. The left atrium size is normal. The right atrium size is normal. Mitral regurgitation is trace to mild. There is mild to moderate tricuspid regurgitation. Right ventricular systolic pressure is estimated at 40-50 mmHg. There is mild-moderate pulmonary hypertension.
[2018-03-04] MEDS: Albuterol-Ipratrop 3 mg / 0.5 (3 ml) UD INH SCH ×3 (02:17→13:12)
[2018-03-04] MEDS: MethylPREDNISolone 40 mg Vial IVP SCH ×2 (04:12→12:24)
[2018-03-04] MEDS: Fluticasone-Salmeterol 250-50mcg Diskus INH SCH (07:26)
[2018-03-04 08:12] VITALS: BP 148/88; PULSE 67; TEMP 98.1; O2SAT 96
[2018-03-04] MEDS: Pantoprazole 40 mg EC Tab PO SCH (09:57)
[2018-03-04] MEDS: Saccharomyces Boulardi 250 mg Cap PO SCH (09:57)
--- NOTE | 2018-03-04 10:45 | RAD ---
HISTORY: pneumonia COMPARISON: 03/01/2018 FINDINGS: LUNGS: No active pulmonary disease. PLEURA: No significant pleural effusion identified, no pneumothorax apparent. CARDIOVASCULAR: Normal. OSSEOUS STRUCTURES: No significant abnormalities. VISUALIZED UPPER ABDOMEN: Normal. OTHER FINDINGS: None. IMPRESSION: No active disease.
[2018-03-04 10:59] LABS: HEMOGLOBIN 12.3 g/dL (11.0-16.0); LYMPH # 0.7 K/uL (1.0-4.3); LYMPH % 4.8 % (20.0-40.0); MEAN CORPUSCULAR HEMOGLOBIN 28.1 pg (27.0-31.0); MEAN CORPUSCULAR HGB CONC 33.8 g/dL (33.0-37.0); MEAN PLATELET VOLUME 8.3 fL (7.2-11.7); MONO # 0.4 K/uL (0.0-0.8); MONO % 3.2 % (0.0-10.0); NEUT # 12.7 K/uL (1.8-7.0); PLATELET COUNT 323 K/uL (130-400); RBC 4.37 Mil/uL (3.80-5.20); WHITE BLOOD COUNT 13.8 K/uL (4.8-10.8)
[2018-03-04 11:22] LABS: ALB/GLOB RATIO 1.2 (1.0-2.1); ALBUMIN 3.9 g/dL (3.5-5.0); ALT/SGPT 122 U/L (9-52); AST/SGOT 52 U/L (14-36); BLOOD UREA NITROGEN 37 mg/dL (7-17); CALCIUM 8.8 mg/dl (8.6-10.4); GFR AFRICAN-AMERICAN > 60; GFR NON-AFRICAN AMERICAN 54
[2018-03-04 11:29] LABS: MONOCYTE 2 % (0-10); TOTAL CELLS COUNTED 100
[2018-03-04 11:30] LABS: BURR CELLS SLIGHT; LYMPHOCYTE 4 % (20-40); NEUTROPHIL 94 % (50-75); OVALOCYTES SLIGHT; PLATELET ESTIMATE NORMAL (NORMAL)
--- NOTE | 2018-03-04 14:50 | CP.PCM.DIS ---
Provider - Provider Date of Admission: 03/01/18 16:04 Attending physician: Kyle Montemayor MD Primary care physician: Dr. Bella Consults: Dr. Neves Time Spent in preparation of Discharge (in minutes): 40 Diagnosis - Discharge Diagnosis (1) COPD exacerbation Status: Resolved (2) Atrial fibrillation with RVR Status: Chronic (3) HTN (hypertension) Status: Chronic Hospital Course - Lab Results Lab Results: Micro Results 03/01/18 14:25 Blood Blood Culture - Preliminary NO GROWTH AFTER 48 HOURS 03/01/18 14:55 Blood Blood Culture - Preliminary NO GROWTH AFTER 48 HOURS Most Recent Lab Values WBC 13.8 K/uL (4.8-10.8) H 03/04/18 10:51 RBC 4.37 Mil/uL (3.80-5.20) 03/04/18 10:51 Hgb 12.3 g/dL (11.0-16.0) 03/04/18 10:51 Hct 36.3 % (34.0-47.0) 03/04/18 10:51 MCV 83.0 fL (81.0-99.0) 03/04/18 10:51 MCH 28.1 pg (27.0-31.0) 03/04/18 10:51 MCHC 33.8 g/dL (33.0-37.0) 03/04/18 10:51 RDW 14.0 % (11.5-14.5) 03/04/18 10:51 Plt Count 323 K/uL (130-400) 03/04/18 10:51 MPV 8.3 fL (7.2-11.7) 03/04/18 10:51 Neut % (Auto) 92.0 % (50.0-75.0) H 03/04/18 10:51 Lymph % (Auto) 4.8 % (20.0-40.0) L 03/04/18 10:51 [place] % (Auto) 3.2 % (0.0-10.0) 03/04/18 10:51 Eos % (Auto) 0.0 % (0.0-4.0) 03/04/18 10:51 Baso % (Auto) 0.0 % (0.0-2.0) 03/04/18 10:51 Neut # (Auto) 12.7 K/uL (1.8-7.0) H 03/04/18 10:51 Lymph # (Auto) 0.7 K/uL (1.0-4.3) L 03/04/18 10:51 [place] # (Auto) 0.4 K/uL (0.0-0.8) 03/04/18 10:51 Eos # (Auto) 0.0 K/uL (0.0-0.7) 03/04/18 10:51 Baso # (Auto) 0.0 K/uL (0.0-0.2) 03/04/18 10:51 Neutrophils % (Manual) 94 % (50-75) H 03/04/18 10:51 Band Neutrophils % 2 % (0-2) 03/03/18 07:14 Lymphocytes % (Manual) 4 % (20-40) L 03/04/18 10:51 Monocytes % (Manual) 2 % (0-10) 03/04/18 10:51 Toxic Granulation Present 03/03/18 07:14 Platelet Estimate Normal (NORMAL) 03/04/18 10:51 Large Platelets Present 03/03/18 07:14 Polychromasia Slight 03/03/18 07:14 Hypochromasia (manual) Slight 03/03/18 07:14 Anisocytosis (manual) Slight 03/03/18 07:14 Ovalocytes Slight 03/04/18 10:51 Pender Cells Slight 03/04/18 10:51 Sodium 139 mmol/L (132-148) 03/04/18 10:51 Potassium 3.4 mmol/L (3.6-5.2) L 03/04/18 10:51 Chloride 91 mmol/L (98-107) L 03/04/18 10:51 Carbon Dioxide 33 mmol/L (22-30) H 03/04/18 10:51 Anion Gap 19 (10-20) 03/04/18 10:51 BUN 37 mg/dL (7-17) H 03/04/18 10:51 Creatinine 1.0 mg/dL (0.7-1.2) 03/04/18 10:51 Est GFR ( Amer) > 60 03/04/18 10:51 Est GFR (Non-Af Amer) 54 03/04/18 10:51 Random Glucose 238 mg/dL (65-105) H 03/04/18 10:51 Calcium 8.8 mg/dl (8.6-10.4) 03/04/18 10:51 Phosphorus 3.2 mg/dL (2.5-4.5) 03/04/18 10:51 Magnesium 2.3 mg/dL (1.6-2.3) 03/04/18 10:51 Total Bilirubin 0.4 mg/dL (0.2-1.3) 03/04/18 10:51 AST 52 U/L (14-36) H D 03/04/18 10:51 ALT 122 U/L (9-52) H D 03/04/18 10:51 Alkaline Phosphatase 48 U/L (38-126) 03/04/18 10:51 Troponin I 0.0270 ng/mL (0.00-0.120) 03/01/18 14:35 NT-Pro-B Natriuret Pep 1530 pg/mL (0-900) H 03/01/18 14:35 Total Protein 7.0 g/dL (6.3-8.3) 03/04/18 10:51 Albumin 3.9 g/dL (3.5-5.0) 03/04/18 10:51 Globulin 3.2 gm/dL (2.2-3.9) 03/04/18 10:51 Albumin/Globulin Ratio 1.2 (1.0-2.1) 03/04/18 10:51 Procalcitonin < 0.05 NG/ML (0.19-0.49) L 03/02/18 11:35 Influenza Typ A,B (EIA) Negative for flu a/b (NEGATIVE) 03/01/18 14:35 Ur L.pneumophila Ag Negative (NEGATIVE) 03/01/18 18:00 - Hospital Course Hospital Course: "CC: "I had trouble breathing" Patient is a 72 year old female with PMHx significant for COPD who presents to the ED with complaint of difficulty breathing since Saturday. Patient states that on Saturday she had some nasal congestion but denied cough, fever, or chills. Patient states she normally has a home visiting nurse visit her every two months and her normal visit day was also this past Saturday. Home nurse prescribed patient Prednisone 20mg and Augmentin and told patient to go to the ER if there was no improvement in symptoms by Saturday02/28/18. Patient states she normally uses nebulizer treatments four times a day and that his past and Saturday she used five treatments per day. Patient states that she was having difficulty speaking in full sentences. She reports sleeping on two pillows at night and sleeps sitting up. She reports anxiety with laying flat. Patient denies chest pain, cough, palpitations, lightheadedness or dizziness, nausea, vomiting, diarrhea or constipation, leg swelling. She denies recent travel or sick contacts." Patient's blood pressure was elevated at 159/88 in ED as well. Salumedrol 120mg IVP was administered in ED and patient was admitted to floor for COPD exacerbation. Chest x-ray showed biapical pleural thickening with upper lobe granulomatous changes, mild venous congestion, patchy bibasilar airspace opacities, right hilar prominence, and calcification at the aortic knob. Dr. Neves (pulmonology) was consulted. Dr. Neves diagnosed patient with COPD exacerbation secondary to upper respiratory infection. Patient was negative for influenza A,B, as well as legionella pneumophila antigen. Patient's blood cultures were negative for growth after 48 hours. Patient was treated with Duoneb 3 ml Q6hr, Azithromycin 500 mg daily, ceftriaxone 1 gm daily, hydrochlorothiazide 25mg po daily, losartan 100 mg po daily, Solu-medrol 40mg IVP Q8hr, Montelukast 10 mg po HS, protonix 40 mg daily , xarelto 20mg HS, florastor 250mg BID, advair 1 putt Q12, verapamil 240mg HS and 2 L O2 by nasal cannula continuously. Upon discharge, Dr. Neves ordered a repeat chest xray which showed no active disease. After a three day admission (03/01/18-03/04/18) patient's respiration had drastically improved. Her blood pressure had stabilized at 145/79. She was advised to transition into pulmonary rehab to aid patient in breathing techniques which she denied. Patient was discharged on her regular home medications as well as Prednisone taper, Azithromycin, and Cefuroxime. Patient follow up with PMD in 1 week. Patient to return to ED if symptoms return. This is a summary of the patient's hospital course, please see chart for full details. Discharge Exam - Head Exam Head Exam: ATRAUMATIC, NORMOCEPHALIC - Eye Exam Eye Exam: EOMI, Normal appearance - ENT Exam ENT Exam: Mucous Membranes Moist - Respiratory Exam Respiratory Exam: Decreased Breath Sounds. absent: Wheezes, Respiratory Distress - Cardiovascular Exam Cardiovascular Exam: +S1, +S2 - GI/Abdominal Exam GI & Abdominal Exam: Normal Bowel Sounds, Soft. absent: Tenderness - Extremities Exam Extremities exam: normal inspection - Neurological Exam Neurological exam: Alert, Oriented x3 - Psychiatric Exam Psychiatric exam: Normal Affect, Normal Mood - Skin Skin Exam: Normal Color, Warm Discharge Plan - Discharge Medications Prescriptions: Azithromycin 500 mg PO DAILY #7 tablet Cefuroxime Axetil [Cefuroxime] 500 mg PO BID 7 Days #14 tablet - Follow Up Plan Condition: FAIR Disposition: HOME/ ROUTINE Instructions: Azithromycin (Systemic), Heart Failure, Adult (DC), Exacerbation of COPD (DC), Cefuroxime, Prednisone Additional Instructions: Patient stable for discharge as per Dr. Montemayor. Patient to take Azithromycin 500mg po daily for 7 days. Patient to also take Cefuroxime 500mg po bid. Patient to take Prednisone taper. Patient to follow up with Dr. Bella within one week for follow up. Patient to return to ED if symptoms worsen. Referrals: Bright Neves MD [Staff Provider] -
== END 2018-03-04 14:43 | disposition home or self-care (01) | DRG 190 ==
LOC: C.ER 13:39 → C.9E 16:04 → C.3T 17:48
PROVIDERS: ADMIT Internal Medicine; ATTEND Internal Medicine
DX: J44.1 Chronic obstructive pulmonary disease with (acute) exacerbation (principal); J18.9 Pneumonia, unspecified organism; D17.9 Benign lipomatous neoplasm, unspecified; I11.9 Hypertensive heart disease without heart failure; J44.0 Chronic obstructive pulmonary disease with (acute) lower respiratory infection; I48.91 Unspecified atrial fibrillation; Z79.899 Other long term (current) drug therapy; Z82.3 Family history of stroke; Z85.72 Personal history of non-Hodgkin lymphomas; Z87.891 Personal history of nicotine dependence; Z79.01 Long term (current) use of anticoagulants; Z92.21 Personal history of antineoplastic chemotherapy; Z99.81 Dependence on supplemental oxygen

== ENCOUNTER 2018-05-19 13:00 | Inpatient (IN) | payer MEDICARE ==
--- NOTE | 2018-05-19 13:36 | C.PDOC ---
History Of Present Illness 72 y/o female with a PMHx of COPD, HTN, and atrial fibrillation presents to the ED with a complaint of shortness of breath for the last several days. Patient states symptoms worsened today, prompting ER visit. Patient is on home O2 3L by [place]; she just finished 5 day course of Prednisone 20mg given to her by her visiting nurse. She reports only minimal transient improvement in symptoms. Patient denies fever, productive cough, chest pain, palpitations, abdominal pain , nausea/vomiting/diarrhea. Time Seen by Provider: 05/19/18 13:26 Chief Complaint (Nursing): Shortness Of Breath History Per: Patient History/Exam Limitations: no limitations Onset/Duration Of Symptoms: Days (several days), Worse Since (today) Current Symptoms Are (Timing): Still Present Current Respiratory Medications: See Home Med List Severity: Moderate Associated Symptoms: denies: Fever, Productive Cough Recent travel outside of the [place] States: No Past Medical History Reviewed: Historical Data, Nursing Documentation, Vital Signs Vital Signs: Last Vital Signs Temp 97.4 F L 05/21/18 07:25 Pulse 80 05/21/18 07:25 Resp 20 05/21/18 07:25 BP 120/76 05/21/18 07:25 Pulse Ox 100 05/21/18 07:25 - Medical History PMH: Asthma, Atrial Fibrillation, Bronchitis, COPD (on home O2), HTN Surgical History: No Surg Hx - [facility] Procedures ASSISTANCE WITH RESPIRATORY VENTILATION, >96 HRS, CPAP (11/15/15) INFLUENZA VACCINATION (12/11/14) VACCINATION NEC (12/11/14) Family History: States: No Known Family Hx - Social History Hx Tobacco Use: No (Quit) Hx Alcohol Use: No Hx Substance Use: No - Immunization History Hx Tetanus Toxoid Vaccination: No Hx Influenza Vaccination: Yes Hx Pneumococcal Vaccination: Yes (2014) Review Of Systems Constitutional: Negative for: Fever, Chills Cardiovascular: Negative for: Chest Pain, Palpitations Respiratory: Positive for: Shortness of Breath. Negative for: Cough Gastrointestinal: Negative for: Nausea, Vomiting, Abdominal Pain, Diarrhea Genitourinary: Negative for: Dysuria Skin: Negative for: Rash Physical Exam - Physical Exam Appears: Well, Non-toxic, Other (audibly wheezing; speaking in short sentences, in mild respiratory distress) Skin: Normal Color, Warm, Dry Head: Normacephalic Oral Mucosa: Moist Chest: Symmetrical Cardiovascular: Rhythm Regular Respiratory: Accessory Muscle Use (mild), No Rales, No Rhonchi, Wheezing ( expiratory wheezing bilaterally ) Gastrointestinal/Abdominal: Normal Exam, Bowel Sounds, Soft, No Tenderness Extremity: Normal ROM, No Pedal Edema, No Calf Tenderness Pulses: Left Dorsalis Pedis: Normal, Right Dorsalis Pedis: Normal Neurological/Psych: Oriented x3 ED Course And Treatment - Laboratory Results Result Diagrams: 05/21/18 08:22 05/20/18 08:43 ECG: Interpreted By Me, Viewed By Me ECG Rhythm: Sinus Rhythm ECG Interpretation: Abnormal Interpretation Of ECG: Occasional PACs; normal axis. T wave flattening in I, II , aVL. No acute ST changes. Rate From EC (bpm) O2 Sat by Pulse Oximetry: 96 - Radiology CXR: Interpreted by Me, Viewed By Me, Read By Radiologist CXR Interpretation: Yes: No Acute Disease, Other (No active disease. No acute/ significant interval changes.) Progress Note: Blood work, EKG, CXR ordered and reviewed. Patient given IV solumedrol and nebulizer treatments. Patient without rales, leg edema or vascular congestion on CXR - no Lasix given despite elevation in BNP, clinically patient is having COPD exacerbation. Reevaluation Time: 16:45 Reassessment Condition: Improved (Patient reports only minimal improvement in her dyspnea. On exam, still has expiratpory wheezing and coarse breath sounds B /L - will need obs tele for COPD exacerbation.) - Physician Consult Information Physician Contacted: Kyle Montemayor Outcome Of Conversation: Discussed patient with hospitalist, agrees with obs telemetry for COPD exacerbation, dyspnea. Consult for Dr. Sahu (patient 's licensed tax consultant) entered, pending call back. Medical Decision Making Medical Decision Making: differential diagnoses considered: copd/asthma exacerbation, CHF exacerbation, [place]/ACS, pneumonia, bronchitis, PE, viral URI, anemia Disposition - Disposition Disposition: HOSPITALIZED Disposition Time: 16:51 Condition: FAIR - Clinical Impression Clinical Impression: COPD exacerbation, Dyspnea - Scribe Statement The provider has reviewed the documentation as recorded by the Scribe Catrina Sebastian All medical record entries made by the Scribe were at my direction and personally dictated by me. I have reviewed the chart and agree that the record accurately reflects my personal performance of the history, physical exam, medical decision making, and the department course for this patient. I have also personally directed, reviewed, and agree with the discharge instructions and disposition. Decision To Admit - Pt Status Changed To: Hospital Disposition Of: Observation - . Bed Request Type: Telemetry Admitting Physician: Kyle Montemayor Patient Diagnosis: COPD exacerbation, Dyspnea
[2018-05-19] MEDS ORDERED: Albuterol 0.083% Inhal Sol (2.5 mg/3 mL) UD IH STA (13:40)
[2018-05-19] MEDS ORDERED: Albuterol 0.083% Inhal Sol (2.5 mg/3 mL) UD ONE ×2 (13:47→21:05)
[2018-05-19 14:01] LABS: BASO # 0.1 K/uL (0.0-0.2); BASO % 0.7 % (0.0-2.0); EOS % 0.3 % (0.0-4.0); HEMOGLOBIN 12.2 g/dL (11.0-16.0); LYMPH # 0.8 K/uL (1.0-4.3); LYMPH % 9.1 % (20.0-40.0); MEAN CELL VOLUME 84.3 fL (81.0-99.0); MEAN CORPUSCULAR HEMOGLOBIN 28.3 pg (27.0-31.0); MEAN CORPUSCULAR HGB CONC 33.6 g/dL (33.0-37.0); MEAN PLATELET VOLUME 8.1 fL (7.2-11.7); MONO # 0.2 K/uL (0.0-0.8); MONO % 2.4 % (0.0-10.0); NEUT % 87.5 % (50.0-75.0); PLATELET COUNT 342 K/uL (130-400); RBC 4.31 Mil/uL (3.80-5.20); RED CELL DISTRIBUTION WIDTH 14.3 % (11.5-14.5); WHITE BLOOD COUNT 9.2 K/uL (4.8-10.8)
[2018-05-19 14:09] LABS: INR 1.6; PROTHROMBIN TIME 17.3 SECONDS (9.7-12.2)
[2018-05-19 14:28] LABS: B-TYPE NATRIURETIC PEPTIDE 2760 pg/mL (0-900); CK-MB 2.39 ng/mL (0.0-3.38)
[2018-05-19 14:31] LABS: BANDS 1 % (0-2); LYMPHOCYTE 11 % (20-40); METAMYELOCYTE 1 % (0-0); MONOCYTE 3 % (0-10); NEUTROPHIL 83 % (50-75); PLATELET ESTIMATE NORMAL (NORMAL); REACTIVE LYMPHOCYTES 1 % (0-0); TOTAL CELLS COUNTED 100
[2018-05-19 14:32] LABS: OVALOCYTES SLIGHT
--- NOTE | 2018-05-19 15:02 | RAD ---
PROCEDURE: CHEST RADIOGRAPH, 1 VIEW HISTORY: SOB COMPARISON: 03/04/2018 FINDINGS: LUNGS: Clear. PLEURA: No pneumothorax or pleural fluid seen. CARDIOVASCULAR: No radiographic findings to suggest acute or significant cardiovascular disease. OSSEOUS STRUCTURES: No significant abnormalities. VISUALIZED UPPER ABDOMEN: Normal. OTHER FINDINGS: None. IMPRESSION: No active disease. No acute/significant interval changes.
[2018-05-19 15:20] LABS: ALB/GLOB RATIO 1.5 (1.0-2.1); ALBUMIN 4.5 g/dL (3.5-5.0); ALT/SGPT 18 U/L (9-52); AST/SGOT 25 U/L (14-36); BLOOD UREA NITROGEN 21 mg/dL (7-17); CALCIUM 10.7 mg/dl (8.6-10.4); GFR AFRICAN-AMERICAN > 60; GFR NON-AFRICAN AMERICAN > 60
[2018-05-19] MEDS ORDERED: Albuterol-Ipratrop 3 mg / 0.5 (3 ml) UD INH STA (15:43)
[2018-05-19] MEDS ORDERED: Albuterol-Ipratrop 3 mg / 0.5 (3 ml) UD ONE (15:51)
[2018-05-19] MEDS ORDERED: Albuterol 0.083% Inhal Sol (2.5 mg/3 mL) UD INH ONE (20:59)
--- NOTE | 2018-05-19 21:06 | CP.PCM.HP ---
<HungMica S. - Last Filed: 05/20/18 00:53> History of Present Illness - History of Present Illness History of Present Illness: Code Status: DNR/DNI Advanced Directive: denies POA: Kiya Kam (daughter) # [phone] CC: "shortness of breath" HPI: 72 year old female with past medical history of COPD who presents to the ER with complaint of difficulty breathing since last week. She states her visiting nurse started her on prednisone 20mg daily for 5 days last week and she completed the course today. She states the prednisone did not help her shortness of breath. She states her shortness of breath has not improved or progressed since last week. She states she is usually able to walk from her bed to the bathroom without gasping for air and for a week she finds herself gasping for air. Patient states that she sometimes has difficulty speaking in full sentences. She reports sleeping on three pillows at night and sleeps sitting up. Patient denies chest pain, cough, palpitations, lightheadedness or dizziness, nausea, vomiting, diarrhea or constipation, leg swelling, changes in weight, dysuria. She denies recent travel or sick contacts. PMD: Dr. Francisco Reactor Service Operator: Dr. Sahu Wrapper And Preserver: Dr. Kowalski Past Medical History: COPD on 3L O2 continuously for past 2 years, HTN, lymphoma s/p chemo and surgical resection 1989, atrial fibrillation, seasonal/ environmental allergies; bilateral cataracts Past Medical History: lymphoma left groin, lipoma removal from scalp, Left breast cyst Medications: prednisone 20mg (completed 5 day course last dose 05/19/18); Dulera , albuterol neb 4x daily, singulair 10mg HS, cozaar 100mg daily, HCTZ 25mg daily , verapamil 240mg, spiriva 18mcg, xarelto 20mg Allergies: NKDA Family History: two sisters from lung cancer, one sister alive with lung cancer, father age 57- had HTN and stroke, mother had diabetes Social History: former 1ppd smoker for 50 years, quit 4 years ago; denies alcohol and illicitHPI: drugs, lives with daughter, ambulates at home without assistive devices; has a visiting nurse every 2 months Present on Admission - Present on Admission Any Indicators Present on Admission: No Review of Systems - Constitutional Constitutional: absent: Chills, Fever - EENT Eyes: absent: Blurred Vision, Change in Vision - Cardiovascular Cardiovascular: Dyspnea, Dyspnea on Exertion. absent: Chest Pain, Leg Edema, Palpitations, Pedal Edema - Respiratory Respiratory: Dyspnea, Dyspnea on Exertion. absent: Cough - Gastrointestinal Gastrointestinal: absent: Constipation, Diarrhea, Nausea, Vomiting - Genitourinary Genitourinary: absent: Dysuria, Hematuria - Musculoskeletal Musculoskeletal: absent: Numbness, Tingling - Neurological Neurological: absent: Dizziness Past Patient History - Infectious Disease Hx of Infectious Diseases: None - Past Medical History & Family History Past Medical History?: Yes - Past Social History Smoking Status: Former Smoker - CARDIAC Hx Atrial Fibrillation: Yes Hx Hypertension: Yes - PULMONARY Hx Asthma: Yes Hx Bronchitis: Yes Hx Chronic Obstructive Pulmonary Disease (COPD): Yes (on home O2) - NEUROLOGICAL Hx Neurological Disorder: No - HEENT Hx HEENT Problems: Yes Hx Cataracts: Yes - RENAL Hx Chronic Kidney Disease: No - ENDOCRINE/METABOLIC Hx Endocrine Disorders: No - HEMATOLOGICAL/ONCOLOGICAL Hx Blood Disorders: Yes - INTEGUMENTARY Hx Dermatological Problems: No - MUSCULOSKELETAL/RHEUMATOLOGICAL Hx Musculoskeletal Disorders: No Hx Falls: No - GASTROINTESTINAL Hx Gastrointestinal Disorders: No - GENITOURINARY/GYNECOLOGICAL Hx Genitourinary Disorders: No - PSYCHIATRIC Hx Substance Use: No - SURGICAL HISTORY Hx Surgeries: Yes Other/Comment: multiple removal of lymphoma-left groin(1989) - ANESTHESIA Hx Anesthesia: Yes Hx Anesthesia Reactions: No Hx Malignant Hyperthermia: No Meds Allergies/Adverse Reactions: Allergies Allergy/AdvReac Type Severity Reaction Status Date / Time No Known Allergies Allergy Verified 05/19/18 13:11 Physical Exam - Constitutional Appears: Chronically Ill - Head Exam Head Exam: ATRAUMATIC, NORMAL INSPECTION - Eye Exam Eye Exam: EOMI, Normal appearance, PERRL Pupil Exam: NORMAL ACCOMODATION - ENT Exam ENT Exam: Mucous Membranes Dry - Respiratory Exam Respiratory Exam: Decreased Breath Sounds, Wheezes - Cardiovascular Exam Cardiovascular Exam: Irregular Rhythm. absent: JVD - GI/Abdominal Exam GI & Abdominal Exam: Normal Bowel Sounds, Soft. absent: Tenderness - Extremities Exam Extremities exam: Positive for: normal capillary refill, normal inspection, pedal pulses present. Negative for: joint swelling, pedal edema, tenderness - Neurological Exam Neurological exam: Alert, CN II-XII Intact, Oriented x3 - Psychiatric Exam Psychiatric exam: Normal Affect, Normal Mood - Skin Skin Exam: Normal Color Results - Vital Signs Recent Vital Signs: Last Vital Signs Temp 98.6 F 05/19/18 21:04 Pulse 68 05/19/18 21:04 Resp 20 05/19/18 21:04 BP 148/71 05/19/18 21:04 Pulse Ox 99 05/19/18 21:04 - Labs Result Diagrams: 05/19/18 13:54 05/19/18 13:54 Labs: Laboratory Results - last 24 hr 05/19/18 05/19/18 05/19/18 13:54 13:54 13:54 WBC 9.2 RBC 4.31 Hgb 12.2 Hct 36.3 MCV 84.3 MCH 28.3 MCHC 33.6 RDW 14.3 Plt Count 342 MPV 8.1 Neut % (Auto) 87.5 H Lymph % (Auto) 9.1 L [place] % (Auto) 2.4 Eos % (Auto) 0.3 Baso % (Auto) 0.7 Neut # (Auto) 8.0 H Lymph # (Auto) 0.8 L [place] # (Auto) 0.2 Eos # (Auto) 0.0 Baso # (Auto) 0.1 Neutrophils % (Manual) 83 H Band Neutrophils % 1 Lymphocytes % (Manual) 11 L Reactive Lymphs % 1 H Monocytes % (Manual) 3 Metamyelocytes % 1 H Platelet Estimate Normal Ovalocytes Slight PT 17.3 H INR 1.6 APTT 47 H Sodium 143 Potassium 5.1 Chloride 92 L Carbon Dioxide 39 H Anion Gap 17 BUN 21 H Creatinine 0.9 Est GFR ( Amer) > 60 Est GFR (Non-Af Amer) > 60 Random Glucose 130 H Calcium 10.7 H Total Bilirubin 0.7 AST 25 ALT 18 Alkaline Phosphatase 63 Total Creatine Kinase 41 CK-MB (Mass) 2.39 Troponin I 0.0360 NT-Pro-B Natriuret Pep 2760 H Total Protein 7.6 Albumin 4.5 Globulin 3.1 Albumin/Globulin Ratio 1.5 Assessment & Plan - Assessment and Plan (Free Text) Assessment: Dyspnea secondary to possible COPD Exacerbation - Patient received solumedrol 125 in the ER, - continue home medication advair 250/50 q12h - continue home medication spiriva 18mcg inhaled daily - continue home medication singulair 10mg PO HS - start duonebs q4h scheduled for 24 hours, then q6prn after - Trop Negative; f/u trop x2 - Images: * chest xray: * CT chest * CT Neck: - f/u ABG will check urine legionella, urine strep pneumoniae, mycoplasma - Dr. Sahu, pulmonology consulted--> help appreciated History of HTN - continue home medication cozaar 100mg PO daily - HOLD home medication HCTZ 25mg PO daily - continue home medication verapamil 240mg PO HS - heart healthy 2g sodium diet - continue to monitor History of Atrial Fibrillation - Patient follows as outpatient with Dr. Kowalski, next appointment scheduled - continue home medication Xarelto 20mg PO HS Elevated ProBNP - possibly secondary to COPD exacerbation - last echo 03/01/2018: LVEF 59.9%; left ventricular systolic function is normal; mild-moderate pulmonary hypertension. see full report) Prophylactic measure - patient on Xarelto 20mg PO HS - GI prophylaxis not indicated - Physical Therapy Eval and Treat - Head Elevation 45 degrees - Palliative Consult: COURTNEY <Corey Gipson P - Last Filed: 05/20/18 06:45> Results - Vital Signs Recent Vital Signs: Last Vital Signs Temp 97.9 F 05/20/18 00:00 Pulse 77 05/20/18 02:46 Resp 20 05/20/18 00:00 BP 145/80 05/20/18 00:00 Pulse Ox 98 05/20/18 02:00 - Labs Result Diagrams: 05/19/18 13:54 05/19/18 13:54 Labs: Laboratory Results - last 24 hr 05/19/18 05/19/18 05/19/18 13:54 13:54 13:54 WBC 9.2 RBC 4.31 Hgb 12.2 Hct 36.3 MCV 84.3 MCH 28.3 MCHC 33.6 RDW 14.3 Plt Count 342 MPV 8.1 Neut % (Auto) 87.5 H Lymph % (Auto) 9.1 L [place] % (Auto) 2.4 Eos % (Auto) 0.3 Baso % (Auto) 0.7 Neut # (Auto) 8.0 H Lymph # (Auto) 0.8 L [place] # (Auto) 0.2 Eos # (Auto) 0.0 Baso # (Auto) 0.1 Neutrophils % (Manual) 83 H Band Neutrophils % 1 Lymphocytes % (Manual) 11 L Reactive Lymphs % 1 H Monocytes % (Manual) 3 Metamyelocytes % 1 H Platelet Estimate Normal Ovalocytes Slight PT 17.3 H INR 1.6 APTT 47 H Sodium 143 Potassium 5.1 Chloride 92 L Carbon Dioxide 39 H Anion Gap 17 BUN 21 H Creatinine 0.9 Est GFR ( Amer) > 60 Est GFR (Non-Af Amer) > 60 Random Glucose 130 H Calcium 10.7 H Total Bilirubin 0.7 AST 25 ALT 18 Alkaline Phosphatase 63 Total Creatine Kinase 41 CK-MB (Mass) 2.39 Troponin I 0.0360 NT-Pro-B Natriuret Pep 2760 H Total Protein 7.6 Albumin 4.5 Globulin 3.1 Albumin/Globulin Ratio 1.5 05/19/18 22:21 WBC RBC Hgb Hct MCV MCH MCHC RDW Plt Count MPV Neut % (Auto) Lymph % (Auto) Coryell % (Auto) Eos % (Auto) Baso % (Auto) Neut # (Auto) Lymph # (Auto) Cory[place] # (Auto) Eos # (Auto) Baso # (Auto) Neutrophils % (Manual) Band Neutrophils % Lymphocytes % (Manual) Reactive Lymphs % Monocytes % (Manual) Metamyelocytes % Platelet Estimate Ovalocytes PT INR APTT Sodium Potassium Chloride Carbon Dioxide Anion Gap BUN Creatinine Est GFR ( Amer) Est GFR (Non-Af Amer) Random Glucose Calcium Total Bilirubin AST ALT Alkaline Phosphatase Total Creatine Kinase CK-MB (Mass) Troponin I 0.0330 NT-Pro-B Natriuret Pep Total Protein Albumin Globulin Albumin/Globulin Ratio Attending/Attestation - Attestation I have personally seen and examined this patient.: Yes I have fully participated in the care of the patient.: Yes I have reviewed all pertinent clinical information: Yes Notes (Text): 05/20/18 06:41 History of COPD on home O2 3 lit all the time, sob has not improved after out patient oral prednisone of 20mg daily x5 days, hoarse voice and some expiratory laryangeal noise. Elevated serum bicarb either from hctz vs co2 retention need blood ph venous or arterial, patient declined last night will try this am Afib controlled on xeralto, h/o pulm htn DNR/DNI as d/w the patient and daughter Plan Systemic steroids Doxycycline pulmicort, duonebs, o2 CT of neck and chest ordered but patient declined last night will try this am See orders for detail.
[2018-05-19] MEDS ORDERED: Iodixanol 320 mg/ml 150 ml Bottle IV ONE (22:11)
[2018-05-20] MEDS: Albuterol-Ipratrop 3 mg / 0.5 (3 ml) UD INH SCH ×7 (01:52→20:02)
[2018-05-20] MEDS ORDERED: MethylPREDNISolone 40 mg Vial IVP SCH (07:00)
[2018-05-20] MEDS: Tiotropium 18 mcg Cap For Inhalation INH SCH (07:21)
[2018-05-20] MEDS ORDERED: Fluticasone-Salmeterol 250-50mcg Diskus INH SCH (08:00)
[2018-05-20 08:48] LABS: HEMOGLOBIN 11.8 g/dL (11.0-16.0); MEAN CORPUSCULAR HEMOGLOBIN 28.1 pg (27.0-31.0); MEAN CORPUSCULAR HGB CONC 33.4 g/dL (33.0-37.0); MEAN PLATELET VOLUME 8.4 fL (7.2-11.7); RBC 4.19 Mil/uL (3.80-5.20); RED CELL DISTRIBUTION WIDTH 14.2 % (11.5-14.5); WHITE BLOOD COUNT 11.2 K/uL (4.8-10.8)
--- NOTE | 2018-05-20 08:52 | CP.PCM.PN ---
<Thomas Hernandez - Last Filed: 05/20/18 15:05> Subjective - Date & Time of Evaluation Date of Evaluation: 05/20/18 Time of Evaluation: 08:39 - Subjective Subjective: PGY-[address] Luu. No acute events noted overnight. Patient's daughter at bedside as well. Patient stated her breathing had improved but still needs the NC. She stated she refused CT chest/neck because she couldn't lay flat due to sob. Refused abg because didn't want to get stuck with needle. Stated she had cough with phlegm green/yellow for past few days. Denied chest pain, abdominal pain, fevers. Objective - Vital Signs/Intake and Output Vital Signs (last 24 hours): Temp Pulse Resp BP Pulse Ox 97.6 F 72 20 156/81 H 100 05/20/18 07:35 05/20/18 07:35 05/20/18 07:35 05/20/18 07:35 05/20/18 07:35 - Medications Medications: Current Medications Albuterol/Ipratropium (Duoneb 3 Mg/0.5 Mg (3 Ml) Ud) 3 ml INH RQ4 [facility] Last Admin: 05/20/18 07:21 Dose: 3 ml Doxycycline Hyclate (Doryx) 100 mg PO Q12H [facility] PRN Reason: Protocol Losartan Potassium (Cozaar) 100 mg PO DAILY [facility] Methylprednisolone (Solu-Medrol) 40 mg IVP Q12H [facility] Last Admin: 05/20/18 08:25 Dose: 40 mg Montelukast Sodium (Singulair) 10 mg PO HS [facility] Last Admin: 05/19/18 22:22 Dose: 10 mg Rivaroxaban (Xarelto) 20 mg PO HS [facility] Last Admin: 05/19/18 22:22 Dose: 20 mg Fluticasone/Salmeterol (Advair Diskus 250/50) 1 puff INH RQ12 [facility] Last Admin: 05/20/18 07:46 Dose: 1 puff Tiotropium [place] (Spiriva) 18 mcg INH RQ24 [facility] Last Admin: 05/20/18 07:21 Dose: 18 mcg Verapamil HCl (Calan Sr Tab) 240 mg PO DAILY [facility] - Labs Labs: 05/19/18 13:54 05/19/18 13:54 PT 17.3 SECONDS (9.7-12.2) H 05/19/18 13:54 INR 1.6 05/19/18 13:54 APTT 47 SECONDS (21-34) H 05/19/18 13:54 - Additional Findings Additional findings: - Constitutional Appears: Chronically Ill - Head Exam Head Exam: ATRAUMATIC, NORMAL INSPECTION - Eye Exam Eye Exam: EOMI, Normal appearance, PERRL Pupil Exam: NORMAL ACCOMODATION - ENT Exam ENT Exam: Mucous Membranes Moist - Respiratory Exam Respiratory Exam: Decreased Breath Sounds, Wheezes bilaterally, bibasaler rales - Cardiovascular Exam Cardiovascular Exam: Irregular Rhythm. absent: JVD - GI/Abdominal Exam GI & Abdominal Exam: Normal Bowel Sounds, Soft. absent: Tenderness - Extremities Exam Extremities exam: Positive for: normal capillary refill, normal inspection, pedal pulses present. Negative for: joint swelling, pedal edema, tenderness - Neurological Exam Neurological exam: Alert, CN II-XII Intact, Oriented x3 - Psychiatric Exam Psychiatric exam: Normal Affect, Normal Mood - Skin Skin Exam: Normal Color Assessment and Plan - Assessment and Plan (Free Text) Assessment: Dyspnea secondary to possible COPD Exacerbation - Patient received solumedrol 125 in the ER, - Trop Negative x2; f/u trop x1 - patient refused - f/u ABG, patient refused - will check urine legionella, urine strep pneumoniae, mycoplasma, blood cx - Dr. Sahu, pulmonology consulted--> help appreciated * Patient has outpatient appt for 05/29/2018 Imaging: F/U CTA Chest - patient declined, will try again Meds: - continue home medication advair 250/50 q12h - continue home medication spiriva 18mcg inhaled daily - continue home medication singulair 10mg PO HS - start doxycycline 100mg PO BID (started 05/20) - start florastor 250mg PO BID - start duonebs q4h scheduled for 24 hours, then q6prn after - start methylprednisolone 40mg IVP Q12H - start mucomyst 20% 4ml INH Q6H Hoarse voice and some Expiratory Laryangeal Noise F/U CT neck soft tissue w/ contrast - patient declined, will try again History of HTN - continue home medication cozaar 100mg PO daily - HOLD home medication HCTZ 25mg PO daily due to elevated serum bicarb - continue home medication verapamil 240mg PO HS - heart healthy 2g sodium diet - continue to monitor History of Atrial Fibrillation - Patient follows as outpatient with Dr. Campos, seen last month - continue home medication Xarelto 20mg PO HS Diastolic CHF - Elevated ProBNP 2760, elevated from 02/2018 1530 - CXR shows some congestion, phrenic angles blunted - last echo 03/01/2018: LVEF 60%; left ventricular diastolic function is abnormal. Mild-moderate pulmonary hypertension - start lasix 20mg IV QD (not on home lasix/diuretic due to potassium being low when last seen by dr campos last month, as per patient) - cont home med cozaar 100mg po qd - not on BB due to severe COPD - on xarelto Prophylactic measure - patient on Xarelto 20mg PO HS - GI prophylaxis not indicated - Physical Therapy Eval and Treat - Head Elevation 45 degrees - Palliative Consult: POLST in chart - patient is DNR/DNI - PT/OT eval <Jamilah Luu V - Last Filed: 05/20/18 15:35> Objective - Vital Signs/Intake and Output Vital Signs (last 24 hours): Temp Pulse Resp BP Pulse Ox 97.6 F 70 20 156/81 H 98 05/20/18 07:35 05/20/18 08:00 05/20/18 07:35 05/20/18 07:35 05/20/18 07:56 - Medications Medications: Current Medications Acetylcysteine (Acetylcysteine 20%) 4 ml INH Q6H [facility] Albuterol/Ipratropium (Duoneb 3 Mg/0.5 Mg (3 Ml) Ud) 3 ml INH RQ4 [facility] Last Admin: 05/20/18 11:14 Dose: 3 ml Doxycycline Hyclate (Doryx) 100 mg PO Q12H [facility] PRN Reason: Protocol Last Admin: 05/20/18 08:24 Dose: 100 mg Furosemide (Lasix) 20 mg IVP DAILY [facility] Losartan Potassium (Cozaar) 100 mg PO DAILY [facility] Last Admin: 05/20/18 10:44 Dose: 100 mg Methylprednisolone (Solu-Medrol) 40 mg IVP Q12H [facility] Last Admin: 05/20/18 08:25 Dose: 40 mg Montelukast Sodium (Singulair) 10 mg PO HS [facility] Last Admin: 05/19/18 22:22 Dose: 10 mg Rivaroxaban (Xarelto) 20 mg PO HS [facility] Last Admin: 05/19/18 22:22 Dose: 20 mg Saccharomyces Boulardii (Florastor) 250 mg PO BID [facility] Last Admin: 05/20/18 10:44 Dose: 250 mg Fluticasone/Salmeterol (Advair Diskus 250/50) 1 puff INH RQ12 [facility] Last Admin: 05/20/18 07:46 Dose: 1 puff Tiotropium [place] (Spiriva) 18 mcg INH RQ24 [facility] Last Admin: 05/20/18 07:21 Dose: 18 mcg Verapamil HCl (Calan Sr Tab) 240 mg PO DAILY [facility] Last Admin: 05/20/18 10:44 Dose: 240 mg - Labs Labs: 05/20/18 08:43 05/20/18 08:43 PT 17.3 SECONDS (9.7-12.2) H 05/19/18 13:54 INR 1.6 05/19/18 13:54 APTT 47 SECONDS (21-34) H 05/19/18 13:54 Attending/Attestation - Attestation I have personally seen and examined this patient.: Yes I have fully participated in the care of the patient.: Yes I have reviewed all pertinent clinical information, including history, physical exam and plan: Yes Notes (Text): Patient seen, examined, and case discussed with medical investigator. Patient seen this morning with daughter present at bedside. Noted patient having been reporting worsening shortness of breath the past 5 days height completed by mouth steroid treatment. Did not find improvement nor relief. Patient had refused CT chest because she could not lie flat and felt orthopneic. Patient had refused ABG she does not like any poked I have indicated to her that with the ABG would allow for better assessment and she is amenable to later attempt. Patient and family did meet with palliative care and opted to be DNR/DNI. We will try PA and lateral chest x-ray since patient is allowed to stand and feels comfortable. We'll follow up with both cardiology and pulmonology. Per discussion with patient and family, patient had seen her alodize machine helper for her six-month follow-up was noted to have hypokalemia did not want to try medications but has been supplementing her potassium in her diet. Patient has borderline normal high potassium I did advise family at bedside to not supplement at this time. 72 year old Female with PMHX: COPD on 3L O2 continuously for past 2 years, HTN, lymphoma s/p chemo and surgical resection 1989, atrial fibrillation, seasonal/ environmental allergies; bilateral cataracts. (No prior documentation of CHF) 1) Severe Persistent COPD with bronchitis Mild to Moderate Pulmonary Hypertension Assessment/Plan * Monitor on telemetry * Pulmonary (Dr. Sahu) consulted--> help appreciated * Cardiology (Dr. Campos) on board-->help appreciated * Chest xray (05/20/18): no active disease * Duonebs scheduled * Solumedrol 40mg IV Q8H * Advair 250/540 1 puff inhaled Q12H * c/w Doxycyline 100mg PO BID * Start Lasix 20mg IV q daily * Patient had refused ABG and cannot lie flat for CT chest/neck due to orthopnea * Will repeat Chest xray PA and Lateral * order for Legionella, Mycoplasma IgM, Strep pneumonaie 2) Orthopnea Possible Cor Pulmonale Assessment/Plan * Elevated probnp * Echocardiogram: 03/01/2018: LVEF 59.9%; left ventricular systolic function is normal; mild-moderate pulmonary hypertension. see full report) * c/w verapamil 240mg PO HS * c/w Xarelto 20mg PO HS 3) Hypertension Assessment/Plan * c/w cozaar 100mg PO daily * HOLD home medication HCTZ 25mg PO daily due to alkaosis * c/w verapamil 240mg PO HS * heart healthy 2g sodium diet * continue to monitor 4) History of Atrial Fibrillation Assessment/Plan * Cardiology (Dr. Campos) on board-->help appreciated * Echocardiogram: 03/01/2018: LVEF 59.9%; left ventricular systolic function is normal; mild-moderate pulmonary hypertension. see full report) * c/w verapamil 240mg PO HS * c/w Xarelto 20mg PO HS 5) Prophylactic measure * patient on Xarelto 20mg PO HS * pepcid 20mg PO BID * Physical Therapy Eval and Treat * Head Elevation 45 degrees * Code Status: DNR/DNI * Palliative Consult: POLST
[2018-05-20 09:10] LABS: ALB/GLOB RATIO 1.5 (1.0-2.1); ALBUMIN 4.1 g/dL (3.5-5.0); ALT/SGPT 27 U/L (9-52); AST/SGOT 26 U/L (14-36); BLOOD UREA NITROGEN 27 mg/dL (7-17); CALCIUM 9.6 mg/dl (8.6-10.4); GFR AFRICAN-AMERICAN > 60; GFR NON-AFRICAN AMERICAN 54
[2018-05-20] MEDS: Saccharomyces Boulardi 250 mg Cap PO SCH ×2 (10:44→18:24)
[2018-05-20] MEDS: Verapamil 240 mg ER Tab PO SCH (10:44)
--- NOTE | 2018-05-20 13:43 | CP.PCM.CON ---
History of Present Illness - History of Present Illness History of Present Illness: Palliative consult requested by Doctor Persaud for goals of care discussion Patient is a 72 yo female admitted from home with SOB. Patient had been SOB for while, was given Prednisone at home by her [employer] [employer], but condition did not improve. Upon admission CXR showed some congestion. CT chest was not tolerated by the patient as she could not lay flat. Lasix 20 mg IV daily , Solumedrol, Spiriva and other vasodilators on board. Patient Verbally requested DNR/DNI status. Family meeting was held today to discuss POLST. PMH: COPD, HTN, A Fib, O2 at home Soc. Hx: smoked 1 ppd until 4 years ago, lives at home with her daughter, single , visited by Jamila ANGUIANO in community ( [facility]) Fam. Hx: Parents from natural Review of Systems - EENT Eyes: absent: As Per HPI, Blind Spots, Blurred Vision, Change in Vision, Decreased Night Vision, Diplopia, Discharge, Dry Eye, Exophthalmos, Floaters, Irritation, Itchy Eyes, Loss of Peripheral Vision, Pain, Photophobia, Requires Corrective Lenses, Sees Flashes, Spots in Vision, Tunnel Vision, Other Visual Disturbances, Loss of Vision, Other Ears: absent: As Per HPI, Decreased Hearing, Ear Discharge, Ear Pain, Tinnitus, Abnormal Hearing, Disequilibrium, Dizziness, Other Nose/Mouth/Throat: absent: As Per HPI, Epistaxis, Nasal Congestion, Nasal Discharge, Nasal Obstruction, Nasal Trauma, Nose Pain, Post Nasal Drip, Sinus Pain, Sinus Pressure, Bleeding Gums, Change in Voice, Dental Pain, Dry Mouth, Dysphagia, Halitosis, Hoarsness, Lip Swelling, Mouth Lesions, Mouth Pain, Odynophagia, Sore Throat, Throat Swelling, Tongue Swelling, Facial Pain, Neck Pain, Neck Mass, Other - Breasts Breasts: absent: As Per HPI, Change in Shape, Mass, Pain, Nipple Discharge, Nipple Inversion, Skin Changes, Swelling, Other - Cardiovascular Cardiovascular: Dyspnea, Dyspnea on Exertion - Respiratory Respiratory: Dyspnea on Exertion, Chest Congestion, Excessive Mucous Production - Gastrointestinal Gastrointestinal: absent: As Per HPI, Abdominal Pain, Belching, Bloating, Change in Bowel Habits, Change in Stool Character, Coffee Ground Emesis, Constipation, Cramping, Diarrhea, Dyspepsia, Dysphagia, Early Satiety, Excessive Flatus, Fecal Incontinence, Heartburn, Hematemesis, Hematochezia, Loose Stools, Melena, Nausea, Odynophagia, Temesmus, Vomiting, Other - Genitourinary Genitourinary: absent: As Per HPI, Change in Urinary Stream, Difficulty Urinating, Dysuria, Flank Pain, Hematuria, Pyuria, Nocturia, Urinary Incontinence, Urinary Frequency, Urinary Hesitance, Urinary Urgency, Voiding Freq/Small Amts, Freq UTI, Hx Renal/Bladder Calculi, Hx /Renal Surgery, Bladder Distension, Other - Reproductive: Female Reproductive:Female: Post Menopausal - Menstruation Menstruation: Post Menopausal - Musculoskeletal Musculoskeletal: Stiffness - Integumentary Integumentary: absent: As Per HPI, Acne, Alopecia, Bleeding Lesions, Change in Hair, Change in Nails, Change in Pigmentation, Changing Lesions, Dry Skin, Erythema, Furuncle, Hirsutism, Lesions, New Lesions, Non-Healing Lesions, Photosensitivity, Pruritus, Rash, Skin Pain, Skin Ulcer, Sores, Striae, Swelling , Unusual Bruising, Wounds, Jaundice, Other - Neurological Neurological: absent: As Per HPI, Abnormal Gait, Abnormal Hearing, Abnormal Movements, Abnormal Speech, Behavioral Changes, Burning Sensations, Confusion, Convulsions, Disequilibrium, Dizziness, Numbness, Focal Weakness, Frequent Falls , Headaches, Lack of Coordination, Loss of Vision, Memory Loss, Paresthesias, Radicular Pain, Restless Legs, Sensory Deficit, Syncope, Tingling, Tremor, Vertigo, Weakness, Other Visual Disturbances, Other - Psychiatric Psychiatric: absent: As Per HPI, Abnormal Sleep Pattern, Anhedonia, Anxiety, Auditory Hallucinations, Behavioral Changes, Change in Appetite, Change in Libido, Confusion, Depression, Difficulty Concentrating, Hallucinations, Homicidal Ideation, Hopelessness, Irritability, Memory Loss, Mood Swings, Panic Attacks, Paranoia, Suicidal Ideation, Visual Hallucinations, Tactile Hallucinations, Other - Endocrine Endocrine: absent: As Per HPI, Change in Body Appearance, Change in Libido, Cold Intolorance, Deepening of Voice, Excessive Sweating, Fatigue, Flushing, Heat Intolorance, Increase in Ring/Shoe/Hat Size, Palpitations, Polydipsia, Polyphagia, Polyuria, Other - Hematologic/Lymphatic Hematologic: absent: As Per HPI, Easy Bleeding, Easy Bruising, Lymphadenopathy, Other Past Patient History - Infectious Disease Hx of Infectious Diseases: None - Past Medical History & Family History Past Medical History?: Yes - Past Social History Smoking Status: Former Smoker - CARDIAC Hx Atrial Fibrillation: Yes Hx Hypertension: Yes - PULMONARY Hx Asthma: Yes Hx Bronchitis: Yes Hx Chronic Obstructive Pulmonary Disease (COPD): Yes (on home O2) - NEUROLOGICAL Hx Neurological Disorder: No - HEENT Hx HEENT Problems: Yes Hx Cataracts: Yes - RENAL Hx Chronic Kidney Disease: No - ENDOCRINE/METABOLIC Hx Endocrine Disorders: No - HEMATOLOGICAL/ONCOLOGICAL Hx Blood Disorders: Yes - INTEGUMENTARY Hx Dermatological Problems: No - MUSCULOSKELETAL/RHEUMATOLOGICAL Hx Musculoskeletal Disorders: No Hx Falls: No - GASTROINTESTINAL Hx Gastrointestinal Disorders: No - GENITOURINARY/GYNECOLOGICAL Hx Genitourinary Disorders: No - PSYCHIATRIC Hx Substance Use: No - SURGICAL HISTORY Hx Surgeries: Yes Other/Comment: multiple removal of lymphoma-left groin(1989) - ANESTHESIA Hx Anesthesia: Yes Hx Anesthesia Reactions: No Hx Malignant Hyperthermia: No Meds Allergies/Adverse Reactions: Allergies Allergy/AdvReac Type Severity Reaction Status Date / Time No Known Allergies Allergy Verified 05/19/18 13:11 - Medications Medications: Current Medications Albuterol/Ipratropium (Duoneb 3 Mg/0.5 Mg (3 Ml) Ud) 3 ml INH RQ4 [facility] Last Admin: 05/20/18 11:14 Dose: 3 ml Doxycycline Hyclate (Doryx) 100 mg PO Q12H [facility] PRN Reason: Protocol Last Admin: 05/20/18 08:24 Dose: 100 mg Furosemide (Lasix) 20 mg IVP DAILY [facility] Losartan Potassium (Cozaar) 100 mg PO DAILY [facility] Last Admin: 05/20/18 10:44 Dose: 100 mg Methylprednisolone (Solu-Medrol) 40 mg IVP Q12H [facility] Last Admin: 05/20/18 08:25 Dose: 40 mg Montelukast Sodium (Singulair) 10 mg PO HS [facility] Last Admin: 05/19/18 22:22 Dose: 10 mg Rivaroxaban (Xarelto) 20 mg PO HS [facility] Last Admin: 05/19/18 22:22 Dose: 20 mg Saccharomyces Boulardii (Florastor) 250 mg PO BID [facility] Last Admin: 05/20/18 10:44 Dose: 250 mg Fluticasone/Salmeterol (Advair Diskus 250/50) 1 puff INH RQ12 [facility] Last Admin: 05/20/18 07:46 Dose: 1 puff Tiotropium [place] (Spiriva) 18 mcg INH RQ24 [facility] Last Admin: 05/20/18 07:21 Dose: 18 mcg Verapamil HCl (Calan Sr Tab) 240 mg PO DAILY [facility] Last Admin: 05/20/18 10:44 Dose: 240 mg Physical Exam - Constitutional Appears: Chronically Ill - Head Exam Head Exam: ATRAUMATIC, NORMAL INSPECTION, NORMOCEPHALIC - Eye Exam Eye Exam: EOMI, Normal appearance, PERRL Pupil Exam: NORMAL ACCOMODATION, PERRL - ENT Exam ENT Exam: Mucous Membranes Dry - Neck Exam Neck exam: Positive for: Normal Inspection - Respiratory Exam Respiratory Exam: Decreased Breath Sounds, Prolonged Expiratory Phase - Cardiovascular Exam Cardiovascular Exam: Tachycardia - GI/Abdominal Exam GI & Abdominal Exam: Normal Bowel Sounds - Rectal Exam Rectal Exam: Deferred - Extremities Exam Extremities exam: Positive for: normal inspection - Back Exam Back exam: NORMAL INSPECTION - Neurological Exam Neurological exam: Alert, Oriented x3 - Psychiatric Exam Psychiatric exam: Normal Affect, Normal Mood - Skin Skin Exam: Normal Color Results - Vital Signs Recent Vital Signs: Last Vital Signs Temp 97.6 F 05/20/18 07:35 Pulse 70 05/20/18 08:00 Resp 20 05/20/18 07:35 BP 156/81 H 05/20/18 07:35 Pulse Ox 98 05/20/18 07:56 - Labs Result Diagrams: 05/20/18 08:43 05/20/18 08:43 Labs: Laboratory Results - last 24 hr 05/19/18 05/19/18 05/19/18 13:54 13:54 13:54 WBC 9.2 RBC 4.31 Hgb 12.2 Hct 36.3 MCV 84.3 MCH 28.3 MCHC 33.6 RDW 14.3 Plt Count 342 MPV 8.1 Neut % (Auto) 87.5 H Lymph % (Auto) 9.1 L Crane % (Auto) 2.4 Eos % (Auto) 0.3 Baso % (Auto) 0.7 Neut # (Auto) 8.0 H Lymph # (Auto) 0.8 L [place] # (Auto) 0.2 Eos # (Auto) 0.0 Baso # (Auto) 0.1 Neutrophils % (Manual) 83 H Band Neutrophils % 1 Lymphocytes % (Manual) 11 L Reactive Lymphs % 1 H Monocytes % (Manual) 3 Metamyelocytes % 1 H Platelet Estimate Normal Ovalocytes Slight PT 17.3 H INR 1.6 APTT 47 H Sodium 143 Potassium 5.1 Chloride 92 L Carbon Dioxide 39 H Anion Gap 17 BUN 21 H Creatinine 0.9 Est GFR ( Amer) > 60 Est GFR (Non-Af Amer) > 60 Random Glucose 130 H Calcium 10.7 H Magnesium Total Bilirubin 0.7 AST 25 ALT 18 Alkaline Phosphatase 63 Total Creatine Kinase 41 CK-MB (Mass) 2.39 Troponin I 0.0360 NT-Pro-B Natriuret Pep 2760 H Total Protein 7.6 Albumin 4.5 Globulin 3.1 Albumin/Globulin Ratio 1.5 05/19/18 05/20/18 05/20/18 22:21 08:43 08:43 WBC 11.2 H RBC 4.19 Hgb 11.8 Hct 35.2 MCV 84.0 MCH 28.1 MCHC 33.4 RDW 14.2 Plt Count 325 MPV 8.4 Neut % (Auto) Lymph % (Auto) Crane % (Auto) Eos % (Auto) Baso % (Auto) Neut # (Auto) Lymph # (Auto) Crane # (Auto) Eos # (Auto) Baso # (Auto) Neutrophils % (Manual) Band Neutrophils % Lymphocytes % (Manual) Reactive Lymphs % Monocytes % (Manual) Metamyelocytes % Platelet Estimate Ovalocytes PT INR APTT Sodium 142 Potassium 4.4 Chloride 92 L Carbon Dioxide 38 H Anion Gap 16 BUN 27 H Creatinine 1.0 Est GFR ( Amer) > 60 Est GFR (Non-Af Amer) 54 Random Glucose 143 H Calcium 9.6 Magnesium 2.0 Total Bilirubin 0.5 AST 26 ALT 27 Alkaline Phosphatase 59 Total Creatine Kinase CK-MB (Mass) Troponin I 0.0330 NT-Pro-B Natriuret Pep Total Protein 7.0 Albumin 4.1 Globulin 2.8 Albumin/Globulin Ratio 1.5 Assessment & Plan - Assessment and Plan (Free Text) Assessment: Palliatve consult DNR/DNI, no Advance Directive on chart I reviewed medical record, all diagnostic studies, examined and interviewed patient in the bed. Patient is alert, oriented X 3 , in mild acute distress. Patient is slightly bent over, with " barrel chest" trying to easy her breathing effort. Expiratory p[hase is longer. Chest are congested on exam. There is increased sputum production. No cough reported. Abdomen is distended, active bowel sounds, denies constipation. Ambulates short distances only. Needs O2 supplement at all times. Patient was not able to tolerate CT chest and Doctor Jus was discussing it with patient and her daughter today. In presence of patient's daughter and grand daughter I reviewed patient's clinical condition with patient. She admitted feeling more short of breath than usual. Patient had felt little better after the Lasix. Patient understand that her condition is chronic and will never go away. Patient states she learned how to " live with her symptoms". Patient lives on first floor, has only 4 steps to climb and she is able to manage it. Patient is looking forward returning home . Code status discussed. Patient was very clear that she would nt want her life to be prlonged b life support. Patient does not want CPR, nor MV assisance. Her daughter cried. I reassured her that patient was not in immediate crisis and offered more information on POLST. Patient chose DNR/DNI. This was shared with furnace charger. Impression * Acute exacerbation of SOB * Possible CHF * Limited ambulation * SOB on exertion * Patient requesting DNR/DNI Suggestion * Continue Lasix * Continue neb Tx * Limit daily activities to preserve energy * O2 supplement * DNR/DNI * Discharge home planing Advance planing time 45 min
--- NOTE | 2018-05-20 16:07 | CP.PCM.CON ---
History of Present Illness - History of Present Illness History of Present Illness: The pt is a 72 year old woman, with normal LV systolic function, no sig valvular heart diease, episodic atrial fib, and COPD. Pt has marked dyspnea, admitted for respiratory treatment. BNP is elevated , yet cxr is clear. Pt feels better today. She is in nsr. Takes verapamil for afib prevention and htn. Xarelto. No chest pain. Review of Systems - Review of Systems All systems: reviewed and no additional remarkable complaints except (as above) Past Patient History - Infectious Disease Hx of Infectious Diseases: None - Past Medical History & Family History Past Medical History?: Yes - Past Social History Smoking Status: Former Smoker - CARDIAC Hx Atrial Fibrillation: Yes Hx Hypertension: Yes - PULMONARY Hx Asthma: Yes Hx Bronchitis: Yes Hx Chronic Obstructive Pulmonary Disease (COPD): Yes (on home O2) - NEUROLOGICAL Hx Neurological Disorder: No - HEENT Hx HEENT Problems: Yes Hx Cataracts: Yes - RENAL Hx Chronic Kidney Disease: No - ENDOCRINE/METABOLIC Hx Endocrine Disorders: No - HEMATOLOGICAL/ONCOLOGICAL Hx Blood Disorders: Yes - INTEGUMENTARY Hx Dermatological Problems: No - MUSCULOSKELETAL/RHEUMATOLOGICAL Hx Musculoskeletal Disorders: No Hx Falls: No - GASTROINTESTINAL Hx Gastrointestinal Disorders: No - GENITOURINARY/GYNECOLOGICAL Hx Genitourinary Disorders: No - PSYCHIATRIC Hx Substance Use: No - SURGICAL HISTORY Hx Surgeries: Yes Other/Comment: multiple removal of lymphoma-left groin(1989) - ANESTHESIA Hx Anesthesia: Yes Hx Anesthesia Reactions: No Hx Malignant Hyperthermia: No Meds Allergies/Adverse Reactions: Allergies Allergy/AdvReac Type Severity Reaction Status Date / Time No Known Allergies Allergy Verified 05/19/18 13:11 - Medications Medications: Current Medications Acetylcysteine (Acetylcysteine 20%) 4 ml INH Q6H [facility] Albuterol/Ipratropium (Duoneb 3 Mg/0.5 Mg (3 Ml) Ud) 3 ml INH RQ4 [facility] Last Admin: 05/20/18 11:14 Dose: 3 ml Doxycycline Hyclate (Doryx) 100 mg PO Q12H [facility] PRN Reason: Protocol Last Admin: 05/20/18 08:24 Dose: 100 mg Famotidine (Pepcid) 20 mg PO DAILY [facility] Furosemide (Lasix) 20 mg IVP DAILY [facility] Losartan Potassium (Cozaar) 100 mg PO DAILY [facility] Last Admin: 05/20/18 10:44 Dose: 100 mg Methylprednisolone (Solu-Medrol) 40 mg IVP Q8H [facility] Montelukast Sodium (Singulair) 10 mg PO HS [facility] Last Admin: 05/19/18 22:22 Dose: 10 mg Rivaroxaban (Xarelto) 20 mg PO HS [facility] Last Admin: 05/19/18 22:22 Dose: 20 mg Saccharomyces Boulardii (Florastor) 250 mg PO BID [facility] Last Admin: 05/20/18 10:44 Dose: 250 mg Fluticasone/Salmeterol (Advair Diskus 250/50) 1 puff INH RQ12 [facility] Last Admin: 05/20/18 07:46 Dose: 1 puff Tiotropium [place] (Spiriva) 18 mcg INH RQ24 [facility] Last Admin: 05/20/18 07:21 Dose: 18 mcg Verapamil HCl (Calan Sr Tab) 240 mg PO DAILY [facility] Last Admin: 05/20/18 10:44 Dose: 240 mg Physical Exam - Head Exam Head Exam: NORMAL INSPECTION - Eye Exam Eye Exam: EOMI Pupil Exam: NORMAL ACCOMODATION - ENT Exam ENT Exam: Mucous Membranes Moist - Neck Exam Neck exam: Positive for: Full Rom - Respiratory Exam Additional comments: crackesl up and down both lung koo - Cardiovascular Exam Cardiovascular Exam: REGULAR RHYTHM - GI/Abdominal Exam GI & Abdominal Exam: Normal Bowel Sounds - Exam External exam: NORMAL EXTERNAL EXAM - Extremities Exam Extremities exam: Positive for: normal inspection - Back Exam Back exam: NORMAL INSPECTION - Neurological Exam Neurological exam: Alert, CN II-XII Intact, Oriented x3 - Psychiatric Exam Psychiatric exam: Normal Affect - Skin Skin Exam: Normal Color Results - Vital Signs Recent Vital Signs: Last Vital Signs Temp 98.1 F 05/20/18 15:52 Pulse 60 05/20/18 15:52 Resp 20 05/20/18 15:52 BP 125/69 05/20/18 15:52 Pulse Ox 98 05/20/18 15:52 - Labs Result Diagrams: 05/20/18 08:43 05/20/18 08:43 Labs: Laboratory Results - last 24 hr 05/19/18 05/20/18 05/20/18 22:21 08:43 08:43 WBC 11.2 H RBC 4.19 Hgb 11.8 Hct 35.2 MCV 84.0 MCH 28.1 MCHC 33.4 RDW 14.2 Plt Count 325 MPV 8.4 Sodium 142 Potassium 4.4 Chloride 92 L Carbon Dioxide 38 H Anion Gap 16 BUN 27 H Creatinine 1.0 Est GFR ( Amer) > 60 Est GFR (Non-Af Amer) 54 Random Glucose 143 H Calcium 9.6 Magnesium 2.0 Total Bilirubin 0.5 AST 26 ALT 27 Alkaline Phosphatase 59 Troponin I 0.0330 Total Protein 7.0 Albumin 4.1 Globulin 2.8 Albumin/Globulin Ratio 1.5 - EKG Data EKG Interpreted by: Myself (nsr, non specific st changes) Assessment & Plan - Assessment and Plan (Free Text) Assessment: 1. S/ P afib: brief, was in 2017: in nsr, xarelto 2. Ppt has elevated bnp, yet cxr is clear. Crackles on lung exam are diffuse not just in bases, and suggest a pulmonary etiology. However, pt has elevated BNP, and has done well with lasix, and advise continuing po. 3. For HTN; mildly elevated. pt is already on diuretic. c channel alayna, and ARB. beta alayna contraindicated. Low dose clonidine.
[2018-05-20] MEDS: MethylPREDNISolone 40 mg Vial IVP SCH ×2 (16:32→23:12)
[2018-05-20 16:50] LABS: CK-MB 2.19 ng/mL (0.0-3.38); TROPONIN I 0.036 ng/mL (0.00-0.120)
[2018-05-20] MEDS: Acetylcysteine 20% Inhal Soln (4ml) INH SCH (17:09)
--- NOTE | 2018-05-20 17:31 | CP.PCM.CON ---
History of Present Illness - History of Present Illness History of Present Illness: admitted with severe dyspnea; currently feels slightly better no h/o URI Review of Systems - Constitutional Constitutional: Fatigue - Cardiovascular Cardiovascular: Dyspnea on Exertion - Respiratory Respiratory: Dyspnea, Wheezing Past Patient History - Infectious Disease Hx of Infectious Diseases: None - Past Medical History & Family History Past Medical History?: Yes - Past Social History Smoking Status: Former Smoker - CARDIAC Hx Atrial Fibrillation: Yes Hx Hypertension: Yes - PULMONARY Hx Asthma: Yes Hx Bronchitis: Yes Hx Chronic Obstructive Pulmonary Disease (COPD): Yes (on home O2) - NEUROLOGICAL Hx Neurological Disorder: No - HEENT Hx HEENT Problems: Yes Hx Cataracts: Yes - RENAL Hx Chronic Kidney Disease: No - ENDOCRINE/METABOLIC Hx Endocrine Disorders: No - HEMATOLOGICAL/ONCOLOGICAL Hx Blood Disorders: Yes - INTEGUMENTARY Hx Dermatological Problems: No - MUSCULOSKELETAL/RHEUMATOLOGICAL Hx Musculoskeletal Disorders: No Hx Falls: No - GASTROINTESTINAL Hx Gastrointestinal Disorders: No - GENITOURINARY/GYNECOLOGICAL Hx Genitourinary Disorders: No - PSYCHIATRIC Hx Substance Use: No - SURGICAL HISTORY Hx Surgeries: Yes Other/Comment: multiple removal of lymphoma-left groin(1989) - ANESTHESIA Hx Anesthesia: Yes Hx Anesthesia Reactions: No Hx Malignant Hyperthermia: No Meds Allergies/Adverse Reactions: Allergies Allergy/AdvReac Type Severity Reaction Status Date / Time No Known Allergies Allergy Verified 05/19/18 13:11 - Medications Medications: Current Medications Acetylcysteine (Acetylcysteine 20%) 4 ml INH Q6H [facility] Last Admin: 05/20/18 17:09 Dose: 4 ml Albuterol/Ipratropium (Duoneb 3 Mg/0.5 Mg (3 Ml) Ud) 3 ml INH RQ4 [facility] Last Admin: 05/20/18 17:09 Dose: 3 ml Clonidine HCl (Catapres) 0.1 mg PO BID [facility] Doxycycline Hyclate (Doryx) 100 mg PO Q12H [facility] PRN Reason: Protocol Last Admin: 05/20/18 08:24 Dose: 100 mg Famotidine (Pepcid) 20 mg PO DAILY [facility] Furosemide (Lasix) 20 mg IVP DAILY [facility] Losartan Potassium (Cozaar) 100 mg PO DAILY [facility] Last Admin: 05/20/18 10:44 Dose: 100 mg Methylprednisolone (Solu-Medrol) 40 mg IVP Q8H [facility] Last Admin: 05/20/18 16:32 Dose: 40 mg Montelukast Sodium (Singulair) 10 mg PO HS [facility] Last Admin: 05/19/18 22:22 Dose: 10 mg Rivaroxaban (Xarelto) 20 mg PO HS [facility] Last Admin: 05/19/18 22:22 Dose: 20 mg Saccharomyces Boulardii (Florastor) 250 mg PO BID [facility] Last Admin: 05/20/18 10:44 Dose: 250 mg Fluticasone/Salmeterol (Advair Diskus 250/50) 1 puff INH RQ12 [facility] Last Admin: 05/20/18 07:46 Dose: 1 puff Tiotropium [place] (Spiriva) 18 mcg INH RQ24 [facility] Last Admin: 05/20/18 07:21 Dose: 18 mcg Verapamil HCl (Calan Sr Tab) 240 mg PO DAILY [facility] Last Admin: 05/20/18 10:44 Dose: 240 mg Physical Exam - Constitutional Appears: Chronically Ill - Head Exam Head Exam: ATRAUMATIC, NORMOCEPHALIC - Eye Exam Eye Exam: Normal appearance Pupil Exam: PERRL - ENT Exam ENT Exam: Mucous Membranes Moist - Respiratory Exam Respiratory Exam: Decreased Breath Sounds, Rhonchi - Cardiovascular Exam Cardiovascular Exam: REGULAR RHYTHM, +S1, +S2 - GI/Abdominal Exam GI & Abdominal Exam: Normal Bowel Sounds - Rectal Exam Rectal Exam: Deferred - Neurological Exam Neurological exam: Alert, Oriented x3 - Psychiatric Exam Psychiatric exam: Normal Affect, Normal Mood Results - Vital Signs Recent Vital Signs: Last Vital Signs Temp 98.1 F 05/20/18 15:52 Pulse 60 05/20/18 15:52 Resp 20 05/20/18 15:52 BP 125/69 05/20/18 15:52 Pulse Ox 98 05/20/18 15:52 - Labs Result Diagrams: 05/20/18 08:43 05/20/18 08:43 Labs: Laboratory Results - last 24 hr 05/19/18 05/20/18 05/20/18 22:21 08:43 08:43 WBC 11.2 H RBC 4.19 Hgb 11.8 Hct 35.2 MCV 84.0 MCH 28.1 MCHC 33.4 RDW 14.2 Plt Count 325 MPV 8.4 Sodium 142 Potassium 4.4 Chloride 92 L Carbon Dioxide 38 H Anion Gap 16 BUN 27 H Creatinine 1.0 Est GFR ( Amer) > 60 Est GFR (Non-Af Amer) 54 Random Glucose 143 H Calcium 9.6 Magnesium 2.0 Total Bilirubin 0.5 AST 26 ALT 27 Alkaline Phosphatase 59 Total Creatine Kinase CK-MB (Mass) Troponin I 0.0330 Total Protein 7.0 Albumin 4.1 Globulin 2.8 Albumin/Globulin Ratio 1.5 05/20/18 16:23 WBC RBC Hgb Hct MCV MCH MCHC RDW Plt Count MPV Sodium Potassium Chloride Carbon Dioxide Anion Gap BUN Creatinine Est GFR ( Amer) Est GFR (Non-Af Amer) Random Glucose Calcium Magnesium Total Bilirubin AST ALT Alkaline Phosphatase Total Creatine Kinase 40 CK-MB (Mass) 2.19 Troponin I 0.0360 Total Protein Albumin Globulin Albumin/Globulin Ratio Assessment & Plan (1) CHF (congestive heart failure) Status: Acute (2) COPD (chronic obstructive pulmonary disease) Status: Chronic (3) COPD exacerbation Status: Resolved
[2018-05-20 17:33] LABS: LEGIONELLA AG URINE NEGATIVE (NEGATIVE)
[2018-05-20 18:31] LABS: MYCOPLASMA PNEUMONIAE IGM NEGATIVE (NEGATIVE)
--- NOTE | 2018-05-20 19:30 | CARD ---
APPROVED REPORT EKG Measurement Heart [id number] CT [id number] <Conclusion> Sinus rhythm with premature atrial complexes Cannot rule out Anterior infarct, age undetermined Abnormal ECG
[2018-05-20] MEDS: Fluticasone-Salmeterol 500-50mcg Diskus INH SCH (20:02)
[2018-05-21] MEDS: Albuterol-Ipratrop 3 mg / 0.5 (3 ml) UD INH SCH ×7 (00:24→19:54)
[2018-05-21] MEDS: Acetylcysteine 20% Inhal Soln (4ml) INH SCH ×5 (03:35→19:55)
[2018-05-21] MEDS: Tiotropium 18 mcg Cap For Inhalation INH SCH (07:40)
[2018-05-21] MEDS: Fluticasone-Salmeterol 500-50mcg Diskus INH SCH ×2 (07:40→19:54)
[2018-05-21 08:42] LABS: HEMOGLOBIN 11.5 g/dL (11.0-16.0); MEAN CELL VOLUME 83.9 fL (81.0-99.0); MEAN CORPUSCULAR HGB CONC 33.3 g/dL (33.0-37.0); MEAN PLATELET VOLUME 8.5 fL (7.2-11.7); RBC 4.09 Mil/uL (3.80-5.20); RED CELL DISTRIBUTION WIDTH 14.1 % (11.5-14.5); WHITE BLOOD COUNT 11.9 K/uL (4.8-10.8)
[2018-05-21] MEDS: MethylPREDNISolone 40 mg Vial IVP SCH ×3 (08:57→23:58)
[2018-05-21 09:12] LABS: ALB/GLOB RATIO 1.6 (1.0-2.1); ALBUMIN 4.1 g/dL (3.5-5.0); CALCIUM 9.4 mg/dl (8.6-10.4)
[2018-05-21] MEDS: Verapamil 240 mg ER Tab PO SCH (10:40)
[2018-05-21] MEDS: Saccharomyces Boulardi 250 mg Cap PO SCH ×2 (10:40→17:34)
[2018-05-21] MEDS ORDERED: Acetylcysteine 20% Inhal Soln (4ml) INH SCH ×2 (11:30→14:00)
--- NOTE | 2018-05-21 12:30 | RAD ---
Chest x-ray two views History: Shortness of breath. Comparison: 05/19/2018 Findings: Biapical pleural thickening with upper lobe granulomatous changes. Hyperinflation suggestive for COPD and or emphysematous changes. Consolidative changes at the right lung base. Bibasilar breast and nipple shadows. Calcification at the aortic knob. Tortuous aorta. Mild cardiomegaly. Degenerative changes in the spine. Impression: Biapical pleural thickening with upper lobe granulomatous changes. Hyperinflation suggestive for COPD and or emphysematous changes. Consolidative changes at the right lung base. Bibasilar breast and nipple shadows. Calcification at the aortic knob. Tortuous aorta. Mild cardiomegaly. Degenerative changes in the spine.
[2018-05-21 13:09] LABS: N MENINGITIS ACY/W135 NEGATIVE (NEGATIVE); N MENINGITIS B/ECOLI K1 NEGATIVE (NEGATIVE); STREP PNEUMONIAE NEGATIVE (NEGATIVE); STREPTOCOCCUS B NEGATIVE (NEGATIVE)
--- NOTE | 2018-05-21 14:02 | CP.PCM.PN ---
Subjective - Date & Time of Evaluation Date of Evaluation: 05/21/18 Time of Evaluation: 07:00 - Subjective Subjective: PGY-2 Progress Note Patient seen and examined at bedside and in no acute distress. Patient is still short of breath, but says her breathing feels much better than yesterday. Patient denies any fevers, chest pain, abdominal pain, nausea, vomiting, constipation, or diarrhea. Objective - Vital Signs/Intake and Output Vital Signs (last 24 hours): Temp Pulse Resp BP Pulse Ox 97.4 F L 80 20 126/60 96 05/21/18 07:25 05/21/18 07:25 05/21/18 07:25 05/21/18 09:57 05/21/18 09:17 Intake and Output: 05/21/18 05/21/18 06:59 18:59 Intake Total 1600 Balance 1600 - Medications Medications: Current Medications Acetylcysteine (Acetylcysteine 20%) 4 ml INH Q4H COUNT INCLUDES THE [facility] Last Admin: 05/21/18 11:31 Dose: 4 ml Albuterol/Ipratropium (Duoneb 3 Mg/0.5 Mg (3 Ml) Ud) 3 ml INH RQ4 KIM Last Admin: 05/21/18 11:32 Dose: Not Given Clonidine HCl (Catapres) 0.1 mg PO BID COUNT INCLUDES THE [facility] Last Admin: 05/21/18 10:43 Dose: 0.1 mg Famotidine (Pepcid) 20 mg PO DAILY KIM Last Admin: 05/21/18 09:56 Dose: 20 mg Furosemide (Lasix) 20 mg IVP DAILY KIM Last Admin: 05/21/18 09:57 Dose: 20 mg Losartan Potassium (Cozaar) 100 mg PO DAILY KIM Last Admin: 05/21/18 09:56 Dose: 100 mg Methylprednisolone (Solu-Medrol) 40 mg IVP Q8H KIM Last Admin: 05/21/18 08:57 Dose: 40 mg Montelukast Sodium (Singulair) 10 mg PO HS COUNT INCLUDES THE [facility] Last Admin: 05/20/18 21:06 Dose: 10 mg Rivaroxaban (Xarelto) 20 mg PO HS COUNT INCLUDES THE [facility] Last Admin: 05/20/18 21:06 Dose: 20 mg Roflumilast (Daliresp) 500 mcg PO DAILY COUNT INCLUDES THE [facility] Last Admin: 05/21/18 10:43 Dose: 500 mcg Saccharomyces Boulardii (Florastor) 250 mg PO BID COUNT INCLUDES THE [facility] Last Admin: 05/21/18 10:40 Dose: 250 mg Fluticasone/Salmeterol (Advair Diskus 500/50) 1 puff INH RQ12 COUNT INCLUDES THE [facility] Last Admin: 05/21/18 07:40 Dose: 1 puff Tiotropium Call[place] (Spiriva) 18 mcg INH RQ24 COUNT INCLUDES THE [facility] Last Admin: 05/21/18 07:40 Dose: 18 mcg Verapamil HCl (Calan Sr Tab) 240 mg PO DAILY COUNT INCLUDES THE [facility] Last Admin: 05/21/18 10:40 Dose: 240 mg - Labs Labs: 05/21/18 08:22 05/21/18 08:22 PT 17.3 SECONDS (9.7-12.2) H 05/19/18 13:54 INR 1.6 05/19/18 13:54 APTT 47 SECONDS (21-34) H 05/19/18 13:54 - Additional Findings Additional findings: - Constitutional Appears: Chronically Ill - Head Exam Head Exam: ATRAUMATIC, NORMAL INSPECTION - Eye Exam Eye Exam: EOMI, Normal appearance, PERRL Pupil Exam: NORMAL ACCOMODATION - ENT Exam ENT Exam: Mucous Membranes Moist - Respiratory Exam Respiratory Exam: Decreased Breath Sounds, Wheezes bilaterally, bibasaler rales - Cardiovascular Exam Cardiovascular Exam: Irregular Rhythm. absent: JVD - GI/Abdominal Exam GI & Abdominal Exam: Normal Bowel Sounds, Soft. absent: Tenderness - Extremities Exam Extremities exam: Positive for: normal capillary refill, normal inspection, pedal pulses present. Negative for: joint swelling, pedal edema, tenderness - Neurological Exam Neurological exam: Alert, CN II-XII Intact, Oriented x3 - Psychiatric Exam Psychiatric exam: Normal Affect, Normal Mood - Skin Skin Exam: Normal Color Assessment and Plan - Assessment and Plan (Free Text) Assessment: 1) Severe Persistent COPD with bronchitis Mild to Moderate Pulmonary Hypertension Assessment/Plan * Monitor on telemetry * Pulmonary (Dr. Sahu) consulted--> help appreciated * Cardiology (Dr. Kowalski) on board-->help appreciated * Chest xray (05/20/18): no active disease * Patient had refused ABG and cannot lie flat for CT chest/neck due to orthopnea * Will repeat Chest xray PA and Lateral * Legionella, Mycoplasma IgM, Strep pneumonaie negative Meds: * Duonebs scheduled * Solumedrol 40mg IV Q8H * Advair 250/540 1 puff inhaled Q12H * c/w Doxycyline 100mg PO BID * Start Lasix 20mg IV q daily 2) Orthopnea Assessment/Plan * Elevated probnp * Echocardiogram: 03/01/2018: LVEF 59.9%; left ventricular systolic function is normal; mild-moderate pulmonary hypertension. see full report * c/w verapamil 240mg PO HS * c/w Xarelto 20mg PO HS 3) Hypertension Assessment/Plan * c/w cozaar 100mg PO daily * HOLD home medication HCTZ 25mg PO daily due to alkaosis * c/w verapamil 240mg PO HS * heart healthy 2g sodium diet * continue to monitor 4) History of Atrial Fibrillation Assessment/Plan * Cardiology (Dr. Kowalski) on board-->help appreciated * Echocardiogram: 03/01/2018: LVEF 59.9%; left ventricular systolic function is normal; mild-moderate pulmonary hypertension. see full report * c/w verapamil 240mg PO HS * c/w Xarelto 20mg PO HS 5) Prophylactic measure * Xarelto 20mg PO HS * pepcid 20mg PO BID * Physical Therapy Eval and Treat * Head Elevation 45 degrees * Code Status: DNR/DNI * Palliative Consult: COURTNEY
[2018-05-21 23:15] VITALS: RESP 20
[2018-05-22] MEDS: Acetylcysteine 20% Inhal Soln (4ml) INH SCH ×4 (00:39→13:22)
[2018-05-22] MEDS: Albuterol-Ipratrop 3 mg / 0.5 (3 ml) UD INH SCH ×4 (00:39→13:22)
[2018-05-22 07:18] LABS: HEMOGLOBIN 11.2 g/dL (11.0-16.0); MEAN CELL VOLUME 84.1 fL (81.0-99.0); MEAN CORPUSCULAR HEMOGLOBIN 27.5 pg (27.0-31.0); MEAN CORPUSCULAR HGB CONC 32.7 g/dL (33.0-37.0); MEAN PLATELET VOLUME 8.6 fL (7.2-11.7); RBC 4.08 Mil/uL (3.80-5.20); RED CELL DISTRIBUTION WIDTH 14.4 % (11.5-14.5); WHITE BLOOD COUNT 12.3 K/uL (4.8-10.8)
[2018-05-22] MEDS: MethylPREDNISolone 40 mg Vial IVP SCH (07:44)
[2018-05-22 07:45] LABS: ALB/GLOB RATIO 1.8 (1.0-2.1); ALBUMIN 3.9 g/dL (3.5-5.0); ALT/SGPT 87 U/L (9-52); AST/SGOT 57 U/L (14-36); BLOOD UREA NITROGEN 40 mg/dL (7-17); CALCIUM 8.1 mg/dl (8.6-10.4); GFR AFRICAN-AMERICAN > 60; GFR NON-AFRICAN AMERICAN 54
[2018-05-22] MEDS: Fluticasone-Salmeterol 500-50mcg Diskus INH SCH (07:59)
[2018-05-22] MEDS: Tiotropium 18 mcg Cap For Inhalation INH SCH (07:59)
[2018-05-22 08:12] VITALS: O2SAT 100
[2018-05-22] MEDS: Saccharomyces Boulardi 250 mg Cap PO SCH (09:03)
[2018-05-22] MEDS: Verapamil 240 mg ER Tab PO SCH (09:03)
--- NOTE | 2018-05-22 09:46 | CP.PCM.DIS ---
<Prachi Rodriguez - Last Filed: 05/22/18 10:22> Provider - Provider Date of Admission: 05/21/18 17:24 Attending physician: Ronn Marrero MD Primary care physician: Dr. Francisco Consults: Cardio: Meghana Pulm: Adelina Palliative: Obradnaveed Time Spent in preparation of Discharge (in minutes): 45 Diagnosis - Discharge Diagnosis (1) COPD exacerbation Status: Resolved (2) Atrial fibrillation Status: Chronic (3) HTN (hypertension) Status: Chronic Hospital Course - Lab Results Lab Results: Micro Results 05/19/18 13:45 Blood Blood Culture - Preliminary NO GROWTH AFTER 48 HOURS 05/19/18 13:45 Blood Blood Culture - Preliminary NO GROWTH AFTER 48 HOURS Most Recent Lab Values WBC 12.3 K/uL (4.8-10.8) H 05/22/18 07:10 RBC 4.08 Mil/uL (3.80-5.20) 05/22/18 07:10 Hgb 11.2 g/dL (11.0-16.0) 05/22/18 07:10 Hct 34.3 % (34.0-47.0) 05/22/18 07:10 MCV 84.1 fL (81.0-99.0) 05/22/18 07:10 MCH 27.5 pg (27.0-31.0) 05/22/18 07:10 MCHC 32.7 g/dL (33.0-37.0) L 05/22/18 07:10 RDW 14.4 % (11.5-14.5) 05/22/18 07:10 Plt Count 320 K/uL (130-400) 05/22/18 07:10 MPV 8.6 fL (7.2-11.7) 05/22/18 07:10 Neut % (Auto) 87.5 % (50.0-75.0) H 05/19/18 13:54 Lymph % (Auto) 9.1 % (20.0-40.0) L 05/19/18 13:54 Bond % (Auto) 2.4 % (0.0-10.0) 05/19/18 13:54 Eos % (Auto) 0.3 % (0.0-4.0) 05/19/18 13:54 Baso % (Auto) 0.7 % (0.0-2.0) 05/19/18 13:54 Neut # (Auto) 8.0 K/uL (1.8-7.0) H 05/19/18 13:54 Lymph # (Auto) 0.8 K/uL (1.0-4.3) L 05/19/18 13:54 Bond # (Auto) 0.2 K/uL (0.0-0.8) 05/19/18 13:54 Eos # (Auto) 0.0 K/uL (0.0-0.7) 05/19/18 13:54 Baso # (Auto) 0.1 K/uL (0.0-0.2) 05/19/18 13:54 Neutrophils % (Manual) 83 % (50-75) H 05/19/18 13:54 Band Neutrophils % 1 % (0-2) 05/19/18 13:54 Lymphocytes % (Manual) 11 % (20-40) L 05/19/18 13:54 Reactive Lymphs % 1 % (0-0) H 05/19/18 13:54 Monocytes % (Manual) 3 % (0-10) 05/19/18 13:54 Metamyelocytes % 1 % (0-0) H 05/19/18 13:54 Platelet Estimate Normal (NORMAL) 05/19/18 13:54 Ovalocytes Slight 05/19/18 13:54 PT 17.3 SECONDS (9.7-12.2) H 05/19/18 13:54 INR 1.6 05/19/18 13:54 APTT 47 SECONDS (21-34) H 05/19/18 13:54 Sodium 137 mmol/L (132-148) 05/22/18 07:10 Potassium 4.7 mmol/L (3.6-5.2) 05/22/18 07:10 Chloride 89 mmol/L (98-107) L 05/22/18 07:10 Carbon Dioxide 36 mmol/L (22-30) H 05/22/18 07:10 Anion Gap 16 (10-20) 05/22/18 07:10 BUN 40 mg/dL (7-17) H 05/22/18 07:10 Creatinine 1.0 mg/dL (0.7-1.2) 05/22/18 07:10 Est GFR ( Amer) > 60 05/22/18 07:10 Est GFR (Non-Af Amer) 54 05/22/18 07:10 Random Glucose 131 mg/dL (65-105) H 05/22/18 07:10 Calcium 8.1 mg/dl (8.6-10.4) L 05/22/18 07:10 Magnesium 2.3 mg/dL (1.6-2.3) 05/22/18 07:10 Total Bilirubin 0.6 mg/dL (0.2-1.3) 05/22/18 07:10 AST 57 U/L (14-36) H D 05/22/18 07:10 ALT 87 U/L (9-52) H D 05/22/18 07:10 Alkaline Phosphatase 46 U/L (38-126) 05/22/18 07:10 Total Creatine Kinase 40 U/L (30-135) 05/20/18 16:23 CK-MB (Mass) 2.19 ng/mL (0.0-3.38) 05/20/18 16:23 Troponin I 0.0360 ng/mL (0.00-0.120) 05/20/18 16:23 NT-Pro-B Natriuret Pep 2760 pg/mL (0-900) H 05/19/18 13:54 Total Protein 6.1 g/dL (6.3-8.3) L 05/22/18 07:10 Albumin 3.9 g/dL (3.5-5.0) 05/22/18 07:10 Globulin 2.2 gm/dL (2.2-3.9) 05/22/18 07:10 Albumin/Globulin Ratio 1.8 (1.0-2.1) 05/22/18 07:10 H.influenzae Type B Ag Negative (NEGATIVE) 05/21/18 08:02 Ur L.pneumophila Ag Negative (NEGATIVE) 05/20/18 17:11 Mycoplasma pneumon IgM Negative (NEGATIVE) 05/20/18 17:11 N.meningitidis ACY/W135 Negative (NEGATIVE) 05/21/18 08:02 N.meningi B/E.coli K1 Ag Negative (NEGATIVE) 05/21/18 08:02 Group B Strep Antigen Negative (NEGATIVE) 05/21/18 08:02 S. pneumoniae Antigen Negative (NEGATIVE) 05/21/18 08:02 - Hospital Course Hospital Course: HPI: "72 year old female with past medical history of COPD who presents to the ER with complaint of difficulty breathing since last week. She states her visiting nurse started her on prednisone 20mg daily for 5 days last week and she completed the course today. She states the prednisone did not help her shortness of breath. She states her shortness of breath has not improved or progressed since last week. She states she is usually able to walk from her bed to the bathroom without gasping for air and for a week she finds herself gasping for air. Patient states that she sometimes has difficulty speaking in full sentences. She reports sleeping on three pillows at night and sleeps sitting up. Patient denies chest pain, cough, palpitations, lightheadedness or dizziness, nausea, vomiting, diarrhea or constipation, leg swelling, changes in weight, dysuria. She denies recent travel or sick contacts." Patient admitted for a severe COPD exacerbation. Patient placed on telemetry to be monitored. Chest xray showed no active disease. Legionella, Mycoplasma IgM, Strep pneumonaie negative. Patient treated with Duonebs scheduled, Solumedrol 40mg IV Q8H, Advair 250/540 1 puff inhaled Q12H, Doxycyline 100mg PO BID, and Lasix 20mg IV q daily. Patient originally started on Doxycyline, but discontinued as patient had no signs of infection. Pulmonology, Dr. Sahu was consulted. Patient will need to follow up with pulmonology as an outpatient. For patient's chronic hypertension patient was treated with cozaar 100mg PO daily and verapamil 240mg PO HS.Home medication HCTZ 25mg was held due to alkalosis. Patient was continued on home medications Verapamil and Xarelto for a fib. Patient was in NSR and rate controlled. Dr. Kowalski, cardiology, was consulted. Beta alayna contraindicated due to her COPD. Because pro bnp elevated, Lasix was continued. Clonidine was added for blood pressure control. Patient's last echocardiogram on 03/01/2018 showed LVEF 59.9%; left ventricular systolic function is normal; mild-moderate pulmonary hypertension. Upon discharge patient' s breathing was much improved. Patient no longer felt short of breath. This is a summary of the patient's hospital course, please see chart for details. Discharge Exam - Head Exam Head Exam: ATRAUMATIC, NORMOCEPHALIC - Eye Exam Eye Exam: EOMI, Normal appearance Pupil Exam: NORMAL ACCOMODATION - Respiratory Exam Respiratory Exam: Decreased Breath Sounds, Rales. absent: Accessory Muscle Use , NORMAL BREATHING PATTERN Additional comments: bilateral lower lobe rales - Cardiovascular Exam Cardiovascular Exam: REGULAR RHYTHM, RRR, +S1, +S2 - GI/Abdominal Exam GI & Abdominal Exam: Normal Bowel Sounds, Soft. absent: Tenderness - Extremities Exam Extremities exam: full ROM, normal inspection - Neurological Exam Neurological exam: Alert, Normal Gait, Oriented x3 - Psychiatric Exam Psychiatric exam: Normal Affect, Normal Mood - Skin Skin Exam: Intact, Normal Color, Warm Discharge Plan - Discharge Medications Prescriptions: predniSONE [predniSONE Tab] 10 mg PO DAILY 5 Days #15 tab - Follow Up Plan Condition: STABLE Disposition: HOME/ ROUTINE Instructions: Heart Failure, Adult, Atrial Fibrillation (DC), Exacerbation of COPD (DC), Prednisone Additional Instructions: Patient stable for discharge as per Dr. Marrero. Patient to continue all home medications. Patient explained she has enough home medications and does not need scripts. Patient should also start taking a Prednisone taper. Patient to take Prednisone 10mg, 5 tabs with breakfast on 05/23 4 tabs with breakfast on 05/24 3 tabs with breakfast on 05/25 2 tabs with breakfast on 05/26 1 tab with breakfast on 05/27 Patient should also please follow up with her primary doctor, Dr. Bella within 7-10 days. Patient should also follow up with allied health teacher, Dr. Sahu within 7-10 days. Patient will get home PT and home nursing home services from [facility]. Patient explained instructions who understands and agrees. Referrals: Gaurav Kowalski MD [Staff Provider] - Basil Sahu MD [Staff Provider] - <Ronn Marrero - Last Filed: 05/22/18 23:10> Provider - Provider Date of Admission: 05/21/18 17:24 Attending physician: Ronn Marrero MD Time Spent in preparation of Discharge (in minutes): 40 Hospital Course - Lab Results Lab Results: Micro Results 05/19/18 13:45 Blood Blood Culture - Preliminary NO GROWTH AFTER 3 DAYS 05/19/18 13:45 Blood Blood Culture - Preliminary NO GROWTH AFTER 3 DAYS Most Recent Lab Values WBC 12.3 K/uL (4.8-10.8) H 05/22/18 07:10 RBC 4.08 Mil/uL (3.80-5.20) 05/22/18 07:10 Hgb 11.2 g/dL (11.0-16.0) 05/22/18 07:10 Hct 34.3 % (34.0-47.0) 05/22/18 07:10 MCV 84.1 fL (81.0-99.0) 05/22/18 07:10 MCH 27.5 pg (27.0-31.0) 05/22/18 07:10 MCHC 32.7 g/dL (33.0-37.0) L 05/22/18 07:10 RDW 14.4 % (11.5-14.5) 05/22/18 07:10 Plt Count 320 K/uL (130-400) 05/22/18 07:10 MPV 8.6 fL (7.2-11.7) 05/22/18 07:10 Neut % (Auto) 87.5 % (50.0-75.0) H 05/19/18 13:54 Lymph % (Auto) 9.1 % (20.0-40.0) L 05/19/18 13:54 Bond % (Auto) 2.4 % (0.0-10.0) 05/19/18 13:54 Eos % (Auto) 0.3 % (0.0-4.0) 05/19/18 13:54 Baso % (Auto) 0.7 % (0.0-2.0) 05/19/18 13:54 Neut # (Auto) 8.0 K/uL (1.8-7.0) H 05/19/18 13:54 Lymph # (Auto) 0.8 K/uL (1.0-4.3) L 05/19/18 13:54 Bond # (Auto) 0.2 K/uL (0.0-0.8) 05/19/18 13:54 Eos # (Auto) 0.0 K/uL (0.0-0.7) 05/19/18 13:54 Baso # (Auto) 0.1 K/uL (0.0-0.2) 05/19/18 13:54 Neutrophils % (Manual) 83 % (50-75) H 05/19/18 13:54 Band Neutrophils % 1 % (0-2) 05/19/18 13:54 Lymphocytes % (Manual) 11 % (20-40) L 05/19/18 13:54 Reactive Lymphs % 1 % (0-0) H 05/19/18 13:54 Monocytes % (Manual) 3 % (0-10) 05/19/18 13:54 Metamyelocytes % 1 % (0-0) H 05/19/18 13:54 Platelet Estimate Normal (NORMAL) 05/19/18 13:54 Ovalocytes Slight 05/19/18 13:54 PT 17.3 SECONDS (9.7-12.2) H 05/19/18 13:54 INR 1.6 05/19/18 13:54 APTT 47 SECONDS (21-34) H 05/19/18 13:54 Sodium 137 mmol/L (132-148) 05/22/18 07:10 Potassium 4.7 mmol/L (3.6-5.2) 05/22/18 07:10 Chloride 89 mmol/L (98-107) L 05/22/18 07:10 Carbon Dioxide 36 mmol/L (22-30) H 05/22/18 07:10 Anion Gap 16 (10-20) 05/22/18 07:10 BUN 40 mg/dL (7-17) H 05/22/18 07:10 Creatinine 1.0 mg/dL (0.7-1.2) 05/22/18 07:10 Est GFR ( Amer) > 60 05/22/18 07:10 Est GFR (Non-Af Amer) 54 05/22/18 07:10 Random Glucose 131 mg/dL (65-105) H 05/22/18 07:10 Calcium 8.1 mg/dl (8.6-10.4) L 05/22/18 07:10 Magnesium 2.3 mg/dL (1.6-2.3) 05/22/18 07:10 Total Bilirubin 0.6 mg/dL (0.2-1.3) 05/22/18 07:10 AST 57 U/L (14-36) H D 05/22/18 07:10 ALT 87 U/L (9-52) H D 05/22/18 07:10 Alkaline Phosphatase 46 U/L (38-126) 05/22/18 07:10 Total Creatine Kinase 40 U/L (30-135) 05/20/18 16:23 CK-MB (Mass) 2.19 ng/mL (0.0-3.38) 05/20/18 16:23 Troponin I 0.0360 ng/mL (0.00-0.120) 05/20/18 16:23 NT-Pro-B Natriuret Pep 2760 pg/mL (0-900) H 05/19/18 13:54 Total Protein 6.1 g/dL (6.3-8.3) L 05/22/18 07:10 Albumin 3.9 g/dL (3.5-5.0) 05/22/18 07:10 Globulin 2.2 gm/dL (2.2-3.9) 05/22/18 07:10 Albumin/Globulin Ratio 1.8 (1.0-2.1) 05/22/18 07:10 H.influenzae Type B Ag Negative (NEGATIVE) 05/21/18 08:02 Ur L.pneumophila Ag Negative (NEGATIVE) 05/20/18 17:11 Mycoplasma pneumon IgM Negative (NEGATIVE) 05/20/18 17:11 N.meningitidis ACY/W135 Negative (NEGATIVE) 05/21/18 08:02 N.meningi B/E.coli K1 Ag Negative (NEGATIVE) 05/21/18 08:02 Group B Strep Antigen Negative (NEGATIVE) 05/21/18 08:02 S. pneumoniae Antigen Negative (NEGATIVE) 05/21/18 08:02 Attending/Attestation - Attestation I have personally seen and examined this patient.: Yes I have fully participated in the care of the patient.: Yes I have reviewed all pertinent clinical information, including history, physical exam and plan: Yes Notes (Text): 05/22/18 23:06 Patient was seen and examined shortly after resident. Exam, assessment and plan were gone over with Dr. Kavon Rodriguez. Spoke with Song Writer Chantal and she has set up Home PT and [facility] through [facility]. Confirmed with patient that she had enough of her home medications. Rx provided for Prednisone Taper [id number]. Ronn Marrero D.O.
[2018-05-22 16:12] VITALS: BP 115/60; PULSE 65; TEMP 97.7
== END 2018-05-22 16:07 | disposition home or self-care (01) | DRG 191 ==
LOC: C.ER 13:00 → C.9E 16:51 → C.5S 20:42 → OBSVTOIN 05-21 17:24
PROVIDERS: ADMIT Family Medicine; ATTEND Family Medicine
DX: J44.1 Chronic obstructive pulmonary disease with (acute) exacerbation (principal); E87.3 Alkalosis; I50.30 Unspecified diastolic (congestive) heart failure; E87.6 Hypokalemia; I27.20 Pulmonary hypertension, unspecified; I11.0 Hypertensive heart disease with heart failure; I48.91 Unspecified atrial fibrillation; Z66 Do not resuscitate; Z85.72 Personal history of non-Hodgkin lymphomas; Z99.81 Dependence on supplemental oxygen; Z87.891 Personal history of nicotine dependence

== ENCOUNTER 2019-02-03 15:22 | Observation (INO) | payer MEDICARE ==
--- NOTE | 2019-02-03 16:06 | C.PDOC ---
History Of Present Illness 73-year-old female with a PMHx of COPD, HTN, A Fib, brought in by ambulance for complains of worsening SOB since last night. Patient reports she began coughing 2-3 days ago, and bringing up clear sputum. No fever. Since the cough developed, patient has felt short of breath which progressively worsened last night. She also complains of right-sided back pain associated with coughing, as well as intermittent chills. Otherwise she denies any chest pain, dizziness, palpitations, nausea, vomiting, abdominal pain, leg pain or swelling. Patient received 1 albuterol neb en route per EMS. On arrival she reports improvement after treatment. Time Seen by Provider: 02/03/19 16:06 Chief Complaint (Nursing): Shortness Of Breath History Per: Patient History/Exam Limitations: no limitations Onset/Duration Of Symptoms: Days (x 2) Current Symptoms Are (Timing): Still Present Initiating Event: Upper Respiratory Illness Exacerbating Factor(s): Coughing Current Respiratory Medications: See Home Med List Additional History Per: EMS, Family Past Medical History Reviewed: Historical Data, Nursing Documentation, Vital Signs Vital Signs: Last Vital Signs Temp 98.0 F 02/03/19 15:31 Pulse 82 02/03/19 15:31 Resp 24 02/03/19 15:31 BP 116/44 L 02/03/19 15:31 Pulse Ox 98 02/03/19 15:31 - Medical History PMH: Asthma, Atrial Fibrillation, Bronchitis, COPD (on home O2), HTN Denies: Chronic Kidney Disease - [facility] Procedures ASSISTANCE WITH RESPIRATORY VENTILATION, >96 HRS, CPAP (11/15/15) INFLUENZA VACCINATION (12/11/14) VACCINATION NEC (12/11/14) Family History: States: Unknown Family Hx - Social History Hx Tobacco Use: No (Quit) Hx Alcohol Use: No Hx Substance Use: No - Immunization History Hx Tetanus Toxoid Vaccination: No Hx Influenza Vaccination: Yes Hx Pneumococcal Vaccination: Yes (2014) Review Of Systems Constitutional: Positive for: Chills. Negative for: Fever, Other (body aches) Eyes: Negative for: Vision Change Cardiovascular: Negative for: Chest Pain, Palpitations Respiratory: Positive for: Cough, Shortness of Breath, Sputum (clear) Gastrointestinal: Negative for: Nausea, Vomiting, Abdominal Pain, Diarrhea Genitourinary: Negative for: Dysuria, Frequency Musculoskeletal: Positive for: Back Pain (with cough) Neurological: Negative for: Weakness, Numbness, Change in Speech, Headache, Dizziness Physical Exam - Physical Exam Appears: Non-toxic, No Acute Distress, Other (Speaking in full sentences) Skin: Warm, Dry, No Rash Head: Atraumatic, Normacephalic Eye(s): bilateral: Normal Inspection, EOMI Oral Mucosa: Moist Neck: Normal ROM Chest: Symmetrical Cardiovascular: Rhythm Regular, No Murmur Respiratory: No Accessory Muscle Use, Rhonchi (scattered), Wheezing (mild wheezing bilaterally), Other (No respiratory distress) Gastrointestinal/Abdominal: Bowel Sounds (active), Soft, No Tenderness, No Guarding Extremity: Bilateral: Atraumatic, Normal Color And Temperature, Normal ROM Pulses: Left Radial: Normal, Right Radial: Normal Neurological/Psych: Oriented x3, Normal Speech ED Course And Treatment - Laboratory Results Result Diagrams: 02/03/19 17:10 02/03/19 17:10 Lab Interpretation: No Acute Changes ECG: Interpreted By Me, Viewed By Me ECG Rhythm: Sinus Rhythm ECG Interpretation: No Acute Changes Rate From EC (sinus arrhythmia) O2 Sat by Pulse Oximetry: 98 (NC) Pulse Ox Interpretation: Normal - Radiology CXR: Interpreted by Me, Viewed By Me CXR Interpretation: Yes: COPD, Cardiomegaly, Other (consolidative changes right lung base ) Medical Decision Making Medical Decision Making: Impression: SOB, Cough Plan: Patient assessed and examined. Orders placed in for blood work, EKG, and CXR. Patient given 80 mg IV Solu-medrol and duoneb treatment x1. Labs reviewed elevated BNP. Mild hypokalemia. Ordered Lasix and KCl Re-evaluate the patient who is sitting up in stretcher on O2. She reports feeling unchanged. Denies chest pain. Disposition - Disposition Disposition: HOSPITALIZED Disposition Time: 18:34 Condition: STABLE - POA Present On Arrival: None - Clinical Impression Clinical Impression: CHF (congestive heart failure), COPD (chronic obstructive pulmonary disease) - PA / [employer] OPERATOR / Resident Statement MD/DO has reviewed & agrees with the documentation as recorded. - Scribe Statement The provider has reviewed the documentation as recorded by the Scribe Altagracia Grimes All medical record entries made by the Scribe were at my direction and personally dictated by me. I have reviewed the chart and agree that the record accurately reflects my personal performance of the history, physical exam, medical decision making, and the department course for this patient. I have also personally directed, reviewed, and agree with the discharge instructions and disposition. Decision To Admit - Pt Status Changed To: Hospital Disposition Of: Observation - . Bed Request Type: Regular Admitting Physician: Gagandeep Alonso Patient Diagnosis: COPD (chronic obstructive pulmonary disease), CHF (congestive heart failure)
[2019-02-03] MEDS ORDERED: Albuterol-Ipratrop 3 mg / 0.5 (3 ml) UD IH STA (16:15)
[2019-02-03] MEDS ORDERED: Albuterol-Ipratrop 3 mg / 0.5 (3 ml) UD ONE (16:32)
[2019-02-03] MEDS ORDERED: MethylPREDNISolone 40 mg Vial ONE (16:32)
[2019-02-03 17:17] LABS: BASO % 0.6 % (0.0-2.0); EOS # 0.2 K/uL (0.0-0.7); EOS % 2.8 % (0.0-4.0); HEMOGLOBIN 11.2 g/dL (11.0-16.0); LYMPH # 0.9 K/uL (1.0-4.3); LYMPH % 13.5 % (20.0-40.0); MEAN CELL VOLUME 83.8 fL (81.0-99.0); MEAN CORPUSCULAR HEMOGLOBIN 26.3 pg (27.0-31.0); MEAN CORPUSCULAR HGB CONC 31.4 g/dL (33.0-37.0); MEAN PLATELET VOLUME 8.4 fL (7.2-11.7); MONO # 1.2 K/uL (0.0-0.8); MONO % 16.8 % (0.0-10.0); NEUT # 4.6 K/uL (1.8-7.0); NEUT % 66.3 % (50.0-75.0); NRBC % 0.1 % (0.0-2.0); RBC 4.26 Mil/uL (3.80-5.20); RED CELL DISTRIBUTION WIDTH 14.1 % (11.5-14.5)
[2019-02-03 17:37] LABS: ALB/GLOB RATIO 1.5 (1.0-2.1); CALCIUM 9.3 mg/dl (8.6-10.4)
[2019-02-03] MEDS ORDERED: Potassium Chloride 20 mEq ER Tab PO STA (18:11)
[2019-02-03] MEDS ORDERED: Potassium Chloride 20 mEq ER Tab PO ONE (18:49)
--- NOTE | 2019-02-03 19:56 | CP.PCM.HP ---
<Stanley Bhakta - Last Filed: 02/04/19 02:08> History of Present Illness - History of Present Illness History of Present Illness: H&P for Dr. Owen 73 F w/ PMHx of COPD, CHF (w/ preserved EF), HTN, afib, seasonal allergies, lymphoma presents to ED for 2 days of worsening SOB. Patient states she had productive cough with white phlegm since Saturday and started having SOB since yesterday. Patient denies fevers, chills, but states a family member had a sinus infection as of Saturday that she were being treated for w/ abx. Patient states she at baseline requires to sleep in a upright position which has not changed; however, she states she is able to talk fewer words due to SOB. Patient uses 3 L NC O2 at home. Patient denies recent travel. Patient unable to tolerate walking as much (unable to assess as patient remains only at home, and does not leave home). ROS: Denies fevers/ chills, chest pain, nausea, vomiting, abdominal pain, LE pain; admits to SOB w/ productive cough, headaches, feeling weak/tired PMD: Dr. Maryam Carranza: Dr. Sahu Cardio: Dr. Kowalski PMHx of COPD on 3L O2 continuously for past 2 years, HTN, lymphoma s/p chemo and surgical resection 1989, atrial fibrillation Meds: See EMR PSHx: lymphoma left groin, lipoma removal from scalp, Left breast cyst, b/l cat aract Allergies: Seasonal SHx: Former smoker 20+ years, denies ETOH, denies illicit drug use, performs all activities of daily living herself FHx: two sisters from lung cancer, one sister alive with lung cancer, father age 57- had HTN and stroke, mother had diabetes Code status: DNR/DNI Present on Admission - Present on Admission Any Indicators Present on Admission: No History of DVT/PE: No History of Uncontrolled Diabetes: No Urinary Catheter: No Decubitus Ulcer Present: No Review of Systems - Constitutional Constitutional: Fatigue. absent: Chills, Fever - EENT Eyes: absent: Blurred Vision, Change in Vision Nose/Mouth/Throat: absent: Dry Mouth, Mouth Pain - Cardiovascular Cardiovascular: Dyspnea. absent: Chest Pain, Chest Pain at Rest, Leg Edema, Leg Ulcers, Pedal Edema - Respiratory Respiratory: Dyspnea on Exertion, Excessive Mucous Production. absent: Chest Congestion - Gastrointestinal Gastrointestinal: absent: Abdominal Pain, Constipation, Diarrhea - Genitourinary Genitourinary: absent: Difficulty Urinating, Hematuria - Musculoskeletal Musculoskeletal: absent: Arthralgias, Atrophy, Back Pain - Integumentary Integumentary: absent: Skin Ulcer, Sores - Neurological Neurological: absent: Abnormal Hearing, Disequilibrium, Frequent Falls, Headaches - Psychiatric Psychiatric: absent: Confusion, Depression - Endocrine Endocrine: absent: Deepening of Voice Past Patient History - Infectious Disease Hx of Infectious Diseases: None - Past Medical History & Family History Past Medical History?: Yes - Past Social History Smoking Status: Former Smoker - CARDIAC Hx Atrial Fibrillation: Yes Hx Hypertension: Yes - PULMONARY Hx Asthma: Yes Hx Bronchitis: Yes Hx Chronic Obstructive Pulmonary Disease (COPD): Yes (on home O2) - NEUROLOGICAL Hx Neurological Disorder: No - HEENT Hx HEENT Problems: Yes Hx Cataracts: Yes - RENAL Hx Chronic Kidney Disease: No - ENDOCRINE/METABOLIC Hx Endocrine Disorders: No - HEMATOLOGICAL/ONCOLOGICAL Hx Blood Disorders: Yes - INTEGUMENTARY Hx Dermatological Problems: No - MUSCULOSKELETAL/RHEUMATOLOGICAL Hx Musculoskeletal Disorders: No Hx Falls: No - GASTROINTESTINAL Hx Gastrointestinal Disorders: No - GENITOURINARY/GYNECOLOGICAL Hx Genitourinary Disorders: No - PSYCHIATRIC Hx Substance Use: No - SURGICAL HISTORY Hx Surgeries: Yes Other/Comment: multiple removal of lymphoma-left groin(1989) - ANESTHESIA Hx Anesthesia: Yes Hx Anesthesia Reactions: No Hx Malignant Hyperthermia: No Meds Allergies/Adverse Reactions: Allergies Allergy/AdvReac Type Severity Reaction Status Date / Time No Known Allergies Allergy Verified 02/03/19 15:41 Physical Exam - Constitutional Appears: Non-toxic, No Acute Distress - Head Exam Head Exam: NORMAL INSPECTION - Eye Exam Eye Exam: EOMI, Normal appearance, PERRL Pupil Exam: NORMAL ACCOMODATION - ENT Exam ENT Exam: Mucous Membranes Moist - Respiratory Exam Respiratory Exam: Wheezes, NORMAL BREATHING PATTERN. absent: Decreased Breath Sounds, Rales, Stridor Additional comments: Wheeze Right Lower Lobe - Cardiovascular Exam Cardiovascular Exam: +S1, +S2. absent: JVD, Systolic Murmur - GI/Abdominal Exam GI & Abdominal Exam: Normal Bowel Sounds, Soft. absent: Distended, Guarding - Extremities Exam Extremities exam: Positive for: full ROM, normal inspection. Negative for: calf tenderness, joint swelling, pedal edema, tenderness - Back Exam Back exam: NORMAL INSPECTION. absent: CVA tenderness (L), CVA tenderness (R) - Neurological Exam Neurological exam: Alert, Oriented x3 - Psychiatric Exam Psychiatric exam: Normal Affect, Normal Mood - Skin Skin Exam: Dry, Intact, Normal Color, Warm Additional comments: Raised, hyperpigmented lesion on chest, approximately 1cm in diameter Results - Vital Signs Recent Vital Signs: Last Vital Signs Temp 98.6 F 02/03/19 19:15 Pulse 69 02/03/19 19:15 Resp 18 02/03/19 19:15 BP 140/69 02/03/19 19:15 Pulse Ox 99 02/03/19 19:15 - Labs Result Diagrams: 02/03/19 17:10 02/03/19 17:10 Labs: Laboratory Results - last 24 hr 02/03/19 02/03/19 17:10 17:10 WBC 7.0 RBC 4.26 Hgb 11.2 Hct 35.7 MCV 83.8 MCH 26.3 L MCHC 31.4 L RDW 14.1 Plt Count 253 MPV 8.4 Neut % (Auto) 66.3 Lymph % (Auto) 13.5 L [place] % (Auto) 16.8 H Eos % (Auto) 2.8 Baso % (Auto) 0.6 Neut # (Auto) 4.6 Lymph # (Auto) 0.9 L [place] # (Auto) 1.2 H Eos # (Auto) 0.2 Baso # (Auto) 0.0 Sodium 133 Potassium 3.1 L Chloride 92 L Carbon Dioxide 34 H Anion Gap 10 BUN 24 H Creatinine 1.3 H Est GFR ( Amer) 48 Est GFR (Non-Af Amer) 40 Random Glucose 111 H Calcium 9.3 Total Bilirubin 0.8 AST 21 ALT 21 Alkaline Phosphatase 66 NT-Pro-B Natriuret Pep 1030 H Total Protein 6.8 Albumin 4.0 Globulin 2.7 Albumin/Globulin Ratio 1.5 Assessment & Plan - Assessment and Plan (Free Text) Assessment: 73 F w/ PMHx of COPD, CHF, afib, presents w/ SOB/ cough, likely COPD exacerb ation secondary to influenza +/pneumonia Plan: COPD Exacerbation - Influenza Positive - ? Pneumonia - C/w duonebs, fluticasone/ vilanterol Q24, montelukast 10 mg HS, Spiriva 18 mcg - start tamiflu 75 mg PO BID X 5 days, azithyromycin 500 mg IVPB daily, ceftriaxone 1g IVPD daily, solumedrol 40 mg Q8H - droplet isolation - F/u Strep pneumo, mycoplasma, leginella Chronic Congestive heart failure, preserved EF - Echo 02/2018: EF 65- 70%, diastolic fxn abnormal, moderaed tricuspid regurg - BNP on admission 1030 - Lasix 20 IVP daily - c/w losartan 100 mg Po daily, HCTZ 25 mg PO daily History of Atrial fibrillation History of Hypertension - HR 70s - EKG sinus rhythm w/ marked sinus arrhythmia - Verapimil 240 mg daily PPx: - DVT: scds,VTE contraindicated do to patient already on xarelto - GI: Protonix 40 mg daily - Diet: Heart healthy <Henry Owen - Last Filed: 02/04/19 06:11> Results - Vital Signs Recent Vital Signs: Last Vital Signs Temp 98 F 02/04/19 00:00 Pulse 70 02/04/19 00:00 Resp 20 02/04/19 00:00 BP 119/68 02/04/19 00:00 Pulse Ox 98 02/04/19 00:00 - Labs Result Diagrams: 02/03/19 17:10 02/03/19 17:10 Labs: Laboratory Results - last 24 hr 02/03/19 02/03/19 02/03/19 17:10 17:10 23:30 WBC 7.0 RBC 4.26 Hgb 11.2 Hct 35.7 MCV 83.8 MCH 26.3 L MCHC 31.4 L RDW 14.1 Plt Count 253 MPV 8.4 Neut % (Auto) 66.3 Lymph % (Auto) 13.5 L [place] % (Auto) 16.8 H Eos % (Auto) 2.8 Baso % (Auto) 0.6 Neut # (Auto) 4.6 Lymph # (Auto) 0.9 L [place] # (Auto) 1.2 H Eos # (Auto) 0.2 Baso # (Auto) 0.0 Sodium 133 Potassium 3.1 L Chloride 92 L Carbon Dioxide 34 H Anion Gap 10 BUN 24 H Creatinine 1.3 H Est GFR ( Amer) 48 Est GFR (Non-Af Amer) 40 Random Glucose 111 H Calcium 9.3 Total Bilirubin 0.8 AST 21 ALT 21 Alkaline Phosphatase 66 NT-Pro-B Natriuret Pep 1030 H Total Protein 6.8 Albumin 4.0 Globulin 2.7 Albumin/Globulin Ratio 1.5 Influenza Typ A,B (EIA) Pos for influenza a H Assessment & Plan - Date & Time Date: 02/04/19 (I have seen and examined the patient. I agree with the findings and plan of care as documented by Dr. Bhakta. Patient with COPD exacerbation. Influenza positive. Continue home meds. Tamiflu. BIPAP as needed. History of CHF. Diastolic. Continue home meds. Monitor for acute changes.) Time: 06:10 Attending/Attestation - Attestation I have personally seen and examined this patient.: Yes I have fully participated in the care of the patient.: Yes I have reviewed all pertinent clinical information: Yes
[2019-02-03 20:56] VITALS: RESP 20
[2019-02-04] MEDS: MethylPREDNISolone 40 mg Vial IVP SCH ×2 (05:26→13:50)
--- NOTE | 2019-02-04 07:26 | RAD ---
Date of service: 02/03/2019 HISTORY: SOB COMPARISON: Chest radiographs 05/20/2018. FINDINGS: LUNGS: No active pulmonary disease. PLEURA: No significant pleural effusion identified, no pneumothorax apparent. CARDIOVASCULAR: Calcific atherosclerotic changes are seen related to the thoracic aorta. Normal cardiac size. No pulmonary vascular congestion. OSSEOUS STRUCTURES: No significant abnormalities. VISUALIZED UPPER ABDOMEN: Normal. OTHER FINDINGS: None. IMPRESSION: No interval acute cardiopulmonary disease appreciated.
[2019-02-04 07:50] VITALS: PULSE 89; O2SAT 97
[2019-02-04] MEDS: Albuterol-Ipratrop 3 mg / 0.5 (3 ml) UD INH SCH ×2 (07:57→14:05)
[2019-02-04] MEDS ORDERED: Tiotropium 18 mcg Cap For Inhalation INH SCH (08:00)
[2019-02-04] MEDS ORDERED: Fluticasone-Vilanterol 100/25mcg Diskus INH SCH (08:00)
[2019-02-04 08:04] VITALS: BP 158/84; TEMP 97.5
[2019-02-04 08:21] LABS: BASO % 0.1 % (0.0-2.0); HEMOGLOBIN 11.8 g/dL (11.0-16.0); LYMPH # 0.5 K/uL (1.0-4.3); LYMPH % 8.4 % (20.0-40.0); MEAN CELL VOLUME 83.2 fL (81.0-99.0); MEAN CORPUSCULAR HEMOGLOBIN 26.8 pg (27.0-31.0); MEAN CORPUSCULAR HGB CONC 32.2 g/dL (33.0-37.0); MEAN PLATELET VOLUME 8.4 fL (7.2-11.7); MONO # 0.1 K/uL (0.0-0.8); MONO % 2.5 % (0.0-10.0); NEUT # 5.2 K/uL (1.8-7.0); PLATELET COUNT 294 K/uL (130-400); RBC 4.39 Mil/uL (3.80-5.20); RED CELL DISTRIBUTION WIDTH 13.9 % (11.5-14.5); WHITE BLOOD COUNT 5.8 K/uL (4.8-10.8)
--- NOTE | 2019-02-04 08:32 | CP.PCM.PN ---
Objective - Vital Signs/Intake and Output Vital Signs (last 24 hours): Temp Pulse Resp BP Pulse Ox 97.5 F L 89 20 158/84 H 97 02/04/19 08:03 02/04/19 08:03 02/04/19 08:03 02/04/19 08:03 02/04/19 08:03 Intake and Output: 02/04/19 02/04/19 06:59 18:59 Intake Total 180 Balance 180 - Medications Medications: Current Medications Albuterol/Ipratropium (Duoneb 3 Mg/0.5 Mg (3 Ml) Ud) 3 ml INH RTID KIM Last Admin: 02/04/19 07:57 Dose: 3 ml Fluticasone/Vilanterol (Breo Ellipta 100-25 Mcg Inh) 1 puff INH RQ24 KIM Furosemide (Lasix) 20 mg IVP DAILY KIM Hydrochlorothiazide (Hydrodiuril) 25 mg PO DAILY KIM Azithromycin 500 mg/ Sodium (Chloride) 250 mls @ 250 mls/hr IVPB DAILY KIM; Protocol Ceftriaxone Sodium 1 gm/ (Sodium Chloride) 100 mls @ 100 mls/hr IVPB DAILY KIM; Protocol Losartan Potassium (Cozaar) 100 mg PO DAILY KIM Methylprednisolone (Solu-Medrol) 40 mg IVP Q8H KIM Last Admin: 02/04/19 05:26 Dose: 40 mg Montelukast Sodium (Singulair) 10 mg PO HS [facility] Last Admin: 02/03/19 22:05 Dose: 10 mg Oseltamivir Phosphate (Tamiflu Cap) 75 mg PO BID KIM; Protocol Stop: 02/09/19 00:46 Last Admin: 02/04/19 01:19 Dose: 75 mg Pantoprazole Sodium (Protonix Ec Tab) 40 mg PO DAILY KIM Rivaroxaban (Xarelto) 20 mg PO HS [facility] Last Admin: 02/03/19 22:05 Dose: 20 mg Tiotropium [place] (Spiriva) 18 mcg INH RQD KIM Last Admin: 02/04/19 08:00 Dose: Not Given Verapamil HCl (Calan Sr Tab) 240 mg PO DAILY KIM - Labs Labs: 02/04/19 08:09 02/03/19 17:10
[2019-02-04 08:35] LABS: ALB/GLOB RATIO 1.4 (1.0-2.1); ALBUMIN 4.4 g/dL (3.5-5.0); ALT/SGPT < 6 U/L (9-52); AST/SGOT 25 U/L (14-36); BLOOD UREA NITROGEN 30 mg/dL (7-17); CALCIUM 9.4 mg/dl (8.6-10.4); GFR NON-AFRICAN AMERICAN 44
[2019-02-04 08:52] LABS: LYMPHOCYTE 3 % (20-40); MONOCYTE 4 % (0-10); NEUTROPHIL 93 % (50-75); TOTAL CELLS COUNTED 100
[2019-02-04 08:53] LABS: HYPOCHROMIC SLIGHT; OVALOCYTES SLIGHT; PLATELET ESTIMATE NORMAL (NORMAL); POLYCHROMIC SLIGHT
[2019-02-04] MEDS ORDERED: Azithromycin 500 MG in Sodium Chloride 0.9% 250 ML IVPB SCH (10:00)
[2019-02-04] MEDS ORDERED: Verapamil 240 mg ER Tab PO SCH (10:00)
[2019-02-04] MEDS ORDERED: Pantoprazole 40 mg EC Tab PO SCH (10:00)
--- NOTE | 2019-02-04 12:37 | CARD ---
APPROVED REPORT Date of service: 02/03/2019 EKG Measurement Heart [id number] <Conclusion> Sinus rhythm with marked sinus arrhythmia Nonspecific ST and T wave abnormality Abnormal ECG
--- NOTE | 2019-02-04 13:30 | CP.PCM.DIS ---
Provider - Provider Date of Admission: 02/03/19 18:33 Attending physician: [facility] - Lab Results Lab Results: Most Recent Lab Values WBC 5.8 K/uL (4.8-10.8) 02/04/19 08:09 RBC 4.39 Mil/uL (3.80-5.20) 02/04/19 08:09 Hgb 11.8 g/dL (11.0-16.0) 02/04/19 08:09 Hct 36.5 % (34.0-47.0) 02/04/19 08:09 MCV 83.2 fL (81.0-99.0) 02/04/19 08:09 MCH 26.8 pg (27.0-31.0) L 02/04/19 08:09 MCHC 32.2 g/dL (33.0-37.0) L 02/04/19 08:09 RDW 13.9 % (11.5-14.5) 02/04/19 08:09 Plt Count 294 K/uL (130-400) 02/04/19 08:09 MPV 8.4 fL (7.2-11.7) 02/04/19 08:09 Neut % (Auto) 89.0 % (50.0-75.0) H 02/04/19 08:09 Lymph % (Auto) 8.4 % (20.0-40.0) L 02/04/19 08:09 [place] % (Auto) 2.5 % (0.0-10.0) 02/04/19 08:09 Eos % (Auto) 0.0 % (0.0-4.0) 02/04/19 08:09 Baso % (Auto) 0.1 % (0.0-2.0) 02/04/19 08:09 Neut # (Auto) 5.2 K/uL (1.8-7.0) 02/04/19 08:09 Lymph # (Auto) 0.5 K/uL (1.0-4.3) L 02/04/19 08:09 [place] # (Auto) 0.1 K/uL (0.0-0.8) 02/04/19 08:09 Eos # (Auto) 0.0 K/uL (0.0-0.7) 02/04/19 08:09 Baso # (Auto) 0.0 K/uL (0.0-0.2) 02/04/19 08:09 Neutrophils % (Manual) 93 % (50-75) H 02/04/19 08:09 Lymphocytes % (Manual) 3 % (20-40) L 02/04/19 08:09 Monocytes % (Manual) 4 % (0-10) 02/04/19 08:09 Platelet Estimate Normal (NORMAL) 02/04/19 08:09 Polychromasia Slight 02/04/19 08:09 Hypochromasia (manual) Slight 02/04/19 08:09 Ovalocytes Slight 02/04/19 08:09 Sodium 133 mmol/L (132-148) 02/04/19 08:09 Potassium 3.7 mmol/L (3.6-5.2) 02/04/19 08:09 Chloride 89 mmol/L (98-107) L 02/04/19 08:09 Carbon Dioxide 35 mmol/L (22-30) H 02/04/19 08:09 Anion Gap 13 (10-20) 02/04/19 08:09 BUN 30 mg/dL (7-17) H 02/04/19 08:09 Creatinine 1.2 mg/dL (0.7-1.2) 02/04/19 08:09 Est GFR ( Amer) 53 02/04/19 08:09 Est GFR (Non-Af Amer) 44 02/04/19 08:09 Random Glucose 209 mg/dL (65-105) H D 02/04/19 08:09 Calcium 9.4 mg/dl (8.6-10.4) 02/04/19 08:09 Phosphorus 4.6 mg/dL (2.5-4.5) H 02/04/19 08:09 Magnesium 1.7 mg/dL (1.6-2.3) 02/04/19 08:09 Total Bilirubin 0.5 mg/dL (0.2-1.3) 02/04/19 08:09 AST 25 U/L (14-36) 02/04/19 08:09 ALT < 6 U/L (9-52) L D 02/04/19 08:09 Alkaline Phosphatase 72 U/L (38-126) 02/04/19 08:09 NT-Pro-B Natriuret Pep 1030 pg/mL (0-900) H 02/03/19 17:10 Total Protein 7.5 g/dL (6.3-8.3) 02/04/19 08:09 Albumin 4.4 g/dL (3.5-5.0) 02/04/19 08:09 Globulin 3.0 gm/dL (2.2-3.9) 02/04/19 08:09 Albumin/Globulin Ratio 1.4 (1.0-2.1) 02/04/19 08:09 Influenza Typ A,B (EIA) Pos for influenza a (NEGATIVE) H 02/03/19 23:30 Discharge Exam - Head Exam Head Exam: NORMAL INSPECTION Discharge Plan - Follow Up Plan Condition: STABLE Disposition: HOME/ ROUTINE
== END 2019-02-04 15:35 | disposition home or self-care (01) ==
LOC: C.ER 15:22 → C.9E 18:33 → C.3T 19:59
PROVIDERS: ADMIT Hospitalist; ATTEND Hospitalist
DX: J10.00 Influenza due to other identified influenza virus with unspecified type of pneumonia (principal); I48.91 Unspecified atrial fibrillation; I50.32 Chronic diastolic (congestive) heart failure; I11.0 Hypertensive heart disease with heart failure; J44.0 Chronic obstructive pulmonary disease with (acute) lower respiratory infection; J44.1 Chronic obstructive pulmonary disease with (acute) exacerbation; Z80.1 Family history of malignant neoplasm of trachea, bronchus and lung; Z82.3 Family history of stroke
CPT/HCPCS: 36415; 71045; 80053; 83735; 83880; 84100; 85025; 86738; 87070; 87449; 87804; 93005; 94640; 96374; 99285; G0378; J0456; J0696; J1940; J2920; J2930; J7050